=== PATIENT | male | born 1945 | race Caucasian/White ===

== ENCOUNTER 2016-12-02 17:18 | Emergency (ER) | payer MEDICARE ==
[2016-12-02 17:41] VITALS: O2SAT 95
[2016-12-02] MEDS ORDERED: NORCO 5/325 MG PO ONE (17:53)
--- NOTE | 2016-12-02 18:24 | ERPHSYRPT ---
- History of Present Illness Time Seen by Provider: 12/02/16 17:24 Source: patient, family () Patient Subjective Stated Complaint: pt states he fell [place] this afternoon. pt c/o pain to left ribs. denies any other injuries. Triage Nursing Assessment: pt pink, warm, dry. no deformity noted to left ribs. pt ambulated into Er without difficulty. breathing wnl. Physician History: CC: fall Hx: 71 y/o patient of Dr Aguilar fell on the curb [place] [employer] [place] [employer]. He hit left ribs on curb. He has pain in left ribs. Fell this evening. No diff breathing. No hematuria. No neck or back pain. No other complaints or injuries. Occurred: just prior to arrival Loss of Consciousness: no loss of consciousness Severity of Pain-Max: mild Severity of Pain-Current: mild Allergies/Adverse Reactions: potassium [Potassium] Adverse Reaction (Intermediate, Verified 12/02/16 17:41) states feels hot flashes,states a presc. of it was making him itch,hot dairy Adverse Reaction (Intermediate, Uncoded 12/02/16 17:41) Diarrhea Home Medications: Cholestyramine/Aspartame [Cholestyramine Light Packet] 4 gm PO AC 08/03/14 [ History] Enalapril Maleate 10 mg [Vasotec 10 MG] 10 mg PO BID 08/03/14 [History] Gabapentin [Neurontin] 800 mg PO TID 08/03/14 [History] Lamotrigine [Lamictal] 150 mg PO BID 08/03/14 [History] Lorazepam 1 mg [Ativan 1 MG] 1 mg PO TID 08/03/14 [History] Memantine HCl [Namenda] 10 mg PO BID 08/03/14 [History] Tamsulosin HCl 0.4 mg [Flomax 0.4 MG] 0.4 mg PO HS 08/03/14 [History] Docusate Sodium 100 mg [Colace 100 MG] 100 mg PO DAILY 04/07/16 [History] Cyanocobalamin (Vitamin B-12) [Vitamin B12] 5,000 mcg PO DAILY 04/27/16 [History ] Latanoprost [Xalatan] 2.5 ml OP DAILY 04/27/16 [History] Melatonin 5 mg PO QHS 04/27/16 [History] Nitroglycerin 0.4 mg Tablet [Nitrostat 0.4 MG Tablet] 0.4 mg SL DAILY PRN PRN 04/27/16 [History] Acetaminophen [Tylenol] 325 mg PO DAILY PRN 05/05/16 [History] Aspirin 81 mg DAILY 05/05/16 [History] B2/Vit A,C & E/Lut/Zeaxanth/Mn [Icaps Tablet] 1 each PO BID 05/05/16 [History] Cholecalciferol (Vitamin D3) [Vitamin D] 400 unit PO DAILY 12/02/16 [History] Dutasteride [Avodart] 0.5 mg PO DAILY 12/02/16 [History] Famotidine [Pepcid] 40 mg PO DAILY 12/02/16 [History] Hx Tetanus, Diphtheria Vaccination/Date Given: Yes ([place]) Hx Influenza Vaccination/Date Given: Yes Hx Pneumococcal Vaccination/Date Given: No Immunizations Up to Date: Yes - Review of Systems Constitutional: No Symptoms Respiratory: No Dyspnea Cardiac: Chest Pain (left ribs) Abdominal/Gastrointestinal: No Abdominal Pain, No Nausea Musculoskeletal: Fall, No Back Pain, No Neck Pain Skin: No Rash Neurological: No Dizziness, No Focal Weakness, No Headache, No Parasthesia All Other Systems: Reviewed and Negative - Past Medical History Pertinent Past Medical History: Yes Neurological History: Alzheimer's Disease, Seizures ENT History: Cataracts, Glaucoma Cardiac History: Angina, Hypertension Respiratory History: No Pertinent History Endocrine Medical History: Other Musculoskeletal History: Osteoarthritis GI Medical History: Gallbladder Disease History: Renal Disease Psycho-Social History: Anxiety Male Reproductive Disorders: Prostate Problems - Past Surgical History Past Surgical History: Yes Neuro Surgical History: No Pertinent History Cardiac: No Pertinent History Respiratory: No Pertinent History Gastrointestinal: Hernia Repair Genitourinary: No Pertinent History Musculoskeletal: Joint Replacement Male Surgical History: Prostate Surgery Other Surgical History: dimas phaco with lens implant. prostate surgery.bilateral hip replacement - Social History Smoking Status: Never smoker Exposure to second hand smoke: No Drug Use: none Patient Lives Alone: No Significant Family History: no pertinent family hx - Nursing Vital Signs Nursing Vital Signs: Initial Vital Signs Temperature 98.1 F Temperature Source Oral Pulse Rate 83 Respiratory Rate 18 Blood Pressure [Right Arm] 146/76 Pain Intensity 9 - [place] Coma Score Best Eye Response (Monika): (4) open spontaneously Best Verbal Response ([place]): (5) oriented Best Motor Response ([place]): (6) obeys commands [place] Total: 15 - Physical Exam General Appearance: alert Head Injury: no evidence of injury Eye Exam: PERRL/EOMI ENT Exam: airway nml Neck Exam: supple, No mid-line tenderness Respiratory/Chest Exam: chest tenderness (left nandini lateral ribs, no crepitus , good breath sounds) Cardiovascular Exam: regular rate/rhythm Gastrointestinal Exam: soft, No tenderness, No distention Back Exam: normal inspection, No vertebral tenderness Extremity Exam: normal inspection, normal range of motion Neurologic Exam: alert, oriented x 3, cooperative, sensation nml, No motor deficits Skin Exam: warm, dry SpO2 Interpretation: normal SpO2: 95 Oxygen Delivery: Room Air Procedures - Limited Abd FAST Ultrasound Right Upper Quadrant Findings: No Free Fluid Left Upper Quadrant Findings: No Free Fluid Pelvis: no free fluid Progress: FAST per ERMD due to fall with left injury - Course Nursing assessment & vital signs reviewed: Yes - Radiology Exams cxr X-ray Interpretation: Reviewed by me, No Fracture, No Pneumothorax Ordered Tests: Active Orders 24 hr Category Date Time Status CHEST 2 VIEWS (PA AND LAT) Stat Exams 12/02/16 17:53 Taken [facility] Stat Lab 12/02/16 18:25 Received Medication Summary Discontinued Medications Generic Name Dose Route Start Last Admin Trade Name José Miguelq PRN Reason Stop Dose Admin Acetaminophen/Hydrocodone Bitart 1 tab 12/02/16 17:53 [place] 5/325 Mg PO 12/02/16 17:54 STAT ONE - Progress Progress Note: 12/02/16 18:36 Instr given. Counseled pt/family regarding: diagnosis, need for follow-up, rad results - Departure Time of Disposition: 18:37 Departure Disposition: Home Clinical Impression: Fall, Contusion of rib on left side Condition: Stable Critical Care Time: No Referrals: TOM AGUILAR MD [Primary Care Provider] - Instructions: Rib Contusion Additional Instructions: Ice packs off and on. Rx norco for pain. Return for trouble breathing, coughing up blood, or concerns. Follow up with Dr Aguilar. Prescriptions: Hydrocodone Bit/Acetaminophen [[place] 5-325 Tablet] 1 each PO Q6H PRN PRN #15 tablet PRN Reason: Pain
[2016-12-02] MEDS ORDERED: NORCO 5/325 MG ONE (18:41)
[2016-12-02 18:52] LABS: Collection Type CLEAN CATCH; Ph 5.5 (5-6)
[2016-12-02 18:53] LABS: COMPLETE URINE MICROSCOPIC? NO
[2016-12-02 19:05] VITALS: BP 140/80; PULSE 88
--- NOTE | 2016-12-03 08:03 | XRAY ---
Indication: Left-sided chest pain following fall. Comparison: June 03, 2016. PA/lateral chest again hyperinflated and clear. Heart and mediastinal structures within normal limits. Bony thorax intact with mild osteopenia and degenerative changes. Impression: Stable nonacute hyperinflated chest.
== END 2016-12-02 19:04 | disposition home or self-care (01) ==
LOC: ED 17:18
DX: S20.212A Contusion of left front wall of thorax, initial encounter (principal); R07.89 Other chest pain; G30.9 Alzheimer's disease, unspecified; F02.80 Dementia in other diseases classified elsewhere, unspecified severity, without behavioral disturbance, psychotic disturbance, mood disturbance, and anxiety; R56.9 Unspecified convulsions; Z79.899 Other long term (current) drug therapy; W10.1XXA Fall (on)(from) sidewalk curb, initial encounter; Y92.511 Restaurant or cafe as the place of occurrence of the external cause; I10 Essential (primary) hypertension
CPT/HCPCS: 71020; 81000; 99283; A9270-GY

== ENCOUNTER 2017-08-28 05:50 | Emergency (ER) | payer MEDICARE ==
[2017-08-28 05:58] VITALS: O2SAT 95
--- NOTE | 2017-08-28 06:35 | ERPHSYRPT ---
- History of Present Illness Time Seen by Provider: 08/28/17 06:31 Source: patient, EMS, long term records Exam Limitations: no limitations Patient Subjective Stated Complaint: Fall Triage Nursing Assessment: Pt sent from [facility] fall with abrasion to bridge of nose. Pt states no loss of consciousness, hx of alzheimers but currently A&O x4. No distress noted. Skin PWD. PERRL. Physician History: Pt sent from [facility] fall with abrasion to bridge of nose. Pt states no loss of consciousness, no other injuries noted Occurred: just prior to arrival Reason for Fall: tripped Injuries/Pain Location: face Loss of Consciousness: no loss of consciousness Severity of Pain-Max: mild Severity of Pain-Current: mild Modifying Factors: Improves With: nothing Associated Symptoms (Fall): denies symptoms Allergies/Adverse Reactions: potassium [Potassium] Adverse Reaction (Intermediate, Verified 12/02/16 17:41) states feels hot flashes,states a presc. of it was making him itch,hot dairy Adverse Reaction (Intermediate, Uncoded 12/02/16 17:41) Diarrhea Home Medications: Cholestyramine/Aspartame [Cholestyramine Light Packet] 4 gm PO AC 08/03/14 [ History] Enalapril Maleate 10 mg [Vasotec 10 MG] 10 mg PO BID 08/03/14 [History] Gabapentin [Neurontin] 800 mg PO TID 08/03/14 [History] Lamotrigine [Lamictal] 150 mg PO BID 08/03/14 [History] Lorazepam 1 mg [Ativan 1 MG] 1 mg PO TID 08/03/14 [History] Memantine HCl [Namenda] 10 mg PO BID 08/03/14 [History] Tamsulosin HCl 0.4 mg [Flomax 0.4 MG] 0.4 mg PO HS 08/03/14 [History] Docusate Sodium 100 mg [Colace 100 MG] 100 mg PO DAILY 04/07/16 [History] Cyanocobalamin (Vitamin B-12) [Vitamin B12] 5,000 mcg PO DAILY 04/27/16 [History ] Latanoprost [Xalatan] 2.5 ml OP DAILY 04/27/16 [History] Melatonin 5 mg PO QHS 04/27/16 [History] Nitroglycerin 0.4 mg Tablet [Nitrostat 0.4 MG Tablet] 0.4 mg SL DAILY PRN PRN 04/27/16 [History] Acetaminophen [Tylenol] 325 mg PO DAILY PRN 05/05/16 [History] Aspirin 81 mg DAILY 05/05/16 [History] B2/Vits A,C,E/Lut/Zeaxanth/Min [Icaps Tablet] 1 each PO BID 05/05/16 [History] Cholecalciferol (Vitamin D3) [Vitamin D] 400 unit PO DAILY 12/02/16 [History] Dutasteride [Avodart] 0.5 mg PO DAILY 12/02/16 [History] Famotidine [Pepcid] 40 mg PO DAILY 12/02/16 [History] Hx Tetanus, Diphtheria Vaccination/Date Given: No Hx Influenza Vaccination/Date Given: Yes Hx Pneumococcal Vaccination/Date Given: Yes Immunizations Up to Date: No - Review of Systems Constitutional: No Symptoms Eyes: No Symptoms Ears, Nose, & Throat: No Symptoms Respiratory: No Symptoms Cardiac: No Symptoms Abdominal/Gastrointestinal: No Symptoms Genitourinary Symptoms: No Symptoms Musculoskeletal: Fall Skin: Other (few abrasions on left forehead) Neurological: No Symptoms - Past Medical History Pertinent Past Medical History: Yes Neurological History: Alzheimer's Disease, Seizures ENT History: Cataracts, Glaucoma Cardiac History: Angina, Hypertension Respiratory History: No Pertinent History Endocrine Medical History: Other Musculoskeletal History: Osteoarthritis GI Medical History: Gallbladder Disease History: Renal Disease Psycho-Social History: Anxiety Male Reproductive Disorders: Prostate Problems Other Medical History: KIDNEY ISSUES TO SEE NEPROLOGIST NEXT MONTH - Past Surgical History Past Surgical History: Yes Neuro Surgical History: No Pertinent History Cardiac: No Pertinent History Respiratory: No Pertinent History Gastrointestinal: Hernia Repair Genitourinary: No Pertinent History Musculoskeletal: Joint Replacement Male Surgical History: Prostate Surgery Other Surgical History: dimas phaco with lens implant. prostate surgery.bilateral hip replacement - Social History Smoking Status: Never smoker Exposure to second hand smoke: No Drug Use: none Patient Lives Alone: No Significant Family History: no pertinent family hx - Nursing Vital Signs Nursing Vital Signs: Initial Vital Signs Temperature 97.9 F 08/28/17 05:51 Pulse Rate 100 H 08/28/17 05:51 Respiratory Rate 15 08/28/17 05:51 Blood Pressure 167/83 08/28/17 05:51 O2 Sat by Pulse Oximetry 95 08/28/17 05:51 Pain Scale Pain Intensity 0 - [place] Coma Score Best Eye Response ([place]): (4) open spontaneously Best Verbal Response ([place]): (5) oriented Best Motor Response ([place]): (6) obeys commands [place] Total: 15 - Physical Exam General Appearance: no apparent distress, alert Head Injury: no evidence of injury Eye Exam: PERRL/EOMI ENT Exam: airway nml Neck Exam: normal inspection, No tenderness Respiratory/Chest Exam: normal breath sounds, No chest tenderness, No respiratory distress Cardiovascular Exam: normal heart sounds, regular rate/rhythm Gastrointestinal Exam: soft, No tenderness, No distention, No guarding, No ecchymosis Back Exam: normal inspection, No vertebral tenderness Extremity Exam: normal inspection, normal range of motion, pelvis stable, No deformities Neurologic Exam: alert, oriented x 3, cooperative, sensation nml, No motor deficits Skin Exam: normal color, warm, dry, other (few superficial abrasions on left forehead) SpO2: 95 Oxygen Delivery: Room Air - Course Nursing assessment & vital signs reviewed: Yes - Radiology Exams Facial X-ray Interpretation: Reviewed by me Ordered Tests: Active Orders 24 hr Category Date Time Status FACIAL BONES (MINIMUM 3 VIEWS) Stat Exams 08/28/17 06:11 Ordered - Progress Progress: improved Counseled pt/family regarding: diagnosis, need for follow-up, rad results - Departure Time of Disposition: 06:34 Departure Disposition: Extended Care Facility Clinical Impression: Contusion of face Qualifiers: Encounter type: initial encounter Qualified Code(s): S00.83XA - Contusion of other part of head, initial encounter Fall at long term Qualifiers: Encounter type: initial encounter Qualified Code(s): W19.XXXA - Unspecified fall, initial encounter Condition: Stable Critical Care Time: No Referrals: VICENTE MANDEL [Primary Care Provider] - Instructions: Contusion, Prevent Falls Additional Instructions: SPRAINS/STRAINS/CONTUSIONS 1. Rest the affected area as much as possible for the next few days. 2. Apply ice to the affected area for 20-30 minutes at a time, several times a day. 3. If you receive an elastic wrap, wear it only while awake for comfort and support. Re-wrap the elastic wrap if it feels too tight or too loose. 4. If swelling is present, elevate the affected part above the level of the heart for at least 2 to 3 days. 5. Use splints, slings, or crutches as instructed. 6. Watch for severe swelling, coldness, numbness, and discoloration of the fingers and toes. See your family physician or return to the emergency department if any of these are noted.
[2017-08-28 07:57] VITALS: BP 155/84; PULSE 94
--- NOTE | 2017-08-28 09:38 | XRAY ---
Indication: Pain following fall. Comparison: None 4 views of the facial bones demonstrates minimally angulated fracture involving the tip of the nasal bone with overlying soft tissue swelling. Paranasal sinuses clear. No other bony, articular, or soft tissue abnormalities. Comment: Fracture not reported by the ER clinician. Telephone report given to Dr. Silva at 0930 hrs. on August 28, 2017.
== END 2017-08-28 07:45 ==
LOC: ED 05:50
DX: S00.83XA Contusion of other part of head, initial encounter (principal); S00.31XA Abrasion of nose, initial encounter; W19.XXXA Unspecified fall, initial encounter; Y93.9 Activity, unspecified; Y92.129 Unspecified place in nursing home as the place of occurrence of the external cause; I10 Essential (primary) hypertension; G40.909 Epilepsy, unspecified, not intractable, without status epilepticus; M19.90 Unspecified osteoarthritis, unspecified site; G30.9 Alzheimer's disease, unspecified; F02.80 Dementia in other diseases classified elsewhere, unspecified severity, without behavioral disturbance, psychotic disturbance, mood disturbance, and anxiety; Z79.899 Other long term (current) drug therapy; K82.9 Disease of gallbladder, unspecified; N28.9 Disorder of kidney and ureter, unspecified; F41.9 Anxiety disorder, unspecified
CPT/HCPCS: 70150; 99282

== ENCOUNTER 2020-03-26 14:03 | Emergency (ER) | payer MEDICARE ==
[2020-03-26 14:21] VITALS: BP 173/90; PULSE 80; O2SAT 98
--- NOTE | 2020-03-26 15:15 | XRAY ---
Indication: Abdomen/bowel pain. History constipation. Multiple contiguous axial images obtained through the abdomen and pelvis without contrast as ordered. Comparison: April 07, 2016. Lung bases again demonstrates bibasilar subsegmental atelectasis/scarring. Heart is not enlarged. Images through the pelvis Limited due to extreme beam artifact from bilateral total hip arthroplasty. Noncontrasted stomach and bowel loops again nonobstructed. There remains mild/moderate diffuse scattered colonic fecal debris throughout now including rectum. No free fluid/air. Interval cholecystectomy. Again micro-calculus in each kidney and scattered splenic calcified granulomas. Remaining liver, pancreas, spleen, adrenal glands, kidneys, ureters, and bladder appear unremarkable for noncontrast exam. There remains mild aortoiliac calcifications without AAA. Osseous structures again demonstrate osteopenia and mild/moderate degenerative changes throughout the thoracolumbar spine. New bilateral L1-L5 facet screws. Impression: 1. Again diffuse fecal stasis with now mild rectal impaction. 2. Stable nonobstructing bilateral renal micro-calculus and chronic bony findings. 3. New bilateral L4-L5 facet screws.
--- NOTE | 2020-03-26 15:20 | ERPHSYRPT ---
- History of Present Illness Time Seen by Provider: 03/26/20 14:19 Historian: patient Exam Limitations: no limitations Patient Subjective Stated Complaint: pt here for constipation today, he had a small b, but states there is pressure to rectum and he can feel stool Triage Nursing Assessment: pt alert, arrived per wc, skin w/d/p. resp easy, abd soft Physician History: Patient is a 74-year-old male presents to our ED for evaluation of constipation. Patient has not had a bowel movement in several days. Patient attempted a bowel movement earlier today and was unable to do so. Patient assisted himself with his digit and passed a small amount. Patient is here due to pain in his rectum. Patient states he feels as though it wants to come out but nothing is passing. No other symptomology. No nausea or vomiting. No fever. No trauma. No back pain. Symptoms are mild to moderate in intensity. No specific worsening improving factors. Patient voices no other complaints at this time. Timing/Duration: day(s) Activities at Onset: none Quality: pressure (Pressure sensation in rectum.) Abdominal Pain Onset Location: other (Nominal pain.) Pain Radiation: no radiation Severity of Pain-Current: mild Modifying Factors: Improves With: nothing Associated Symptoms: denies symptoms Previous symptoms: no prior history Allergies/Adverse Reactions: potassium [Potassium] Adverse Reaction (Intermediate, Verified 12/02/16 17:41) states feels hot flashes,states a presc. of it was making him itch,hot dairy Adverse Reaction (Intermediate, Uncoded 12/02/16 17:41) Diarrhea Home Medications: Cholestyramine/Aspartame [Cholestyramine Light Packet] 4 gm PO PC 08/03/14 [History] Enalapril Maleate 10 mg [Vasotec 10 MG] 10 mg PO BID 08/03/14 [History] Gabapentin [Neurontin] 800 mg PO QID 08/03/14 [History] Lorazepam 1 mg [Ativan 1 MG] 1 mg PO TID 08/03/14 [History] Memantine HCl [Namenda] 10 mg PO BID 08/03/14 [History] Tamsulosin HCl 0.4 mg [Flomax 0.4 MG] 0.4 mg PO HS 08/03/14 [History] lamoTRIgine [Lamictal] 150 mg PO BID 08/03/14 [History] Docusate Sodium 100 mg [Colace 100 MG] 100 mg PO DAILY 04/07/16 [History] Cyanocobalamin (Vitamin B-12) [Vitamin B12] 2,500 mcg PO DAILY 04/27/16 [History] Latanoprost [Xalatan] 1 drop OP DAILY 04/27/16 [History] Melatonin 5 mg PO QHS 04/27/16 [History] Nitroglycerin 0.4 mg Tablet [Nitrostat 0.4 MG Tablet] 0.4 mg SL DAILY PRN PRN 04/27/16 [History] Acetaminophen [Tylenol] 325 mg PO DAILY PRN 05/05/16 [History] Aspirin 81 mg PO DAILY 05/05/16 [History] B2/Vits A,C,E/Lut/Zeaxanth/Min [Icaps Tablet] 1 each PO BID 05/05/16 [History] Cholecalciferol (Vitamin D3) [Vitamin D] 400 unit PO DAILY 12/02/16 [History] Dutasteride [Avodart] 0.5 mg PO DAILY 12/02/16 [History] Famotidine [Pepcid] 40 mg PO DAILY 12/02/16 [History] Amlodipine Besylate 5 mg [Norvasc 5 mg] 5 mg PO DAILY 03/26/20 [History] Carboxymethylcell/Glycerin/Pf [Lubricant 0.5-0.9% Eye Drops] 1 drop OP DAILY PRN 03/26/20 [History] Diphenoxylate HCl/Atropine [Diphenoxylate-Atrop 2.5-0.025] 1 tablet PO DAILY 03/26/20 [History] Ferrous Sulfate 325 mg [Feosol 325 mg] 1 tablet PO DAILY 03/26/20 [History] Folic Acid 1 mg [Folate 1 mg] 1 mg PO DAILY 03/26/20 [History] Furosemide 40 mg [Lasix 40 MG] 40 mg PO DAILY 03/26/20 [History] Magnesium Oxide 400 mg [Mag-Ox 400] 400 mg PO BID 03/26/20 [History] Spironolactone 25 mg [Aldactone 25 MG] 25 mg PO DAILY 03/26/20 [History] Hx Tetanus, Diphtheria Vaccination/Date Given: No Hx Influenza Vaccination/Date Given: Yes Hx Pneumococcal Vaccination/Date Given: Yes Immunizations Up to Date: Yes Travel Risk - International Travel Have you traveled outside of the country in past 3 weeks: No - Coronavirus Screening Close contact with a COVID-19 positive Pt in past 14-21 Days: No - Review of Systems Constitutional: No Symptoms, No Fever, No Chills Eyes: No Symptoms Ears, Nose, & Throat: No Symptoms Respiratory: No Symptoms, No Cough, No Dyspnea Cardiac: No Symptoms, No Chest Pain, No Edema, No Syncope Abdominal/Gastrointestinal: No Symptoms, No Abdominal Pain, No Nausea, No Vomiting, No Diarrhea Genitourinary Symptoms: No Symptoms, No Dysuria Musculoskeletal: No Symptoms, No Back Pain, No Neck Pain Skin: No Symptoms, No Rash Neurological: No Symptoms, No Dizziness, No Focal Weakness, No Sensory Changes Psychological: No Symptoms Endocrine: No Symptoms Hematologic/Lymphatic: No Symptoms Immunological/Allergic: No Symptoms All Other Systems: Reviewed and Negative - Past Medical History Pertinent Past Medical History: Yes Neurological History: Alzheimer's Disease ENT History: Cataracts, Glaucoma Cardiac History: Hypertension Respiratory History: No Pertinent History Endocrine Medical History: No Pertinent History Musculoskeletal History: Arthritis GI Medical History: Gallbladder Disease History: Renal Disease Psycho-Social History: Anxiety Male Reproductive Disorders: Prostate Problems Other Medical History: KIDNEY ISSUES TO SEE NEPROLOGIST NEXT MONTH - Past Surgical History Past Surgical History: Yes Neuro Surgical History: No Pertinent History Cardiac: No Pertinent History Respiratory: No Pertinent History Gastrointestinal: Hernia Repair Genitourinary: No Pertinent History Musculoskeletal: Joint Replacement, Orthopedic Surgery Male Surgical History: Prostate Surgery Other Surgical History: dimas phaco with lens implant. prostate surgery.bilateral hip replacement,back - Social History Smoking Status: Never smoker Exposure to second hand smoke: No Drug Use: none Patient Lives Alone: No Significant Family History: no pertinent family hx - Nursing Vital Signs Nursing Vital Signs: Initial Vital Signs Temperature 97.9 F 03/26/20 14:15 Pulse Rate 80 03/26/20 14:15 Respiratory Rate 18 03/26/20 14:15 Blood Pressure 173/90 03/26/20 14:15 O2 Sat by Pulse Oximetry 98 03/26/20 14:15 Pain Scale Pain Intensity 10 - Physical Exam General Appearance: no apparent distress, alert Eye Exam: PERRL/EOMI, eyes nml inspection Ears, Nose, Throat Exam: normal ENT inspection, pharynx normal, moist mucous membranes Neck Exam: normal inspection, non-tender, supple, full range of motion Respiratory Exam: normal breath sounds, lungs clear, No respiratory distress Cardiovascular Exam: regular rate/rhythm, normal heart sounds Gastrointestinal/Abdomen Exam: soft, distention, other (Mildly distended abdomen.), No tenderness, No mass Back Exam: normal inspection, normal range of motion, No CVA tenderness, No vertebral tenderness Extremity Exam: normal inspection, normal range of motion, pelvis stable Neurologic Exam: alert, oriented x 3, cooperative, normal mood/affect, nml cerebellar function, sensation nml, No motor deficits Skin Exam: normal color, warm, dry SpO2 Interpretation: normal SpO2: 98 O2 Delivery: Room Air - Course Nursing assessment & vital signs reviewed: Yes - CT Exams Abdomen/Pelvis CT Interpretation: Tele-radiologist Report (Diffuse fecal stasis with now mild rectal impaction. Stable nonobstructing bilateral renal micro calculus and chronic bony findings. New bilateral L4-L5 facet screws.) Ordered Tests: Active Orders 24 hr Category Date Time Status Enema STAT Care 03/26/20 15:28 Active ABDOMEN AND PELVIS W/0 CONTRAS [CT] Stat Exams 03/26/20 14:23 Completed Medication Summary Discontinued Medications Generic Name Dose Route Start Last Admin Trade Name Freq PRN Reason Stop Dose Admin Ketorolac Tromethamine 30 mg 03/26/20 15:26 03/26/20 15:30 Toradol 30 Mg Injection IM 03/26/20 15:27 30 mg STAT ONE Administration Ketorolac Tromethamine Confirm 03/26/20 15:29 Toradol 30 Mg Injection Administered 03/26/20 15:30 Dose 30 mg .ROUTE .Pay-Me-MED ONE - Progress Progress: improved Progress Note: 03/26/20 17:[address] reveals fecal impaction. Patient was digitally disimpacted. Patient was given an enema. Patient had a bowel movement. Abdominal pain resolved. Patient requesting discharge. Patient agrees to follow-up with his primary care doctor within 48 hours reevaluation. Counseled pt/family regarding: diagnosis, need for follow-up, rad results - Departure Departure Disposition: Home Clinical Impression: Constipation, Nephrolithiasis, Osteopenia, Arthritis, lumbar spine Condition: Stable Critical Care Time: No Referrals: TOM AGUILAR MD [Primary Care Provider] - Additional Instructions: Discharge/Care Plan VIRGINIE SOL was seen on 03/26/20 in the Emergency Room. The patient was counseled regarding Diagnosis,Lab results, Imaging studies, need for follow up and when to return to the Emergency Room. Prescriptions given: Discharge Note I have spoken with the patient and/or caregivers. I have explained the patient's condition, diagnosis and treatment plan based on the information available to me at this time. I have answered the patient's and/or caregiver's questions and addressed any concerns. The patient and/or caregivers have as good understanding of the patient's diagnosis, condition and treatment plan as can be expected at this point. The vital signs have been stable. The patient's condition is stable and appropriate for discharge from the emergency department. The patient will pursue further outpatient evaluation with the primary care physician or other designated or consulting physician as outlined in the discharge instructions. The patient and/or caregivers are agreeable to this plan of care and follow-up instructions have been explained in detail. The patient and/or caregivers have received these instruction. The patient/and or caregivers are aware that any significant change in condition or worsening of symptoms should prompt an immediate return to this or the closest emergency department or call 911.
[2020-03-26] MEDS ORDERED: TORAdol 30 mg Injection IM ONE (15:26)
[2020-03-26] MEDS ORDERED: TORAdol 30 mg Injection ONE (15:29)
== END 2020-03-26 17:08 | disposition home or self-care (01) ==
LOC: ED 14:03
DX: K59.00 Constipation, unspecified (principal); N20.0 Calculus of kidney; M85.80 Other specified disorders of bone density and structure, unspecified site; M19.90 Unspecified osteoarthritis, unspecified site; M46.86 Other specified inflammatory spondylopathies, lumbar region; G30.9 Alzheimer's disease, unspecified; F02.80 Dementia in other diseases classified elsewhere, unspecified severity, without behavioral disturbance, psychotic disturbance, mood disturbance, and anxiety; Z79.899 Other long term (current) drug therapy
CPT/HCPCS: 74176; 96372; 99284; J1885

== ENCOUNTER 2020-07-14 10:28 | Observation (INO) | payer MEDICARE ==
[2020-07-14] MEDS ORDERED: Sodium Chloride 0.9% 1000 ML 1,000 ML IV SCH (10:45)
[2020-07-14 11:05] LABS: Absolute Neutrophil Ct (ANC) 6.31 (1.4-6.9); Basophil (Absolute #) 0 (0-0.4); Eosinophil (Absolute #) 0 (0-0.5); Hematocrit 47.4 % (42-50); Hemoglobin 16.3 gm/dl (12.5-18.0); Lymphocyte (Absolute #) 0.82 (1.0-4.6); Lymphocytes % 10.3 % (24.0-44.0); Mean Cell Volume 101.1 fl (78-100); Mean Corpuscular Hemoglobin 34.8 pg (26-32); Mean Corpuscular Hgb Concent. 34.4 g/dl (32-36); Mean Platelet Volume 9.4 fl (7.5-11.0); Monocyte (Absolute #) 0.87 (0.0-1.3); Monocytes % 10.9 % (0.0-12.0); Neutrophil % 78.8 % (36.0-66.0); Platelet Count 124 K/mm3 (150-450); Red Blood Count 4.69 M/mm3 (4.1-5.6); Red Cell Distribution Width 13.9 % (11.5-14.0)
--- NOTE | 2020-07-14 11:12 | ERPHSYRPT ---
- History of Present Illness Time Seen by Provider: 07/14/20 10:45 Source: patient Exam Limitations: no limitations Patient Subjective Stated Complaint: SOB Triage Nursing Assessment: Patient brought to ED via EMS and transferred to bed with assist of 3. Patient A+O X3. Patient's skin flushed, warm and dry. Patient complains of SOB, cough, fever, body aches for the past 8 days that has increased today. Patient's lungs clear a/p Dimas. Patient has non productive cough. Physician History: Patient is a 75-year-old male presents to our ED via EMS for evaluation of fever cough shortness of breath generalized myalgias and feeling of unwell. Symptoms started approximately 8 days ago. Symptoms have been progressive. Symptoms are moderate in intensity. No specific worsening or improving factors. No associated chest pain. No nausea or vomiting. No diarrhea. No rash. Patient voices no other complaints concerns at this time. Patient states he has a history of Alzheimer's and his recall is very poor. Timing/Duration: day(s) (Days) Fever Severity: moderate Fever Therapy [employer]: none Associated Symptoms: No abdominal pain, No chest pain, No confusion, No diaphoresis, No headache, No muscle aches, No nausea/vomiting, No rash, No rhinorrhea, No shortness of breath, No stiff neck, No syncope Allergies/Adverse Reactions: potassium [Potassium] Adverse Reaction (Intermediate, Verified 07/14/20 10:36) states feels hot flashes,states a presc. of it was making him itch,hot dairy Adverse Reaction (Intermediate, Uncoded 07/14/20 10:36) Diarrhea Home Medications: Cholestyramine/Aspartame [Cholestyramine Light Packet] 4 gm PO PC 08/03/14 [History] Enalapril Maleate 10 mg [Vasotec 10 MG] 10 mg PO BID 08/03/14 [History] Gabapentin [Neurontin] 800 mg PO QID 08/03/14 [History] Lorazepam 1 mg [Ativan 1 MG] 1 mg PO TID 08/03/14 [History] Memantine HCl [Namenda] 10 mg PO BID 08/03/14 [History] Tamsulosin HCl 0.4 mg [Flomax 0.4 MG] 0.4 mg PO HS 08/03/14 [History] lamoTRIgine [Lamictal] 150 mg PO BID 08/03/14 [History] Docusate Sodium 100 mg [Colace 100 MG] 100 mg PO DAILY 04/07/16 [History] Cyanocobalamin (Vitamin B-12) [Vitamin B12] 2,500 mcg PO DAILY 04/27/16 [History] Latanoprost [Xalatan] 1 drop OP DAILY 04/27/16 [History] Nitroglycerin 0.4 mg Tablet [Nitrostat 0.4 MG Tablet] 0.4 mg SL DAILY PRN PRN 04/27/16 [History] Aspirin 81 mg PO DAILY 05/05/16 [History] B2/Vits A,C,E/Lut/Zeaxanth/Min [Icaps Tablet] 1 each PO BID 05/05/16 [History] Cholecalciferol (Vitamin D3) [Vitamin D] 400 unit PO DAILY 12/02/16 [History] Dutasteride [Avodart] 0.5 mg PO DAILY 12/02/16 [History] Famotidine [Pepcid] 40 mg PO DAILY 12/02/16 [History] Amlodipine Besylate 5 mg [Norvasc 5 mg] 5 mg PO DAILY 03/26/20 [History] Carboxymethylcell/Glycerin/Pf [Lubricant 0.5-0.9% Eye Drops] 1 drop OP DAILY PRN 03/26/20 [History] Diphenoxylate HCl/Atropine [Diphenoxylate-Atrop 2.5-0.025] 1 tablet PO BID PRN 03/26/20 [History] Ferrous Sulfate 325 mg [Feosol 325 mg] 1 tablet PO BID 03/26/20 [History] Folic Acid 1 mg [Folate 1 mg] 1 mg PO DAILY 03/26/20 [History] Furosemide 40 mg [Lasix 40 MG] 40 mg PO DAILY 03/26/20 [History] Magnesium Oxide 400 mg [Mag-Ox 400] 400 mg PO BID 03/26/20 [History] Spironolactone 25 mg [Aldactone 25 MG] 25 mg PO DAILY 03/26/20 [History] Hx Tetanus, Diphtheria Vaccination/Date Given: No Hx Influenza Vaccination/Date Given: Yes Hx Pneumococcal Vaccination/Date Given: Yes Immunizations Up to Date: Yes Travel Risk - International Travel Have you traveled outside of the country in past 3 weeks: No - Coronavirus Screening Are you exhibiting any of the following symptoms?: Yes Symptoms: Fever, Cough: New Onset, Shortness of Breath, Headaches/Body Aches/Fatigue Close contact with a COVID-19 positive Pt in past 14-21 Days: No - Review of Systems Constitutional: No Symptoms, No Fever, No Chills Eyes: No Symptoms Ears, Nose, & Throat: No Symptoms Respiratory: No Symptoms, No Cough, No Dyspnea Cardiac: No Symptoms, No Chest Pain, No Edema, No Syncope Abdominal/Gastrointestinal: No Symptoms, No Abdominal Pain, No Nausea, No Vomiting, No Diarrhea Genitourinary Symptoms: No Symptoms, No Dysuria Musculoskeletal: No Symptoms, No Back Pain, No Neck Pain Skin: No Symptoms, No Rash Neurological: No Symptoms, No Dizziness, No Focal Weakness, No Sensory Changes Psychological: No Symptoms Endocrine: No Symptoms Hematologic/Lymphatic: No Symptoms Immunological/Allergic: No Symptoms All Other Systems: Reviewed and Negative - Past Medical History Pertinent Past Medical History: Yes Neurological History: Alzheimer's Disease ENT History: Cataracts, Glaucoma Cardiac History: Hypertension Respiratory History: No Pertinent History Endocrine Medical History: No Pertinent History Musculoskeletal History: Arthritis GI Medical History: Gallbladder Disease History: Renal Disease Psycho-Social History: Anxiety Male Reproductive Disorders: Prostate Problems Other Medical History: KIDNEY ISSUES TO SEE NEPROLOGIST NEXT MONTH - Past Surgical History Past Surgical History: Yes Neuro Surgical History: No Pertinent History Cardiac: No Pertinent History Respiratory: No Pertinent History Gastrointestinal: Hernia Repair Genitourinary: No Pertinent History Musculoskeletal: Joint Replacement, Orthopedic Surgery Male Surgical History: Prostate Surgery Other Surgical History: dimas phaco with lens implant. prostate surgery.bilateral hip replacement,back - Social History Smoking Status: Never smoker Exposure to second hand smoke: No Drug Use: none Patient Lives Alone: No Significant Family History: no pertinent family hx - Nursing Vital Signs Nursing Vital Signs: Initial Vital Signs Temperature 100.3 F 07/14/20 10:39 Pulse Rate 102 H 07/14/20 10:39 Respiratory Rate 35 H 07/14/20 10:39 Blood Pressure 154/88 07/14/20 10:39 O2 Sat by Pulse Oximetry 95 07/14/20 10:39 Pain Scale Pain Intensity 5 - Physical Exam General Appearance: no apparent distress, alert Eye Exam: PERRL/EOMI ENT Exam: normal ENT inspection, No pharyngeal erythema, No tonsillar exudate Neck Exam: supple, full range of motion, No meningismus Respiratory Exam: normal breath sounds, lungs clear (Lungs are clear. Patient denies shortness of breath. But states when he puts his mask on it becomes difficult for him to breathe.), no respiratory distress Cardiovascular/Chest Exam: normal heart sounds, regular rate/rhythm, No murmur, No edema Gastrointestinal/Abdominal Exam: soft, non tender, no distention Extremity Exam: non-tender, normal range of motion, normal inspection, normal capillary refill, no pedal edema Neurologic Exam: alert, oriented x 3, cooperative, radarman II-XII nml as tested, normal mood/affect, sensation nml, No motor deficits Skin Exam: normal color, warm, dry, No rash SpO2 Interpretation: normal SpO2: 96 O2 Delivery: Room Air - Course Nursing assessment & vital signs reviewed: Yes EKG Interpreted by Me: RATE ([id number]), Sinus Tach, NORMAL AXIS, Right Bundle Branch Block - Radiology Exams Chest X-ray Interpretation: Teleradiologist Report (Bibasilar atelectasis otherwise normal chest x-ray.) Ordered Tests: Active Orders 24 hr Category Date Time Status Door Worker STAT Care 07/14/20 10:34 Active EKG-ER Only STAT Care 07/14/20 10:32 Active IV Insertion STAT Care 07/14/20 10:32 Active Pulse Oximetry (ED) STAT Care 07/14/20 10:32 Active CHEST 1 VIEW (PORTABLE) Stat Exams 07/14/20 10:34 Completed BLOOD CULTURE Stat Lab 07/14/20 11:00 Received CBC W DIFF Stat Lab 07/14/20 11:00 Completed CMP Stat Lab 07/14/20 11:00 Completed D-DIMER QUANTITATIVE Stat Lab 07/14/20 11:23 Completed INFLUENZA A+B JAH Stat Lab 07/14/20 11:00 Completed Lactic Acid Stat Lab 07/14/20 11:00 Completed UA W/RFX UR CULTURE Stat Lab 07/14/20 10:33 Ordered Transfer Order Routine Transfer 07/14/20 Ordered Medication Summary Generic Name Dose Route Start Last Admin Trade Name Jhoana PRN Reason Stop Dose Admin Sodium Chloride 1,000 mls @ 50 mls/hr 07/14/20 10:45 07/14/20 10:58 Sodium Chloride 0.9% 1000 Ml IV 08/13/20 10:44 50 mls/hr .Q20H WILLARD Administration Discontinued Medications Generic Name Dose Route Start Last Admin Trade Name Jhoana PRN Reason Stop Dose Admin Dexamethasone Sodium Phosphate 8 mg 07/14/20 11:40 07/14/20 11:46 Decadron 10mg Inj. PO 07/14/20 11:41 8 mg STAT ONE Administration Dexamethasone Sodium Phosphate Confirm 07/14/20 11:44 Decadron 10mg Inj. Administered 07/14/20 11:45 Dose 10 mg .ROUTE .STK-MED ONE Enoxaparin Sodium 80 mg 07/14/20 12:48 07/14/20 12:53 Enoxaparin Sodium SQ 07/14/20 12:49 80 mg STAT ONE Administration Enoxaparin Sodium Confirm 07/14/20 12:53 Enoxaparin Sodium Administered 07/14/20 12:54 Dose 80 mg SQ .STK-MED ONE Lab/Rad Data: Laboratory Result Diagrams 07/14/20 11:00 07/14/20 11:00 Laboratory Results 07/14/20 07/14/20 07/14/20 Range/Units 11:35 11:23 11:00 WBC (4.0-10.5) K/mm3 RBC (4.1-5.6) M/mm3 Hgb (12.5-18.0) gm/dl Hct (42-50) % MCV (78-100) fl MCH (26-32) pg MCHC (32-36) g/dl RDW (11.5-14.0) % Plt Count (150-450) K/mm3 MPV (7.5-11.0) fl Gran % (36.0-66.0) % Eos # (Auto) (0-0.5) Absolute Lymphs (auto) (1.0-4.6) Absolute Monos (auto) (0.0-1.3) Lymphocytes % (24.0-44.0) % Monocytes % (0.0-12.0) % Eosinophils % (0.00-5.0) % Basophils % (0.0-0.4) % Absolute Granulocytes (1.4-6.9) Basophils # (0-0.4) D-Dimer 1538 H* (215-500) ng/mL Sodium (137-145) mmol/L Potassium (3.5-5.1) mmol/L Chloride (98-107) mmol/L Carbon Dioxide (22-30) mmol/L Anion Gap (5-15) MEQ/L BUN (9-20) mg/dL Creatinine (0.66-1.25) mg/dL Estimated GFR ML/MIN Glucose (74-106) mg/dL Lactic Acid (0.4-2.0) Calcium (8.4-10.2) mg/dL Total Bilirubin (0.2-1.3) mg/dL AST (17-59) U/L ALT (0-50) U/L Alkaline Phosphatase (38-126) U/L Serum Total Protein (6.3-8.2) g/dL Albumin (3.5-5.0) g/dL Influenza Type A Ag NEGATIVE (NEGATIVE) Influenza Type B Ag NEGATIVE (NEGATIVE) SARS-CoV-2 (PCR) POSITIVE A (NEGATIVE) 07/14/20 07/14/20 07/14/20 Range/Units 11:00 11:00 11:00 WBC 8.0 (4.0-10.5) K/mm3 RBC 4.69 (4.1-5.6) M/mm3 Hgb 16.3 (12.5-18.0) gm/dl Hct 47.4 (42-50) % MCV 101.1 H (78-100) fl MCH 34.8 H (26-32) pg MCHC 34.4 (32-36) g/dl RDW 13.9 (11.5-14.0) % Plt Count 124 L (150-450) K/mm3 MPV 9.4 (7.5-11.0) fl Gran % 78.8 H (36.0-66.0) % Eos # (Auto) 0 (0-0.5) Absolute Lymphs (auto) 0.82 L (1.0-4.6) Absolute Monos (auto) 0.87 (0.0-1.3) Lymphocytes % 10.3 L (24.0-44.0) % Monocytes % 10.9 (0.0-12.0) % Eosinophils % 0.0 (0.00-5.0) % Basophils % 0.0 (0.0-0.4) % Absolute Granulocytes 6.31 (1.4-6.9) Basophils # 0 (0-0.4) D-Dimer (215-500) ng/mL Sodium 135 L (137-145) mmol/L Potassium 4.3 (3.5-5.1) mmol/L Chloride 106 (98-107) mmol/L Carbon Dioxide 22 (22-30) mmol/L Anion Gap 11.3 (5-15) MEQ/L BUN 31 H (9-20) mg/dL Creatinine 1.69 H (0.66-1.25) mg/dL Estimated GFR 42.1 ML/MIN Glucose 131 H (74-106) mg/dL Lactic Acid 1.2 (0.4-2.0) Calcium 8.7 (8.4-10.2) mg/dL Total Bilirubin 0.60 (0.2-1.3) mg/dL AST 53 (17-59) U/L ALT 26 (0-50) U/L Alkaline Phosphatase 70 (38-126) U/L Serum Total Protein 7.2 (6.3-8.2) g/dL Albumin 3.7 (3.5-5.0) g/dL Influenza Type A Ag (NEGATIVE) Influenza Type B Ag (NEGATIVE) SARS-CoV-2 (PCR) (NEGATIVE) - Progress Progress: improved Progress Note: 07/14/20 12:56 Work-up reveals patient is Covid positive. Patient currently in isolation for Covid. Case discussed with Dr. Mendosa our physician covering the Covid unit. Patient accepted to admission to our Covid unit. D-dimer positive. Due to chronic renal sufficiency patient not a candidate for CTA chest. Patient received a dose of weight-based Lovenox. Per admitting physician patient will receive this throughout his hospital stay. Plan of care discussed with patient. He agrees to admission to [facility] for further ev aluation and treatment. Patient received a dose of Decadron in our ED. Discussed with Dr.: Marc Will see patient in: hospital (observation) Counseled pt/family regarding: lab results, diagnosis, rad results - Departure Departure Disposition: Observation Clinical Impression: Thrombocytopenia, CRI (chronic renal insufficiency), COVID-19 Condition: Stable Critical Care Time: No Referrals: TMO AGUILAR MD [Primary Care Provider] -
--- NOTE | 2020-07-14 11:26 | XRAY ---
Indication: Short of breath. Comparison: December 02, 2016. Portable chest less inflated with new bibasilar discoid atelectasis/scarring. Remaining heart and upper lungs unremarkable. Bony thorax intact.
[2020-07-14 11:28] LABS: ALBUMIN 3.7 g/dL (3.5-5.0); BILIRUBIN,TOTAL 0.6 mg/dL (0.2-1.3); Calcium 8.7 mg/dL (8.4-10.2); Creatinine 1 1.69 mg/dL (0.66-1.25); EST GLOMERULAR FILTRATION RATE 42.1 ML/MIN; Total Protein 7.2 g/dL (6.3-8.2)
[2020-07-14 11:29] LABS: Potassium 4.3 mmol/L (3.5-5.1)
[2020-07-14 11:31] LABS: ANION GAP 11.3 MEQ/L (5-15)
[2020-07-14 11:33] LABS: INFLUENZA A NEGATIVE (NEGATIVE); INFLUENZA B NEGATIVE (NEGATIVE)
[2020-07-14] MEDS ORDERED: DECADRON 10MG INJ. PO ONE (11:40)
[2020-07-14] MEDS ORDERED: DECADRON 10MG INJ. ONE (11:44)
[2020-07-14] MEDS ORDERED: ENOXAPARIN SODIUM SQ ONE ×2 (12:48→12:53)
[2020-07-14] MEDS ORDERED: TYLENOL 325 MG PO PRN (14:09)
[2020-07-14] MEDS ORDERED: [UNRECOGNIZED DRUG - OTHER] OP PRN (16:41)
[2020-07-14] MEDS ORDERED: GLYCERIN OP PRN (16:41)
[2020-07-14] MEDS ORDERED: CARBOXYMETHYLCELLULOSE OP PRN (16:41)
[2020-07-14] MEDS ORDERED: Lomotil PO PRN (16:45)
[2020-07-14] MEDS ORDERED: Artificial Tears 15 ML OP PRN (16:52)
[2020-07-14] MEDS ORDERED: NEURONTIN 300 MG PO SCH (17:00)
[2020-07-14] MEDS: Neurontin 400 MG PO SCH ×2 (17:28→22:41)
[2020-07-14 18:43] LABS: Appearance SLIGHTLY CLOUDY (CLEAR); Bilirubin NEGATIVE (NEGATIVE); Blood NEGATIVE Ery/ul (0-5); Glucose NEGATIVE (NEGATIVE); Ketones TRACE (NEGATIVE); Leukocyte Esterase NEGATIVE (NEGATIVE); Mucus SLIGHT /HPF (NEGATIVE); Nitrite NEGATIVE (NEGATIVE); Protein,Urine Dip 100 (Negative); Specific Gravity 1.025 (1.005-1.025); Urobilinogen NEGATIVE mg/dL (0-1)
[2020-07-14] MEDS ORDERED: LAMOTRIGINE 150 MG PO SCH (22:00)
[2020-07-14] MEDS ORDERED: NON-FORMULARY ITEM (B2/Vits A,C,E/Lut/Zeaxanth/Min [Icaps Tablet] 1 EACH) PO SCH (22:00)
[2020-07-14] MEDS ORDERED: NON-FORMULARY ITEM (Memantine Hcl [Namenda] 10 MG) PO SCH (22:00)
[2020-07-14] MEDS: ENOXAPARIN SODIUM SQ SCH (22:30)
[2020-07-14] MEDS: MAG-OX 400 PO SCH (22:40)
[2020-07-14] MEDS: Ocuvite Tablet PO SCH (22:40)
[2020-07-14] MEDS: lamICTAL 100MG TABLET PO SCH (22:41)
[2020-07-14] MEDS: FEOSOL 325 MG PO SCH (22:42)
[2020-07-14] MEDS: Ativan 1 MG PO SCH (22:43)
[2020-07-14] MEDS: Namenda 5 MG PO SCH (22:43)
[2020-07-14] MEDS: Flomax 0.4 MG PO SCH (22:44)
[2020-07-15 02:41] LABS: BASOPHIL % 0.1 % (0.0-0.4); Basophil (Absolute #) 0.01 (0-0.4); Eosinophil (Absolute #) 0 (0-0.5); Hematocrit 46.1 % (42-50); Hemoglobin 16.7 gm/dl (12.5-18.0); Lymphocyte (Absolute #) 0.77 (1.0-4.6); Lymphocytes % 11.2 % (24.0-44.0); Mean Cell Volume 99.6 fl (78-100); Mean Corpuscular Hemoglobin 36.1 pg (26-32); Mean Corpuscular Hgb Concent. 36.2 g/dl (32-36); Mean Platelet Volume 9.3 fl (7.5-11.0); Monocyte (Absolute #) 0.88 (0.0-1.3); Monocytes % 12.8 % (0.0-12.0); Neutrophil % 75.9 % (36.0-66.0); Platelet Count 144 K/mm3 (150-450); Red Blood Count 4.63 M/mm3 (4.1-5.6); Red Cell Distribution Width 13.8 % (11.5-14.0); White Blood Count 6.9 K/mm3 (4.0-10.5)
[2020-07-15 02:57] LABS: ALBUMIN 3.3 g/dL (3.5-5.0); BILIRUBIN,TOTAL 0.6 mg/dL (0.2-1.3); Calcium 8.7 mg/dL (8.4-10.2); Creatinine 1 1.73 mg/dL (0.66-1.25); Potassium 4.7 mmol/L (3.5-5.1); Total Protein 6.5 g/dL (6.3-8.2)
[2020-07-15] MEDS: Nitrostat 0.4 MG Tablet SL PRN ×2 (05:45→06:10)
--- NOTE | 2020-07-15 09:14 | PCM.HP ---
History of Present Illness - Chief Complaint Chief Complaint: short of breath History of Present Illness: is a 75-year-old male presents to our ED via EMS for evaluation of fever cough shortness of breath generalized myalgias and feeling of unwell. Symptoms started approximately 8 days ago. Symptoms have been progressive. Symptoms are moderate in intensity. No specific worsening or improving factors. No associated chest pain. No nausea or vomiting. No diarrhea. No rash. Patient voices no other complaints concerns at this time. Patient states he has a history of Alzheimer's and his recall is very poor. - Review of Systems Constitutional: No Fever, No Chills Eyes: No Symptoms Ears, Nose, & Throat: No Symptoms Respiratory: Short Of Breath, No Cough Cardiac: No Chest Pain, No Edema, No Syncope Abdominal/Gastrointestinal: No Abdominal Pain, No Nausea, No Vomiting, No Diarrhea Genitourinary Symptoms: No Dysuria Musculoskeletal: No Back Pain, No Neck Pain Skin: No Rash Neurological: No Dizziness, No Focal Weakness, No Sensory Changes Psychological: No Symptoms Endocrine: No Symptoms Hematologic/Lymphatic: No Symptoms Immunological/Allergic: No Symptoms Medications & Allergies Home Medications: Home Medication List Cholestyramine/Aspartame [Cholestyramine Light Packet] 4 gm PO DAILY 08/03/14 [History Confirmed 07/14/20] Gabapentin [Neurontin] 800 mg PO QID 08/03/14 [History Confirmed 07/14/20] Lorazepam 1 mg [Ativan 1 MG] 1 mg PO TID 08/03/14 [History Confirmed 07/14/20] Memantine HCl [Namenda] 10 mg PO BID 08/03/14 [History Confirmed 07/14/20] Tamsulosin HCl 0.4 mg [Flomax 0.4 MG] 0.4 mg PO HS 08/03/14 [History Confirmed 07/14/20] lamoTRIgine [Lamictal] 150 mg PO BID 08/03/14 [History Confirmed 07/14/20] Docusate Sodium 100 mg [Colace 100 MG] 100 mg PO DAILY 04/07/16 [History Confirmed 07/14/20] Cyanocobalamin (Vitamin B-12) [Vitamin B12] 2,500 mcg PO DAILY 04/27/16 [History Confirmed 07/14/20] Latanoprost [Xalatan] 1 drop OP DAILY 04/27/16 [History Confirmed 07/14/20] Nitroglycerin 0.4 mg Tablet [Nitrostat 0.4 MG Tablet] 0.4 mg SL UD PRN 04/27/16 [History Confirmed 07/14/20] Aspirin 81 mg PO DAILY 05/05/16 [History Confirmed 07/14/20] B2/Vits A,C,E/Lut/Zeaxanth/Min [Icaps Tablet] 1 each PO BID 05/05/16 [History Confirmed 07/14/20] Cholecalciferol (Vitamin D3) [Vitamin D] 400 unit PO DAILY 12/02/16 [History Confirmed 07/14/20] Dutasteride [Avodart] 0.5 mg PO DAILY 12/02/16 [History Confirmed 07/14/20] Famotidine [Pepcid] 40 mg PO DAILY 12/02/16 [History Confirmed 07/14/20] Amlodipine Besylate 5 mg [Norvasc 5 mg] 5 mg PO DAILY 03/26/20 [History Confirmed 07/14/20] Carboxymethylcell/Glycerin/Pf [Lubricant 0.5-0.9% Eye Drops] 1 drop OP DAILY PRN PRN 03/26/20 [History Confirmed 07/14/20] Diphenoxylate HCl/Atropine [Diphenoxylate-Atrop 2.5-0.025] 1 tablet PO BID PRN 03/26/20 [History Confirmed 07/14/20] Ferrous Sulfate 325 mg [Feosol 325 mg] 1 tablet PO BID 03/26/20 [History Confirmed 07/14/20] Folic Acid 1 mg [Folate 1 mg] 1 mg PO DAILY 03/26/20 [History Confirmed 07/14/20] Furosemide 40 mg [Lasix 40 MG] 40 mg PO DAILY 03/26/20 [History Confirmed 07/14/20] Magnesium Oxide 400 mg [Mag-Ox 400] 400 mg PO BID 03/26/20 [History Confirmed 07/14/20] Spironolactone 25 mg [Aldactone 25 MG] 25 mg PO DAILY 03/26/20 [History Confirmed 07/14/20] Allergies/Adverse Reactions: Allergies Allergy/AdvReac Type Severity Reaction Status Date / Time potassium [Potassium] AdvReac Intermediate Verified 07/14/20 10:36 dairy AdvReac Intermediate Diarrhea Uncoded 07/14/20 10:36 - Past Medical History Past Medical History: Yes Neurological History: Alzheimer's Disease ENT History: Cataracts, Glaucoma Cardiac History: Hypertension Respiratory History: No Pertinent History Endocrine Medical History: No Pertinent History Musculoskelatal History: Arthritis GI Medical History: Gallbladder Disease History: Renal Disease Pyscho-Social History: Anxiety Male Reproductive Disorders: Prostate Problems Comment: KIDNEY ISSUES TO SEE NEPROLOGIST NEXT MONTH - Past Surgical History Past Surgical History: Yes Neuro Surgical History: No Pertinent History Cardiac History: No Pertinent History Respiratory Surgery: No Pertinent History GI Surgical History: Hernia Repair Genitourinary Surgical Hx: No Pertinent History Musculskeletal Surgical Hx: Joint Replacement, Orthopedic Surgery Male Surgical History: Prostate Surgery Other Surgical History: dimas phaco with lens implant. prostate surgery.bilateral hip replacement,back - Social History Smoking Status: Never smoker Exposure to second hand smoke: No Alcohol: None Drug Use: none Significant Family History: no pertinent family hx - Physical Exam Vital Signs: Vital Signs - 24 hr Temp Pulse Resp BP BP Pulse Ox 07/15/20 09:00 18 07/15/20 08:00 99.1 F 88 20 150/80 94 L 07/15/20 07:52 94 L 07/15/20 06:32 20 07/15/20 06:10 88 173/79 07/15/20 05:45 90 159/92 07/15/20 05:33 20 07/15/20 05:30 99.0 F 81 20 130/89 96 07/15/20 05:00 20 07/15/20 03:53 71 20 94 L 07/15/20 03:50 20 07/15/20 03:00 20 07/15/20 02:00 88 18 95 07/15/20 00:43 20 07/14/20 23:52 98.4 F 87 18 155/99 95 07/14/20 23:00 18 07/14/20 22:00 18 07/14/20 21:54 89 18 95 07/14/20 21:00 16 07/14/20 20:00 98.4 F 94 H 16 170/93 93 L 07/14/20 19:30 93 L 07/14/20 18:56 97 H 24 92 L 07/14/20 18:37 20 07/14/20 18:00 18 91 L 07/14/20 17:17 20 07/14/20 17:00 93 L 07/14/20 16:17 18 07/14/20 16:00 95 07/14/20 15:51 75 18 94 L 07/14/20 14:48 99.1 F 93 H 12 156/92 91 L 07/14/20 14:09 99.1 F 83 24 156/92 95 07/14/20 13:05 96 07/14/20 11:39 100 H 20 153/87 94 L 07/14/20 11:00 102 H 20 167/107 96 07/14/20 10:56 96 07/14/20 10:39 100.3 F 102 H 35 H 154/88 95 Oxygen-Last 24 hours Oxygen Flowrate (L/min)-RT 2 Oxygen Flowrate (L/min)-RT 2 Oxygen Flowrate (L/min)-RT 2 Oxygen Flowrate (L/min)-RT 2 Oxygen Flowrate (L/min)-RT 2 Oxygen Flowrate (L/min)-RT 2 General Appearance: no apparent distress, alert Neurologic Exam: alert, oriented x 3, cooperative, normal mood/affect, nml cerebellar function, nml station & gait, sensation nml, No motor deficits Eye Exam: PERRL/EOMI, eyes nml inspection Ears, Nose, Throat Exam: normal ENT inspection, TMs normal, pharynx normal, moist mucous membranes Neck Exam: normal inspection, non-tender, supple, full range of motion Respiratory Exam: respiratory distress, diminished breath sounds, crackles/rales, rhonchi, wheezing Cardiovascular Exam: regular rate/rhythm, normal heart sounds, normal peripheral pulses Gastrointestinal/Abdomen Exam: soft, normal bowel sounds, No tenderness, No mass Back Exam: normal inspection, normal range of motion, No CVA tenderness, No vertebral tenderness Extremity Exam: normal inspection, normal range of motion, pelvis stable Skin Exam: normal color, warm, dry, No rash Lymphatic Exam: No adenopathy Results - Labs Lab/Micro Results: Lab Results-Last 24 Hours 07/14/20 07/14/20 07/14/20 Range/Units 11:00 11:00 11:00 WBC 8.0 (4.0-10.5) K/mm3 RBC 4.69 (4.1-5.6) M/mm3 Hgb 16.3 (12.5-18.0) gm/dl Hct 47.4 (42-50) % MCV 101.1 H (78-100) fl MCH 34.8 H (26-32) pg MCHC 34.4 (32-36) g/dl RDW 13.9 (11.5-14.0) % Plt Count 124 L (150-450) K/mm3 MPV 9.4 (7.5-11.0) fl Gran % 78.8 H (36.0-66.0) % Eos # (Auto) 0 (0-0.5) Absolute Lymphs (auto) 0.82 L (1.0-4.6) Absolute Monos (auto) 0.87 (0.0-1.3) Lymphocytes % 10.3 L (24.0-44.0) % Monocytes % 10.9 (0.0-12.0) % Eosinophils % 0.0 (0.00-5.0) % Basophils % 0.0 (0.0-0.4) % Absolute Granulocytes 6.31 (1.4-6.9) Basophils # 0 (0-0.4) D-Dimer (215-500) ng/mL Sodium 135 L (137-145) mmol/L Potassium 4.3 (3.5-5.1) mmol/L Chloride 106 (98-107) mmol/L Carbon Dioxide 22 (22-30) mmol/L Anion Gap 11.3 (5-15) MEQ/L BUN 31 H (9-20) mg/dL Creatinine 1.69 H (0.66-1.25) mg/dL Estimated GFR 42.1 ML/MIN Glucose 131 H (74-106) mg/dL Lactic Acid 1.2 (0.4-2.0) Calcium 8.7 (8.4-10.2) mg/dL Total Bilirubin 0.60 (0.2-1.3) mg/dL AST 53 (17-59) U/L ALT 26 (0-50) U/L Alkaline Phosphatase 70 (38-126) U/L Troponin I (0.000-0.034) ng/mL Serum Total Protein 7.2 (6.3-8.2) g/dL Albumin 3.7 (3.5-5.0) g/dL Urine Color (YELLOW) Urine Appearance (CLEAR) Urine pH (5-6) Ur Specific Wrights (1.005-1.025) Urine Protein (Negative) Urine Ketones (NEGATIVE) Urine Blood (0-5) Maximilian/ul Urine Nitrite (NEGATIVE) Urine Bilirubin (NEGATIVE) Urine Urobilinogen (0-1) mg/dL Ur Leukocyte Esterase (NEGATIVE) Urine WBC (Auto) (0-5) /HPF Urine RBC (Auto) (0-2) /HPF U Epithel Cells (Auto) (FEW) /HPF Urine Bacteria (Auto) (NEGATIVE) /HPF Urine Mucus (Auto) (NEGATIVE) /HPF Urine Culture Reflexed (NO) Urine Glucose (NEGATIVE) mg/dL Influenza Type A Ag (NEGATIVE) Influenza Type B Ag (NEGATIVE) SARS-CoV-2 (PCR) (NEGATIVE) 07/14/20 07/14/20 07/14/20 Range/Units 11:00 11:00 11:23 WBC (4.0-10.5) K/mm3 RBC (4.1-5.6) M/mm3 Hgb (12.5-18.0) gm/dl Hct (42-50) % MCV (78-100) fl MCH (26-32) pg MCHC (32-36) g/dl RDW (11.5-14.0) % Plt Count (150-450) K/mm3 MPV (7.5-11.0) fl Gran % (36.0-66.0) % Eos # (Auto) (0-0.5) Absolute Lymphs (auto) (1.0-4.6) Absolute Monos (auto) (0.0-1.3) Lymphocytes % (24.0-44.0) % Monocytes % (0.0-12.0) % Eosinophils % (0.00-5.0) % Basophils % (0.0-0.4) % Absolute Granulocytes (1.4-6.9) Basophils # (0-0.4) D-Dimer 1538 H* (215-500) ng/mL Sodium (137-145) mmol/L Potassium (3.5-5.1) mmol/L Chloride (98-107) mmol/L Carbon Dioxide (22-30) mmol/L Anion Gap (5-15) MEQ/L BUN (9-20) mg/dL Creatinine (0.66-1.25) mg/dL Estimated GFR ML/MIN Glucose (74-106) mg/dL Lactic Acid (0.4-2.0) Calcium (8.4-10.2) mg/dL Total Bilirubin (0.2-1.3) mg/dL AST (17-59) U/L ALT (0-50) U/L Alkaline Phosphatase (38-126) U/L Troponin I 0.024 (0.000-0.034) ng/mL Serum Total Protein (6.3-8.2) g/dL Albumin (3.5-5.0) g/dL Urine Color (YELLOW) Urine Appearance (CLEAR) Urine pH (5-6) Ur Specific Wrights (1.005-1.025) Urine Protein (Negative) Urine Ketones (NEGATIVE) Urine Blood (0-5) Maximilian/ul Urine Nitrite (NEGATIVE) Urine Bilirubin (NEGATIVE) Urine Urobilinogen (0-1) mg/dL Ur Leukocyte Esterase (NEGATIVE) Urine WBC (Auto) (0-5) /HPF Urine RBC (Auto) (0-2) /HPF U Epithel Cells (Auto) (FEW) /HPF Urine Bacteria (Auto) (NEGATIVE) /HPF Urine Mucus (Auto) (NEGATIVE) /HPF Urine Culture Reflexed (NO) Urine Glucose (NEGATIVE) mg/dL Influenza Type A Ag NEGATIVE (NEGATIVE) Influenza Type B Ag NEGATIVE (NEGATIVE) SARS-CoV-2 (PCR) (NEGATIVE) 07/14/20 07/14/20 07/14/20 Range/Units 11:35 17:35 18:37 WBC (4.0-10.5) K/mm3 RBC (4.1-5.6) M/mm3 Hgb (12.5-18.0) gm/dl Hct (42-50) % MCV (78-100) fl MCH (26-32) pg MCHC (32-36) g/dl RDW (11.5-14.0) % Plt Count (150-450) K/mm3 MPV (7.5-11.0) fl Gran % (36.0-66.0) % Eos # (Auto) (0-0.5) Absolute Lymphs (auto) (1.0-4.6) Absolute Monos (auto) (0.0-1.3) Lymphocytes % (24.0-44.0) % Monocytes % (0.0-12.0) % Eosinophils % (0.00-5.0) % Basophils % (0.0-0.4) % Absolute Granulocytes (1.4-6.9) Basophils # (0-0.4) D-Dimer (215-500) ng/mL Sodium (137-145) mmol/L Potassium (3.5-5.1) mmol/L Chloride (98-107) mmol/L Carbon Dioxide (22-30) mmol/L Anion Gap (5-15) MEQ/L BUN (9-20) mg/dL Creatinine (0.66-1.25) mg/dL Estimated GFR ML/MIN Glucose (74-106) mg/dL Lactic Acid (0.4-2.0) Calcium (8.4-10.2) mg/dL Total Bilirubin (0.2-1.3) mg/dL AST (17-59) U/L ALT (0-50) U/L Alkaline Phosphatase (38-126) U/L Troponin I 0.023 (0.000-0.034) ng/mL Serum Total Protein (6.3-8.2) g/dL Albumin (3.5-5.0) g/dL Urine Color YELLOW (YELLOW) Urine Appearance SLIGHTLY CLOUDY (CLEAR) Urine pH 5.0 (5-6) Ur Specific Wrights 1.025 (1.005-1.025) Urine Protein 100 (Negative) Urine Ketones TRACE (NEGATIVE) Urine Blood NEGATIVE (0-5) Maximilian/ul Urine Nitrite NEGATIVE (NEGATIVE) Urine Bilirubin NEGATIVE (NEGATIVE) Urine Urobilinogen NEGATIVE (0-1) mg/dL Ur Leukocyte Esterase NEGATIVE (NEGATIVE) Urine WBC (Auto) NONE (0-5) /HPF Urine RBC (Auto) NONE (0-2) /HPF U Epithel Cells (Auto) NONE (FEW) /HPF Urine Bacteria (Auto) NONE (NEGATIVE) /HPF Urine Mucus (Auto) SLIGHT (NEGATIVE) /HPF Urine Culture Reflexed NO (NO) Urine Glucose NEGATIVE (NEGATIVE) mg/dL Influenza Type A Ag (NEGATIVE) Influenza Type B Ag (NEGATIVE) SARS-CoV-2 (PCR) POSITIVE A (NEGATIVE) 07/14/20 07/14/20 07/15/20 Range/Units 20:40 23:15 02:38 WBC (4.0-10.5) K/mm3 RBC (4.1-5.6) M/mm3 Hgb (12.5-18.0) gm/dl Hct (42-50) % MCV (78-100) fl MCH (26-32) pg MCHC (32-36) g/dl RDW (11.5-14.0) % Plt Count (150-450) K/mm3 MPV (7.5-11.0) fl Gran % (36.0-66.0) % Eos # (Auto) (0-0.5) Absolute Lymphs (auto) (1.0-4.6) Absolute Monos (auto) (0.0-1.3) Lymphocytes % (24.0-44.0) % Monocytes % (0.0-12.0) % Eosinophils % (0.00-5.0) % Basophils % (0.0-0.4) % Absolute Granulocytes (1.4-6.9) Basophils # (0-0.4) D-Dimer (215-500) ng/mL Sodium (137-145) mmol/L Potassium (3.5-5.1) mmol/L Chloride (98-107) mmol/L Carbon Dioxide (22-30) mmol/L Anion Gap (5-15) MEQ/L BUN (9-20) mg/dL Creatinine (0.66-1.25) mg/dL Estimated GFR ML/MIN Glucose (74-106) mg/dL Lactic Acid (0.4-2.0) Calcium (8.4-10.2) mg/dL Total Bilirubin (0.2-1.3) mg/dL AST (17-59) U/L ALT (0-50) U/L Alkaline Phosphatase (38-126) U/L Troponin I 0.022 0.026 0.028 (0.000-0.034) ng/mL Serum Total Protein (6.3-8.2) g/dL Albumin (3.5-5.0) g/dL Urine Color (YELLOW) Urine Appearance (CLEAR) Urine pH (5-6) Ur Specific Wrights (1.005-1.025) Urine Protein (Negative) Urine Ketones (NEGATIVE) Urine Blood (0-5) Maximilian/ul Urine Nitrite (NEGATIVE) Urine Bilirubin (NEGATIVE) Urine Urobilinogen (0-1) mg/dL Ur Leukocyte Esterase (NEGATIVE) Urine WBC (Auto) (0-5) /HPF Urine RBC (Auto) (0-2) /HPF U Epithel Cells (Auto) (FEW) /HPF Urine Bacteria (Auto) (NEGATIVE) /HPF Urine Mucus (Auto) (NEGATIVE) /HPF Urine Culture Reflexed (NO) Urine Glucose (NEGATIVE) mg/dL Influenza Type A Ag (NEGATIVE) Influenza Type B Ag (NEGATIVE) SARS-CoV-2 (PCR) (NEGATIVE) 07/15/20 07/15/20 Range/Units 02:38 02:38 WBC 6.9 (4.0-10.5) K/mm3 RBC 4.63 (4.1-5.6) M/mm3 Hgb 16.7 (12.5-18.0) gm/dl Hct 46.1 (42-50) % MCV 99.6 (78-100) fl MCH 36.1 H (26-32) pg MCHC 36.2 H (32-36) g/dl RDW 13.8 (11.5-14.0) % Plt Count 144 L (150-450) K/mm3 MPV 9.3 (7.5-11.0) fl Gran % 75.9 H (36.0-66.0) % Eos # (Auto) 0 (0-0.5) Absolute Lymphs (auto) 0.77 L (1.0-4.6) Absolute Monos (auto) 0.88 (0.0-1.3) Lymphocytes % 11.2 L (24.0-44.0) % Monocytes % 12.8 H (0.0-12.0) % Eosinophils % 0.0 (0.00-5.0) % Basophils % 0.1 (0.0-0.4) % Absolute Granulocytes 5.20 (1.4-6.9) Basophils # 0.01 (0-0.4) D-Dimer (215-500) ng/mL Sodium 135 L (137-145) mmol/L Potassium 4.7 (3.5-5.1) mmol/L Chloride 105 (98-107) mmol/L Carbon Dioxide 24 (22-30) mmol/L Anion Gap 10.0 (5-15) MEQ/L BUN 40 H (9-20) mg/dL Creatinine 1.73 H (0.66-1.25) mg/dL Estimated GFR 41.0 ML/MIN Glucose 112 H (74-106) mg/dL Lactic Acid (0.4-2.0) Calcium 8.7 (8.4-10.2) mg/dL Total Bilirubin 0.60 (0.2-1.3) mg/dL AST 45 (17-59) U/L ALT 25 (0-50) U/L Alkaline Phosphatase 62 (38-126) U/L Troponin I (0.000-0.034) ng/mL Serum Total Protein 6.5 (6.3-8.2) g/dL Albumin 3.3 L (3.5-5.0) g/dL Urine Color (YELLOW) Urine Appearance (CLEAR) Urine pH (5-6) Ur Specific Wrights (1.005-1.025) Urine Protein (Negative) Urine Ketones (NEGATIVE) Urine Blood (0-5) Maximilian/ul Urine Nitrite (NEGATIVE) Urine Bilirubin (NEGATIVE) Urine Urobilinogen (0-1) mg/dL Ur Leukocyte Esterase (NEGATIVE) Urine WBC (Auto) (0-5) /HPF Urine RBC (Auto) (0-2) /HPF U Epithel Cells (Auto) (FEW) /HPF Urine Bacteria (Auto) (NEGATIVE) /HPF Urine Mucus (Auto) (NEGATIVE) /HPF Urine Culture Reflexed (NO) Urine Glucose (NEGATIVE) mg/dL Influenza Type A Ag (NEGATIVE) Influenza Type B Ag (NEGATIVE) SARS-CoV-2 (PCR) (NEGATIVE) - Radiology Impressions Radiology Exams & Impressions: Radiology Procedures Category Date Time Status CHEST 1 VIEW (PORTABLE) Stat Exams 07/14/20 10:34 Completed - Other Procedures and Tests Respiratory Therapy 07/14/20 19:15 Oxygen Nasal Cannula 2 lpm Assessment/Plan (1) COVID-19 Current Visit: Yes Status: Acute Code(s): U07.1 - COVID-19 (2) CRI (chronic renal insufficiency) Current Visit: Yes Status: Acute Code(s): N18.9 - CHRONIC KIDNEY DISEASE, UNSPECIFIED
[2020-07-15] MEDS ORDERED: NON-FORMULARY ITEM (Cyanocobalamin (Vitamin B-12) [Vitamin B12] 2,500 MCG) PO SCH (10:00)
[2020-07-15] MEDS ORDERED: NON-FORMULARY ITEM (Cholecalciferol (Vitamin D3) [Vitamin D] 400 UNIT) PO SCH (10:00)
[2020-07-15] MEDS ORDERED: NON-FORMULARY ITEM (Famotidine [Pepcid] 40 MG) PO SCH (10:00)
[2020-07-15] MEDS: VITAMIN D PO SCH (10:26)
[2020-07-15] MEDS: Vitamin B-12 500 MCG PO SCH (10:26)
[2020-07-15] MEDS: ECOTRIN 81 MG PO SCH (10:26)
[2020-07-15] MEDS: Neurontin 400 MG PO SCH ×4 (10:27→22:00)
[2020-07-15] MEDS: Aldactone 25 MG PO SCH (10:27)
[2020-07-15] MEDS: MAG-OX 400 PO SCH ×2 (10:27→22:01)
[2020-07-15] MEDS: Pepcid 20 MG PO SCH (10:27)
[2020-07-15] MEDS: Ocuvite Tablet PO SCH ×2 (10:27→22:00)
[2020-07-15] MEDS: Lasix 40 MG PO SCH (10:27)
[2020-07-15] MEDS: Colace 100 MG PO SCH (10:27)
[2020-07-15] MEDS: FEOSOL 325 MG PO SCH ×2 (10:27→22:01)
[2020-07-15] MEDS: NORVASC 5 MG PO SCH (10:27)
[2020-07-15] MEDS: Avodart 0.5 MG PO SCH (10:28)
[2020-07-15] MEDS: FOLATE 1 MG PO SCH (10:28)
[2020-07-15] MEDS: QUESTRAN Light 4 GM Packet PO SCH (10:28)
[2020-07-15] MEDS: lamICTAL 100MG TABLET PO SCH ×2 (10:28→22:00)
[2020-07-15] MEDS: ENOXAPARIN SODIUM SQ SCH ×2 (10:28→21:59)
[2020-07-15] MEDS: Namenda 5 MG PO SCH ×2 (10:28→22:01)
[2020-07-15] MEDS: Ativan 1 MG PO SCH ×3 (10:28→22:01)
[2020-07-15] MEDS ORDERED: Zofran 4 MG/2 ML VIAL IV PRN (12:27)
[2020-07-15] MEDS: TORAdol 30 mg Injection IV PRN (13:20)
[2020-07-15] MEDS ORDERED: Xalatan OP SCH (20:00)
[2020-07-15] MEDS: Flomax 0.4 MG PO SCH (22:01)
[2020-07-16] MEDS: TORAdol 30 mg Injection IV PRN (00:26)
[2020-07-16 05:53] LABS: Hemoglobin 14.6 gm/dl (12.5-18.0); Mean Cell Volume 101.8 fl (78-100); Mean Corpuscular Hgb Concent. 32.4 g/dl (32-36); Mean Platelet Volume 9.1 fl (7.5-11.0); Platelet Count 119 K/mm3 (150-450); Red Blood Count 4.42 M/mm3 (4.1-5.6); Red Cell Distribution Width 13.7 % (11.5-14.0); White Blood Count 4.1 K/mm3 (4.0-10.5)
[2020-07-16 06:22] LABS: ALBUMIN 3.2 g/dL (3.5-5.0); BILIRUBIN,TOTAL 0.6 mg/dL (0.2-1.3); Calcium 8.5 mg/dL (8.4-10.2); Creatinine 1 1.98 mg/dL (0.66-1.25); EST GLOMERULAR FILTRATION RATE 35.1 ML/MIN; Potassium 4.3 mmol/L (3.5-5.1); Total Protein 6.4 g/dL (6.3-8.2)
--- NOTE | 2020-07-16 09:14 | PCM.NOTE ---
Date and Time: 07/16/20912 Subjective Assessment: doing ok - Review of Systems Constitutional: No Fever, No Chills Eyes: No Symptoms Ears, Nose, & Throat: No Symptoms Respiratory: Short Of Breath, No Cough, No Orthopnea Cardiac: No Chest Pain, No Edema, No Syncope Abdominal/Gastrointestinal: No Abdominal Pain, No Nausea, No Vomiting, No Diarrhea Genitourinary Symptoms: No Dysuria Musculoskeletal: No Back Pain, No Neck Pain Skin: No Rash Neurological: No Dizziness, No Focal Weakness, No Sensory Changes Psychological: No Symptoms Endocrine: No Symptoms Hematologic/Lymphatic: No Symptoms Immunological/Allergic: No Symptoms Objective Exam General Appearance: no apparent distress, alert Neurologic Exam: alert, oriented x 3, cooperative, normal mood/affect, nml cerebellar function, sensation nml, No motor deficits Skin Exam: normal color, warm, dry Eye Exam: PERRL, EOMI, eyes nml inspection Ears, Nose, Throat Exam: normal ENT inspection, pharynx normal, moist mucous membranes Neck Exam: normal inspection, non-tender, supple, full range of motion Respiratory Exam: normal breath sounds, lungs clear, No respiratory distress Cardiovascular Exam: regular rate/rhythm, normal heart sounds Gastrointestinal/Abdomen Exam: soft, No tenderness, No mass Extremity Exam: normal inspection, normal range of motion Back Exam: normal inspection, normal range of motion, No CVA tenderness, No vertebral tenderness Male Genitalia Exam: deferred Rectal Exam: deferred OBJECTIVE DATA Vital Signs: Vital Signs - 24 hr Temp Pulse Resp BP Pulse Ox 07/16/20 09:00 18 07/16/20 08:00 98.6 F 82 16 178/86 97 07/16/20 06:36 18 07/16/20 06:14 77 18 163/79 96 07/16/20 06:00 23 07/16/20 05:39 72 27 H 95 07/16/20 04:21 20 07/16/20 04:00 80 20 155/76 94 L 07/16/20 03:49 18 07/16/20 03:00 21 07/16/20 02:00 77 20 96 07/16/20 01:00 18 07/16/20 00:03 98.3 F 90 18 147/93 94 L 07/16/20 00:00 18 07/15/20 23:42 90 14 92 L 07/15/20 22:37 18 07/15/20 22:00 96.8 F 70 18 164/87 96 07/15/20 21:00 18 07/15/20 20:09 93 L 07/15/20 20:00 98.2 F 70 18 153/93 91 L 07/15/20 18:36 20 07/15/20 18:00 78 18 94 L 07/15/20 17:43 18 07/15/20 16:56 24 07/15/20 16:00 97.6 F 70 22 136/68 92 L 07/15/20 14:22 16 07/15/20 14:00 88 12 94 L 07/15/20 13:54 18 07/15/20 13:00 19 07/15/20 12:00 12 07/15/20 11:30 98.5 F 85 16 155/76 94 L 07/15/20 11:00 15 07/15/20 10:50 94 L 07/15/20 10:00 13 07/15/20 09:57 85 13 94 L Oxygen-Last 24 hours Oxygen Flowrate (L/min)-RT 2 Oxygen Flowrate (L/min)-RT 2 Pain Assessment - Last Documented Pain Intensity 0 Pain Scale Used 0-10 Pain Scale Intake and Output: Intake & Output 07/13/20 07/14/20 07/15/20 07/16/20 11:59 11:59 11:59 11:59 Intake Total 820 840 Output Total 575 Balance 820 265 Weight 81.647 kg 102.4 kg Lab Results: Lab Results-Last 24 Hours 07/16/20 07/16/20 Range/Units 05:15 05:15 WBC 4.1 (4.0-10.5) K/mm3 RBC 4.42 (4.1-5.6) M/mm3 Hgb 14.6 (12.5-18.0) gm/dl Hct 45.0 (42-50) % MCV 101.8 H (78-100) fl MCH 33.0 H (26-32) pg MCHC 32.4 (32-36) g/dl RDW 13.7 (11.5-14.0) % Plt Count 119 L (150-450) K/mm3 MPV 9.1 (7.5-11.0) fl Sodium 135 L (137-145) mmol/L Potassium 4.3 (3.5-5.1) mmol/L Chloride 105 (98-107) mmol/L Carbon Dioxide 28 (22-30) mmol/L Anion Gap 7.0 (5-15) MEQ/L BUN 47 H (9-20) mg/dL Creatinine 1.98 H (0.66-1.25) mg/dL Estimated GFR 35.1 ML/MIN Glucose 90 (74-106) mg/dL Calcium 8.5 (8.4-10.2) mg/dL Total Bilirubin 0.60 (0.2-1.3) mg/dL AST 44 (17-59) U/L ALT 22 (0-50) U/L Alkaline Phosphatase 55 (38-126) U/L Serum Total Protein 6.4 (6.3-8.2) g/dL Albumin 3.2 L (3.5-5.0) g/dL Radiology Exams: Radiology Procedures Category Date Time Status CHEST 1 VIEW (PORTABLE) Stat Exams 07/14/20 10:34 Completed Assessment/Plan (1) COVID-19 Current Visit: Yes Status: Acute Assessment & Plan: Chief Complaint Diagnosis short of breath Allergies Allergy/AdvReac Type Severity Reaction Status Date / Time potassium [Potassium] AdvReac Intermediate Verified 07/14/20 10:36 dairy AdvReac Intermediate Diarrhea Uncoded 07/14/20 10:36 Vital Signs (Last 24 hours) Temp Pulse Resp BP Pulse Ox 07/16/20 09:00 18 07/16/20 08:00 98.6 F 82 16 178/86 97 07/16/20 06:36 18 07/16/20 06:14 77 18 163/79 96 07/16/20 06:00 23 07/16/20 05:39 72 27 H 95 07/16/20 04:21 20 07/16/20 04:00 80 20 155/76 94 L 07/16/20 03:49 18 07/16/20 03:00 21 07/16/20 02:00 77 20 96 07/16/20 01:00 18 07/16/20 00:03 98.3 F 90 18 147/93 94 L 07/16/20 00:00 18 07/15/20 23:42 90 14 92 L 07/15/20 22:37 18 07/15/20 22:00 96.8 F 70 18 164/87 96 07/15/20 21:00 18 07/15/20 20:09 93 L 07/15/20 20:00 98.2 F 70 18 153/93 91 L 07/15/20 18:36 20 07/15/20 18:00 78 18 94 L 07/15/20 17:43 18 07/15/20 16:56 24 07/15/20 16:00 97.6 F 70 22 136/68 92 L 07/15/20 14:22 16 07/15/20 14:00 88 12 94 L 07/15/20 13:54 18 07/15/20 13:00 19 07/15/20 12:00 12 07/15/20 11:30 98.5 F 85 16 155/76 94 L 07/15/20 11:00 15 07/15/20 10:50 94 L 07/15/20 10:00 13 07/15/20 09:57 85 13 94 L Current Medications Generic Name Dose Route Start Last Admin Trade Name Freq PRN Reason Stop Dose Admin Acetaminophen 650 mg 07/14/20 14:09 Tylenol 325 Mg PO 08/13/20 14:08 Q4H PRN PRN PAIN AND/OR FEVER Amlodipine Besylate 5 mg 07/15/20 10:00 07/15/20 10:27 Norvasc 5 Mg PO 08/14/20 09:59 5 mg DAILY WILLARD Administration Artificial Tears 0 ml 07/14/20 16:52 Artificial Tears 15 Ml OP 08/13/20 16:51 DAILY PRN PRN REDNESS/IRRITATION Aspirin 81 mg 07/15/20 10:00 07/15/20 10:26 Ecotrin 81 Mg PO 08/14/20 09:59 81 mg DAILY WILLARD Administration Cholecalciferol 500 unit 07/15/20 10:00 07/15/20 10:26 Vitamin D PO 08/14/20 09:59 500 unit DAILY WILLARD Administration Cholestyramine Resin 4 gm 07/15/20 10:00 07/15/20 10:28 Questran Light 4 Gm Packet PO 08/14/20 09:59 4 gm DAILY WILLARD Administration Cyanocobalamin 2,500 mcg 07/15/20 10:00 07/15/20 10:26 Vitamin B-12 500 Mcg PO 08/14/20 09:59 2,500 mcg DAILY WILLARD Administration Diphenoxylate HCl/Atropine 1 tablet 07/14/20 16:45 Lomotil PO 08/13/20 16:44 BID PRN PRN Docusate Sodium 100 mg 07/15/20 10:00 07/15/20 10:27 Colace 100 Mg PO 08/14/20 09:59 100 mg DAILY WILLARD Administration Dutasteride 0.5 mg 07/15/20 10:00 07/15/20 10:28 Avodart 0.5 Mg PO 08/14/20 09:59 0.5 mg DAILY WILLARD Administration Enoxaparin Sodium 80 mg 07/16/20 10:00 Enoxaparin Sodium SQ 08/15/20 09:59 BID WILLARD Famotidine 40 mg 07/15/20 10:00 07/15/20 10:27 Pepcid 20 Mg PO 08/14/20 09:59 40 mg DAILY WILLARD Administration Ferrous Sulfate 325 mg 07/14/20 22:00 07/15/20 22:01 Feosol 325 Mg PO 08/13/20 21:59 325 mg BID WILLARD Administration Folic Acid 1 mg 07/15/20 10:00 07/15/20 10:28 Folate 1 Mg PO 08/14/20 09:59 1 mg DAILY WILLARD Administration Furosemide 40 mg 07/15/20 10:00 07/15/20 10:27 Lasix 40 Mg PO 08/14/20 09:59 40 mg DAILY WILLARD Administration Gabapentin 800 mg 07/14/20 17:00 07/15/20 22:00 Neurontin 400 Mg PO 08/13/20 16:59 800 mg QID WILLARD Administration Ketorolac Tromethamine 30 mg 07/15/20 12:26 07/16/20 00:26 Toradol 30 Mg Injection IV 07/20/20 12:25 30 mg Q8H PRN PRN Administration PAIN Lamotrigine 150 mg 07/14/20 22:00 07/15/20 22:00 Lamictal 100mg Tablet PO 08/13/20 21:59 150 mg BID WILLARD Administration Latanoprost 0 ml 07/15/20 20:00 07/15/20 18:44 Xalatan OP 08/14/20 19:59 1 ml 2000 WILLARD Administration Lorazepam 1 mg 07/14/20 22:00 07/15/20 22:01 Ativan 1 Mg PO 08/13/20 21:59 1 mg TID WILLARD Administration Magnesium Oxide 400 mg 07/14/20 22:00 07/15/20 22:01 Mag-Ox 400 PO 08/13/20 21:59 400 mg BID WILLARD Administration Memantine 10 mg 07/14/20 22:00 07/15/20 22:01 Namenda 5 Mg PO 08/13/20 21:59 10 mg BID WILLARD Administration Multivitamins/Minerals 1 tab 07/14/20 22:00 07/15/20 22:00 Ocuvite Tablet PO 08/13/20 21:59 1 tab BID WILLARD Administration Nitroglycerin 0.4 mg 07/14/20 16:41 07/15/20 06:10 Nitrostat 0.4 Mg Tablet SL 08/13/20 16:40 0.4 mg UD PRN Administration CHEST PAIN Ondansetron HCl 4 mg 07/15/20 12:27 07/15/20 13:20 Zofran 4 Mg/2 Ml Vial IV 08/14/20 12:26 4 mg Q6H PRN PRN Administration NAUSEA/VOMITING Spironolactone 25 mg 07/15/20 10:00 07/15/20 10:27 Aldactone 25 Mg PO 08/14/20 09:59 25 mg DAILY WILLARD Administration Tamsulosin HCl 0.4 mg 07/14/20 22:00 07/15/20 22:01 Flomax 0.4 Mg PO 08/13/20 21:59 0.4 mg HS WILLARD Administration Discontinued Medications Generic Name Dose Route Start Last Admin Trade Name Freq PRN Reason Stop Dose Admin Dexamethasone Sodium Phosphate 8 mg 07/14/20 11:40 07/14/20 11:46 Decadron 10mg Inj. PO 07/14/20 11:41 8 mg STAT ONE Administration Dexamethasone Sodium Phosphate Confirm 07/14/20 11:44 Decadron 10mg Inj. Administered 07/14/20 11:45 Dose 10 mg .ROUTE .STK-MED ONE Enoxaparin Sodium 80 mg 07/14/20 12:48 07/14/20 12:53 Enoxaparin Sodium SQ 07/14/20 12:49 80 mg STAT ONE Administration Enoxaparin Sodium Confirm 07/14/20 12:53 Enoxaparin Sodium Administered 07/14/20 12:54 Dose 80 mg SQ .STK-MED ONE Enoxaparin Sodium 80 mg 07/14/20 22:00 07/15/20 21:59 Enoxaparin Sodium 1 mg/kg (80 mg) 08/13/20 21:59 80 mg SQ Administration Q12HT WILLARD Sodium Chloride 1,000 mls @ 50 mls/hr 07/14/20 10:45 07/14/20 10:58 Sodium Chloride 0.9% 1000 Ml IV 08/13/20 10:44 50 mls/hr .Q20H WILLARD Administration Intake & Output (Last 24 hours) 07/13/20 07/14/20 07/15/20 07/16/20 11:59 11:59 11:59 11:59 Intake Total 820 840 Output Total 575 Balance 820 265 Weight 81.647 kg 102.4 kg Microbiology Results (Last 24 hours) 07/14/20 11:00 Blood Blood Culture Gram Stain - Pending 07/14/20 11:00 Blood Blood Culture - Preliminary NO GROWTH TO DATE 07/14/20 11:00 Blood Blood Culture Gram Stain - Pending 07/14/20 11:00 Blood Blood Culture - Preliminary NO GROWTH TO DATE Laboratory Results (Last 24 hours) 07/16/20 07/16/20 05:15 05:15 WBC 4.1 RBC 4.42 Hgb 14.6 Hct 45.0 MCV 101.8 H MCH 33.0 H MCHC 32.4 RDW 13.7 Plt Count 119 L MPV 9.1 Sodium 135 L Potassium 4.3 Chloride 105 Carbon Dioxide 28 Anion Gap 7.0 BUN 47 H Creatinine 1.98 H Estimated GFR 35.1 Glucose 90 Calcium 8.5 Total Bilirubin 0.60 AST 44 ALT 22 Alkaline Phosphatase 55 Serum Total Protein 6.4 Albumin 3.2 L Orders (Last 24 hours) Category Date Time Status CBC AM.LAB Lab 07/16/20 05:15 Completed CMP [CMP] AM.LAB Lab 07/16/20 05:15 Completed Amlodipine Besylate 5 mg [Norvasc 5 mg] Med 07/15/20 10:00 Active 5 mg PO DAILY Aspirin EC 81 mg [Ecotrin 81 mg] Med 07/15/20 10:00 Active 81 mg PO DAILY Cholecalciferol (Vitamin D3) [Vitamin D] Med 07/15/20 10:00 Active 500 unit PO DAILY Cholestyramine Light 4 gm [QUESTRAN Light 4 GM Med 07/15/20 10:00 Active Packet] 4 gm PO DAILY Cyanocobalamin 500 Mcg [Vitamin B-12 500 MCG] Med 07/15/20 10:00 Active 2,500 mcg PO DAILY Docusate Sodium 100 mg [Colace 100 MG] Med 07/15/20 10:00 Active 100 mg PO DAILY Dutasteride 0.5 MG [Avodart 0.5 MG] Med 07/15/20 10:00 Active 0.5 mg PO DAILY Enoxaparin Sodium [Enoxaparin Sodium] Med 07/16/20 10:00 Active 80 mg SQ BID Famotidine 20 mg [Pepcid 20 MG] Med 07/15/20 10:00 Active 40 mg PO DAILY Folic Acid 1 mg [Folate 1 mg] Med 07/15/20 10:00 Active 1 mg PO DAILY Furosemide 40 mg [Lasix 40 MG] Med 07/15/20 10:00 Active 40 mg PO DAILY KETOROLAC trometh 30 mg Inj [TORAdol 30 mg Injection Med 07/15/20 12:26 Active ] 30 mg IV Q8H PRN PRN Latanoprost [Xalatan] Med 07/15/20 20:00 Active 0 ml OP 2000 Ondansetron HCl 4 mg/2 ml [Zofran 4 MG/2 ML VIAL] Med 07/15/20 12:27 Active 4 mg IV Q6H PRN PRN Spironolactone 25 mg [Aldactone 25 MG] Med 07/15/20 10:00 Active 25 mg PO DAILY Patient Care Notes (Last 24 hours) 07/15/20 17:33 Nursing Note by Lani Cueva Pt resting on room air, O2 sat 94%. No resp distress noted. Will continue to monitor. Initialized on 07/15/20 17:33 - END OF NOTE 07/15/20 12:20 (created 07/15/20 17:35) Nursing Note by Lani Cueva Dr. in and made rounds on pt at this time. New orders for Toradol (pain/chest pain due to cough), Zofran (Nausea), CBC/CMP in AM. Dr. Jack states that if patient continues to improve throughout the next 24 hrs, probably d/c to home tomorrow. No patient distress noted. Will continue to monitor. Initialized on 07/15/20 17:35 - END OF NOTE Code(s): U07.1 - COVID-19 (2) CRI (chronic renal insufficiency) Current Visit: Yes Status: Acute Code(s): N18.9 - CHRONIC KIDNEY DISEASE, UNSPECIFIED
[2020-07-16] MEDS ORDERED: ENOXAPARIN SODIUM SQ SCH (10:00)
[2020-07-16] MEDS: Pepcid 20 MG PO SCH (10:14)
[2020-07-16] MEDS: QUESTRAN Light 4 GM Packet PO SCH (10:14)
[2020-07-16] MEDS: Lasix 40 MG PO SCH (10:14)
[2020-07-16] MEDS: Neurontin 400 MG PO SCH ×2 (10:14→13:18)
[2020-07-16] MEDS: Aldactone 25 MG PO SCH (10:15)
[2020-07-16] MEDS: Ocuvite Tablet PO SCH (10:15)
[2020-07-16] MEDS: lamICTAL 100MG TABLET PO SCH (10:15)
[2020-07-16] MEDS: VITAMIN D PO SCH (10:15)
[2020-07-16] MEDS: Avodart 0.5 MG PO SCH (10:16)
[2020-07-16] MEDS: FEOSOL 325 MG PO SCH (10:16)
[2020-07-16] MEDS: Colace 100 MG PO SCH (10:16)
[2020-07-16] MEDS: MAG-OX 400 PO SCH (10:16)
[2020-07-16] MEDS: ECOTRIN 81 MG PO SCH (10:16)
[2020-07-16] MEDS: NORVASC 5 MG PO SCH (10:16)
[2020-07-16] MEDS: Namenda 5 MG PO SCH (10:16)
[2020-07-16] MEDS: Vitamin B-12 500 MCG PO SCH (10:17)
[2020-07-16] MEDS: FOLATE 1 MG PO SCH (10:17)
[2020-07-16 12:07] VITALS: BP 143/87; PULSE 89; O2SAT 96
[2020-07-16] MEDS: Ativan 1 MG PO SCH (13:11)
== END 2020-07-16 13:47 | disposition home or self-care (01) ==
LOC: ED 10:28 → MED SURG 13:43
PROVIDERS: ADMIT General Practice; ATTEND General Practice
DX: U07.1 COVID-19 (principal); R06.02 Shortness of breath; M79.10 Myalgia, unspecified site; Z79.899 Other long term (current) drug therapy; I12.9 Hypertensive chronic kidney disease with stage 1 through stage 4 chronic kidney disease, or unspecified chronic kidney disease; N18.9 Chronic kidney disease, unspecified; Z11.59 Encounter for screening for other viral diseases
CPT/HCPCS: 36415; 71045; 80053; 81001; 83605; 84484; 85025; 85027; 85379; 87040; 87400; 93005; 93041; 93268; 94760; 94762; 96360; 96372; 99285; G0378; U0003; J1100; J1650; J1885; J2405; A9270-GY

== ENCOUNTER 2020-07-22 08:32 | Observation (INO) | payer MEDICARE ==
[2020-07-22] MEDS ORDERED: Decadron 4 MG INJ IV ONE (08:42)
[2020-07-22] MEDS ORDERED: Sodium Chloride 0.9% 1000 ML 1,000 ML IV SCH ×2 (08:45→14:27)
[2020-07-22] MEDS ORDERED: TYLENOL 325 MG PO STA (08:51)
[2020-07-22] MEDS ORDERED: DECADRON 10MG INJ. ONE (08:54)
--- NOTE | 2020-07-22 08:58 | ERPHSYRPT ---
- History of Present Illness Time Seen by Provider: 07/22/20 08:45 Source: patient, EMS, old records Exam Limitations: clinical condition Patient Subjective Stated Complaint: Pt is covid positive and was discharged from [facility] on 07/14/20, pt continues to have problems breathing and still has a fever Triage Nursing Assessment: Pt brought to the ER via EMS, pt SOB, tachycardic, hypertensive, febrile, rates pain in RLQ as 04/06, skin N/H/D Physician History: This is a 75-year-old white male patient of Dr. Aguilar who has had symptoms of cough, shortness of air, generalized myalgias and arthralgias since 07/06/2020. Patient was seen in the emergency department here at this hospital on 07/14/2020 where he was diagnosed with positive COVID-19. He was admitted for 2 days. Since he has been home, the patient has had worsening symptoms including fever, tachycardia, hypoxia and some abdominal discomfort. Patient has a history of hypertension, gastroesophageal reflux disease, Alzheimer's dementia, anxiety issues, and renal issues. Patient denies chest pain. He continues to be short of breath. He has had no nausea vomiting or diarrhea. Timing/Duration: day(s) (Over several days), worse Cough Quality/Degree: mild Possible Cause: occasional episodes Modifying Factors: Improves With: coughing, oxygen (Improves) Associated Symptoms: muscle aches Allergies/Adverse Reactions: potassium [Potassium] Adverse Reaction (Intermediate, Verified 07/22/20 09:06) states feels hot flashes,states a presc. of it was making him itch,hot dairy Adverse Reaction (Intermediate, Uncoded 07/22/20 09:06) Diarrhea Home Medications: Cholestyramine/Aspartame [Cholestyramine Light Packet] 4 gm PO DAILY 08/03/14 [History] Gabapentin [Neurontin] 800 mg PO QID 08/03/14 [History] Lorazepam 1 mg [Ativan 1 MG] 1 mg PO TID 08/03/14 [History] Memantine HCl [Namenda] 10 mg PO BID 08/03/14 [History] Tamsulosin HCl 0.4 mg [Flomax 0.4 MG] 0.4 mg PO HS 08/03/14 [History] lamoTRIgine [Lamictal] 150 mg PO BID 08/03/14 [History] Docusate Sodium 100 mg [Colace 100 MG] 100 mg PO DAILY 04/07/16 [History] Cyanocobalamin (Vitamin B-12) [Vitamin B12] 2,500 mcg PO DAILY 04/27/16 [History] Latanoprost [Xalatan] 1 drop OP DAILY 04/27/16 [History] Nitroglycerin 0.4 mg Tablet [Nitrostat 0.4 MG Tablet] 0.4 mg SL UD PRN 04/27/16 [History] Aspirin 81 mg PO DAILY 05/05/16 [History] B2/Vits A,C,E/Lut/Zeaxanth/Min [Icaps Tablet] 1 each PO BID 05/05/16 [History] Cholecalciferol (Vitamin D3) [Vitamin D] 400 unit PO DAILY 12/02/16 [History] Dutasteride [Avodart] 0.5 mg PO DAILY 12/02/16 [History] Famotidine [Pepcid] 40 mg PO DAILY 12/02/16 [History] Amlodipine Besylate 5 mg [Norvasc 5 mg] 5 mg PO DAILY 03/26/20 [History] Carboxymethylcell/Glycerin/Pf [Lubricant 0.5-0.9% Eye Drops] 1 drop OP DAILY PRN PRN 03/26/20 [History] Diphenoxylate HCl/Atropine [Diphenoxylate-Atrop 2.5-0.025] 1 tablet PO BID PRN 03/26/20 [History] Ferrous Sulfate 325 mg [Feosol 325 mg] 1 tablet PO BID 03/26/20 [History] Folic Acid 1 mg [Folate 1 mg] 1 mg PO DAILY 03/26/20 [History] Furosemide 40 mg [Lasix 40 MG] 40 mg PO DAILY 03/26/20 [History] Magnesium Oxide 400 mg [Mag-Ox 400] 400 mg PO BID 03/26/20 [History] Spironolactone 25 mg [Aldactone 25 MG] 25 mg PO DAILY 03/26/20 [History] Hx Tetanus, Diphtheria Vaccination/Date Given: No Hx Influenza Vaccination/Date Given: Yes Hx Pneumococcal Vaccination/Date Given: Yes Travel Risk - International Travel Have you traveled outside of the country in past 3 weeks: No - Coronavirus Screening Are you exhibiting any of the following symptoms?: Yes Symptoms: Fever, Shortness of Breath, Headaches/Body Aches/Fatigue Close contact with a COVID-19 positive Pt in past 14-21 Days: No - Review of Systems Constitutional: Fever Eyes: No Symptoms Ears, Nose, & Throat: No Symptoms Respiratory: Cough, Dyspnea (Mild) Cardiac: Other (Mild tachycardia) Abdominal/Gastrointestinal: Abdominal Pain (Mild primarily right lower quadrant), Appetite Changes, No Nausea, No Vomiting, No Diarrhea Genitourinary Symptoms: No Symptoms Musculoskeletal: Arthralgias, Myalgias Skin: No Symptoms Neurological: Other (Patient has Alzheimer's dementia) Psychological: No Symptoms Endocrine: No Symptoms Hematologic/Lymphatic: No Symptoms Immunological/Allergic: No Symptoms All Other Systems: Reviewed and Negative - Past Medical History Pertinent Past Medical History: Yes Neurological History: Alzheimer's Disease ENT History: Cataracts, Glaucoma Cardiac History: Hypertension Respiratory History: No Pertinent History Endocrine Medical History: No Pertinent History Musculoskeletal History: Arthritis GI Medical History: Gallbladder Disease History: Renal Disease Psycho-Social History: Anxiety Male Reproductive Disorders: Prostate Problems Other Medical History: KIDNEY ISSUES TO SEE NEPROLOGIST NEXT MONTH - Past Surgical History Past Surgical History: Yes Neuro Surgical History: No Pertinent History Cardiac: No Pertinent History Respiratory: No Pertinent History Gastrointestinal: Hernia Repair Genitourinary: No Pertinent History Musculoskeletal: Joint Replacement, Orthopedic Surgery Male Surgical History: Prostate Surgery Other Surgical History: dimas phaco with lens implant. prostate surgery.bilateral hip replacement,back - Social History Smoking Status: Never smoker Exposure to second hand smoke: No Drug Use: none Patient Lives Alone: No Significant Family History: no pertinent family hx - Nursing Vital Signs Nursing Vital Signs: Initial Vital Signs Temperature 100.6 F 07/22/20 08:39 Pulse Rate 104 H 07/22/20 08:39 Respiratory Rate 28 H 07/22/20 08:39 O2 Sat by Pulse Oximetry 95 07/22/20 08:39 Pain Scale Pain Intensity 0 - Physical Exam General Appearance: mild distress, alert Eye Exam: PERRL/EOMI, eyes nml inspection Ears, Nose, Throat Exam: normal ENT inspection, dry mucous membranes Neck Exam: normal inspection, non-tender, supple, full range of motion Respiratory Exam: normal breath sounds, lungs clear, airway intact, No chest tenderness, No respiratory distress Cardiovascular Exam: tachycardia Gastrointestinal/Abdomen Exam: soft, normal bowel sounds, tenderness (Mild), No guarding ( diffuse), No rebound Back Exam: normal inspection, normal range of motion, No CVA tenderness, No vertebral tenderness Extremity Exam: normal inspection Neurologic Exam: alert, cooperative, laboratory mechanical technician II-XII nml as tested Skin Exam: normal color, warm, dry Lymphatic Exam: No adenopathy SpO2 Interpretation: normal SpO2: 99 O2 Delivery: Nasal Cannula Ordered Tests: Active Orders 24 hr Category Date Time Status EKG-ER Only STAT Care 07/22/20 08:39 Active IV Insertion STAT Care 07/22/20 08:39 Active Isolation, Initiate & Maintain STAT Care 07/22/20 08:39 Active CHEST 1 VIEW (PORTABLE) Stat Exams 07/22/20 08:41 Completed BLOOD CULTURE Stat Lab 07/22/20 09:10 Received CBC W DIFF Stat Lab 07/22/20 09:10 Completed CMP Stat Lab 07/22/20 09:10 Completed Ferritin Stat Lab 07/22/20 09:10 Completed INFLUENZA A+B JAH Stat Lab 07/22/20 09:10 Completed LDH-LACTATE DEHYDROGENASE Stat Lab 07/22/20 09:10 Completed Lactic Acid Stat Lab 07/22/20 09:19 Completed [place] Screen Stat Lab 07/22/20 09:10 Completed TROPONIN Q3H Lab 07/22/20 09:10 Completed TROPONIN Q3H Lab 07/22/20 11:45 Ordered TROPONIN Q3H Lab 07/22/20 14:45 Ordered TROPONIN Q3H Lab 07/22/20 17:45 Ordered TROPONIN Q3H Lab 07/22/20 20:45 Ordered UA W/RFX UR CULTURE Stat Lab 07/22/20 10:30 Completed VENOUS BLOOD GAS Stat Lab 07/22/20 09:19 Completed Transfer Order Routine Transfer 07/22/20 Ordered Medication Summary Generic Name Dose Route Start Last Admin Trade Name Freq PRN Reason Stop Dose Admin Sodium Chloride 1,000 mls @ 50 mls/hr 07/22/20 08:45 07/22/20 08:58 Sodium Chloride 0.9% 1000 Ml IV 08/21/20 08:44 50 mls/hr .Q20H WILLARD Administration Discontinued Medications Generic Name Dose Route Start Last Admin Trade Name Jhoana PRN Reason Stop Dose Admin Acetaminophen 650 mg 07/22/20 08:51 07/22/20 09:00 Tylenol 325 Mg PO 07/22/20 08:52 650 mg STAT STA Administration Acetaminophen Confirm 07/22/20 08:59 Tylenol 325 Mg Administered 07/22/20 09:00 Dose 650 mg .ROUTE .STK-MED ONE Dexamethasone Sodium Phosphate 8 mg 07/22/20 08:42 07/22/20 08:58 Decadron 4 Mg Inj IV 07/22/20 08:43 8 mg STAT ONE Administration Dexamethasone Sodium Phosphate Confirm 07/22/20 08:54 Decadron 10mg Inj. Administered 07/22/20 08:55 Dose 10 mg .ROUTE .STK-MED ONE Lab/Rad Data: Laboratory Result Diagrams 07/22/20 09:10 07/22/20 09:10 Laboratory Results 07/22/20 07/22/20 07/22/20 Range/Units 10:30 09:19 09:10 WBC (4.0-10.5) K/mm3 RBC (4.1-5.6) M/mm3 Hgb (12.5-18.0) gm/dl Hct (42-50) % MCV (78-100) fl MCH (26-32) pg MCHC (32-36) g/dl RDW (11.5-14.0) % Plt Count (150-450) K/mm3 MPV (7.5-11.0) fl Gran % (36.0-66.0) % Eos # (Auto) (0-0.5) Absolute Lymphs (auto) (1.0-4.6) Absolute Monos (auto) (0.0-1.3) Lymphocytes % (24.0-44.0) % Monocytes % (0.0-12.0) % Eosinophils % (0.00-5.0) % Basophils % (0.0-0.4) % Absolute Granulocytes (1.4-6.9) Basophils # (0-0.4) pO2/FiO2 Ratio 21.0 % VBG pH 7.43 H (7.32-7.42) VBG pCO2 at Pat Temp 41 L (42-55) mm/Hg VBG pO2 at Pat Temp 15 L (25-40) mm/Hg VBG HCO3 27.2 (22-28) meq/L VBG O2 Sat (Juliana) 30.6 L (95-100) VBG Base Excess 2.6 H (-2.0-2.0) VBG Hemoglobin 16.1 VBG Carboxyhemoglobin 2.6 (0.0-6.9) % T HGB POC Potassium 4.6 (3.5-5.1) Sodium (137-145) mmol/L Potassium (3.5-5.1) mmol/L Chloride (98-107) mmol/L Carbon Dioxide (22-30) mmol/L Anion Gap (5-15) MEQ/L BUN (9-20) mg/dL Creatinine (0.66-1.25) mg/dL Estimated GFR ML/MIN Glucose (74-106) mg/dL Lactic Acid 1.3 (0.4-2.0) Calcium (8.4-10.2) mg/dL Ferritin Total Bilirubin (0.2-1.3) mg/dL AST (17-59) U/L ALT (0-50) U/L Alkaline Phosphatase (38-126) U/L Lactate Dehydrogenase (120-246) U/L Troponin I (0.000-0.034) ng/mL Serum Total Protein (6.3-8.2) g/dL Albumin (3.5-5.0) g/dL Urine Color YELLOW (YELLOW) Urine Appearance SLIGHTLY CLOUDY (CLEAR) Urine pH 5.0 (5-6) Ur Specific Bannister 1.023 (1.005-1.025) Urine Protein 100 (Negative) Urine Ketones TRACE (NEGATIVE) Urine Blood NEGATIVE (0-5) Maximilian/ul Urine Nitrite NEGATIVE (NEGATIVE) Urine Bilirubin NEGATIVE (NEGATIVE) Urine Urobilinogen NEGATIVE (0-1) mg/dL Ur Leukocyte Esterase NEGATIVE (NEGATIVE) Urine WBC (Auto) 0-2 (0-5) /HPF Urine RBC (Auto) 0-2 (0-2) /HPF U Epithel Cells (Auto) FEW (FEW) /HPF Urine Bacteria (Auto) FEW (NEGATIVE) /HPF Urine Mucus (Auto) SLIGHT (NEGATIVE) /HPF Urine Culture Reflexed NO (NO) Urine Glucose NEGATIVE (NEGATIVE) mg/dL Monoscreen NEGATIVE (Negative) Influenza Type A Ag (NEGATIVE) Influenza Type B Ag (NEGATIVE) Group A Strep Antibody (NEGATIVE) 07/22/20 07/22/20 07/22/20 Range/Units 09:10 09:10 09:10 WBC (4.0-10.5) K/mm3 RBC (4.1-5.6) M/mm3 Hgb (12.5-18.0) gm/dl Hct (42-50) % MCV (78-100) fl MCH (26-32) pg MCHC (32-36) g/dl RDW (11.5-14.0) % Plt Count (150-450) K/mm3 MPV (7.5-11.0) fl Gran % (36.0-66.0) % Eos # (Auto) (0-0.5) Absolute Lymphs (auto) (1.0-4.6) Absolute Monos (auto) (0.0-1.3) Lymphocytes % (24.0-44.0) % Monocytes % (0.0-12.0) % Eosinophils % (0.00-5.0) % Basophils % (0.0-0.4) % Absolute Granulocytes (1.4-6.9) Basophils # (0-0.4) pO2/FiO2 Ratio % VBG pH (7.32-7.42) VBG pCO2 at Pat Temp (42-55) mm/Hg VBG pO2 at Pat Temp (25-40) mm/Hg VBG HCO3 (22-28) meq/L VBG O2 Sat (Juliana) (95-100) VBG Base Excess (-2.0-2.0) VBG Hemoglobin VBG Carboxyhemoglobin (0.0-6.9) % T HGB POC Potassium (3.5-5.1) Sodium (137-145) mmol/L Potassium (3.5-5.1) mmol/L Chloride (98-107) mmol/L Carbon Dioxide (22-30) mmol/L Anion Gap (5-15) MEQ/L BUN (9-20) mg/dL Creatinine (0.66-1.25) mg/dL Estimated GFR ML/MIN Glucose (74-106) mg/dL Lactic Acid (0.4-2.0) Calcium (8.4-10.2) mg/dL Ferritin Pending Total Bilirubin (0.2-1.3) mg/dL AST (17-59) U/L ALT (0-50) U/L Alkaline Phosphatase (38-126) U/L Lactate Dehydrogenase (120-246) U/L Troponin I (0.000-0.034) ng/mL Serum Total Protein (6.3-8.2) g/dL Albumin (3.5-5.0) g/dL Urine Color (YELLOW) Urine Appearance (CLEAR) Urine pH (5-6) Ur Specific Bannister (1.005-1.025) Urine Protein (Negative) Urine Ketones (NEGATIVE) Urine Blood (0-5) Maximilian/ul Urine Nitrite (NEGATIVE) Urine Bilirubin (NEGATIVE) Urine Urobilinogen (0-1) mg/dL Ur Leukocyte Esterase (NEGATIVE) Urine WBC (Auto) (0-5) /HPF Urine RBC (Auto) (0-2) /HPF U Epithel Cells (Auto) (FEW) /HPF Urine Bacteria (Auto) (NEGATIVE) /HPF Urine Mucus (Auto) (NEGATIVE) /HPF Urine Culture Reflexed (NO) Urine Glucose (NEGATIVE) mg/dL Monoscreen (Negative) Influenza Type A Ag POSITIVE (NEGATIVE) Influenza Type B Ag NEGATIVE (NEGATIVE) Group A Strep Antibody NOT DETECTED (NEGATIVE) 07/22/20 07/22/20 07/22/20 Range/Units 09:10 09:10 09:10 WBC 5.5 (4.0-10.5) K/mm3 RBC 4.76 (4.1-5.6) M/mm3 Hgb 15.9 (12.5-18.0) gm/dl Hct 47.9 (42-50) % MCV 100.6 H (78-100) fl MCH 33.4 H (26-32) pg MCHC 33.2 (32-36) g/dl RDW 13.7 (11.5-14.0) % Plt Count 178 (150-450) K/mm3 MPV 9.4 (7.5-11.0) fl Gran % 73.8 H (36.0-66.0) % Eos # (Auto) 0.01 (0-0.5) Absolute Lymphs (auto) 0.76 L (1.0-4.6) Absolute Monos (auto) 0.65 (0.0-1.3) Lymphocytes % 13.9 L (24.0-44.0) % Monocytes % 11.9 (0.0-12.0) % Eosinophils % 0.2 (0.00-5.0) % Basophils % 0.2 (0.0-0.4) % Absolute Granulocytes 4.03 (1.4-6.9) Basophils # 0.01 (0-0.4) pO2/FiO2 Ratio % VBG pH (7.32-7.42) VBG pCO2 at Pat Temp (42-55) mm/Hg VBG pO2 at Pat Temp (25-40) mm/Hg VBG HCO3 (22-28) meq/L VBG O2 Sat (Juliana) (95-100) VBG Base Excess (-2.0-2.0) VBG Hemoglobin VBG Carboxyhemoglobin (0.0-6.9) % T HGB POC Potassium (3.5-5.1) Sodium 136 L (137-145) mmol/L Potassium 4.9 (3.5-5.1) mmol/L Chloride 104 (98-107) mmol/L Carbon Dioxide 24 (22-30) mmol/L Anion Gap 11.8 (5-15) MEQ/L BUN 25 H (9-20) mg/dL Creatinine 1.65 H (0.66-1.25) mg/dL Estimated GFR 43.3 ML/MIN Glucose 131 H (74-106) mg/dL Lactic Acid (0.4-2.0) Calcium 8.4 (8.4-10.2) mg/dL Ferritin Total Bilirubin 0.90 (0.2-1.3) mg/dL AST 66 H (17-59) U/L ALT 52 H (0-50) U/L Alkaline Phosphatase 67 (38-126) U/L Lactate Dehydrogenase 305 H (120-246) U/L Troponin I 0.023 (0.000-0.034) ng/mL Serum Total Protein 6.6 (6.3-8.2) g/dL Albumin 3.4 L (3.5-5.0) g/dL Urine Color (YELLOW) Urine Appearance (CLEAR) Urine pH (5-6) Ur Specific Bannister (1.005-1.025) Urine Protein (Negative) Urine Ketones (NEGATIVE) Urine Blood (0-5) Maximilian/ul Urine Nitrite (NEGATIVE) Urine Bilirubin (NEGATIVE) Urine Urobilinogen (0-1) mg/dL Ur Leukocyte Esterase (NEGATIVE) Urine WBC (Auto) (0-5) /HPF Urine RBC (Auto) (0-2) /HPF U Epithel Cells (Auto) (FEW) /HPF Urine Bacteria (Auto) (NEGATIVE) /HPF Urine Mucus (Auto) (NEGATIVE) /HPF Urine Culture Reflexed (NO) Urine Glucose (NEGATIVE) mg/dL Monoscreen (Negative) Influenza Type A Ag (NEGATIVE) Influenza Type B Ag (NEGATIVE) Group A Strep Antibody (NEGATIVE) - Progress Progress: improved, re-examined Air Movement: fair Progress Note: 07/22/20 10:57 Chest x-ray shows no acute new or acute findings. Medical decision making: This patient has fever, tachycardia and generalized myalgias and arthralgias. He is not feeling any better after his diagnosis of COVID-19. He is now newly diagnosed with influenza A. He was mildly hypoxic as well. We will bring him into the hospital, begin remdesivir, continue dexamethasone and IV fluid. We will treat his fever. I spoke with Dr. Manzanares who accepts the patient for admission into the COVID-19 unit. Blood Culture(s) Obtained: Yes Antibiotics given: No Counseled pt/family regarding: lab results, diagnosis, rad results - Departure Departure Disposition: In-patient Admission Clinical Impression: COVID-19 virus infection, Influenza A H1N1 infection, Fever, Hypoxia Condition: Fair Critical Care Time: Yes Critical Care Time(excluding separately billable procedures): Critical 30-74 mins Referrals: TOM AGUILAR MD [Primary Care Provider] -
[2020-07-22] MEDS ORDERED: TYLENOL 325 MG ONE (08:59)
--- NOTE | 2020-07-22 09:18 | XRAY ---
Indication: Short of breath. Positive Covid 19. Comparison: July 14, 2020. Portable chest unchanged again demonstrating minimal bibasilar discoid atelectasis/scarring and right hemidiaphragm elevation. Remaining heart and lungs unremarkable. No new/acute findings.
[2020-07-22 09:23] LABS: Lactic Acid 1.3 (0.4-2.0); VBG BASE EXCESS 2.6 (-2.0-2.0); VBG CARBOXYHEMOGLOBIN 2.6 % T HGB (0.0-6.9); VBG HCO3- 27.2 meq/L (22-28); VBG HEMOGLOBIN 16.1; VBG O2 SATURATION 30.6 (95-100); VBG POTASSIUM 4.6 (3.5-5.1); VBG pH 7.43 (7.32-7.42)
[2020-07-22 09:27] LABS: Absolute Neutrophil Ct (ANC) 4.03 (1.4-6.9); BASOPHIL % 0.2 % (0.0-0.4); Basophil (Absolute #) 0.01 (0-0.4); Eosinophil % 0.2 % (0.00-5.0); Eosinophil (Absolute #) 0.01 (0-0.5); Hematocrit 47.9 % (42-50); Hemoglobin 15.9 gm/dl (12.5-18.0); Lymphocyte (Absolute #) 0.76 (1.0-4.6); Lymphocytes % 13.9 % (24.0-44.0); Mean Cell Volume 100.6 fl (78-100); Mean Corpuscular Hemoglobin 33.4 pg (26-32); Mean Corpuscular Hgb Concent. 33.2 g/dl (32-36); Mean Platelet Volume 9.4 fl (7.5-11.0); Monocyte (Absolute #) 0.65 (0.0-1.3); Monocytes % 11.9 % (0.0-12.0); Neutrophil % 73.8 % (36.0-66.0); Platelet Count 178 K/mm3 (150-450); Red Blood Count 4.76 M/mm3 (4.1-5.6); Red Cell Distribution Width 13.7 % (11.5-14.0); White Blood Count 5.5 K/mm3 (4.0-10.5)
[2020-07-22 09:42] LABS: ALBUMIN 3.4 g/dL (3.5-5.0); ANION GAP 11.8 MEQ/L (5-15); BILIRUBIN,TOTAL 0.9 mg/dL (0.2-1.3); Calcium 8.4 mg/dL (8.4-10.2); Creatinine 1 1.65 mg/dL (0.66-1.25); EST GLOMERULAR FILTRATION RATE 43.3 ML/MIN; Potassium 4.9 mmol/L (3.5-5.1); Total Protein 6.6 g/dL (6.3-8.2)
[2020-07-22 10:11] LABS: INFLUENZA A POSITIVE (NEGATIVE); INFLUENZA B NEGATIVE (NEGATIVE)
[2020-07-22 10:38] LABS: Appearance SLIGHTLY CLOUDY (CLEAR); Bilirubin NEGATIVE (NEGATIVE); Blood NEGATIVE Ery/ul (0-5); Glucose NEGATIVE (NEGATIVE); Ketones TRACE (NEGATIVE); Leukocyte Esterase NEGATIVE (NEGATIVE); Mucus SLIGHT /HPF (NEGATIVE); Nitrite NEGATIVE (NEGATIVE); Protein,Urine Dip 100 (Negative); Specific Gravity 1.023 (1.005-1.025); Urobilinogen NEGATIVE mg/dL (0-1)
[2020-07-22 10:48] LABS: Epithelial Cells FEW /HPF (FEW); RBC 0-2 /HPF (0-2); WBC 0-2 /HPF (0-5)
[2020-07-22 10:49] LABS: Bacteria FEW /HPF (NEGATIVE)
[2020-07-22] MEDS ORDERED: TYLENOL 325 MG PO PRN (14:27)
[2020-07-22] MEDS ORDERED: REMDESIVIR 200 MG in Sodium Chloride 0.9% 250 ML 250 ML IV ONE (14:27)
[2020-07-22] MEDS ORDERED: [UNRECOGNIZED DRUG - OTHER] OP PRN (17:29)
[2020-07-22] MEDS ORDERED: GLYCERIN OP PRN (17:29)
[2020-07-22] MEDS ORDERED: CARBOXYMETHYLCELLULOSE OP PRN (17:29)
[2020-07-22] MEDS ORDERED: Nitrostat 0.4 MG Tablet SL PRN (17:29)
[2020-07-22] MEDS ORDERED: Lomotil PO PRN (17:30)
[2020-07-22] MEDS ORDERED: Artificial Tears 15 ML OP PRN (17:48)
[2020-07-22] MEDS ORDERED: Flomax 0.4 MG PO SCH (22:00)
[2020-07-22] MEDS ORDERED: LAMOTRIGINE 150 MG PO SCH (22:00)
[2020-07-22] MEDS ORDERED: Decadron 4 MG INJ IV SCH (22:00)
[2020-07-22] MEDS ORDERED: NON-FORMULARY ITEM (B2/Vits A,C,E/Lut/Zeaxanth/Min [Icaps Tablet] 1 EACH) PO SCH (22:00)
[2020-07-22] MEDS ORDERED: NEURONTIN 300 MG PO SCH (22:00)
[2020-07-22] MEDS ORDERED: NON-FORMULARY ITEM (Memantine Hcl [Namenda] 10 MG) PO SCH (22:00)
[2020-07-22] MEDS: FEOSOL 325 MG PO SCH (22:14)
[2020-07-22] MEDS: Ativan 1 MG PO SCH (22:14)
[2020-07-22] MEDS: Decadron 4 MG INJ IV SCH (22:14)
[2020-07-22] MEDS: MAG-OX 400 PO SCH (22:16)
[2020-07-22] MEDS: Namenda 5 MG PO SCH (22:16)
[2020-07-22] MEDS: lamICTAL 100MG TABLET PO SCH (22:16)
[2020-07-22] MEDS: Neurontin 400 MG PO SCH (22:17)
[2020-07-22] MEDS: Ocuvite Tablet PO SCH (22:18)
[2020-07-23] MEDS ORDERED: BABY ASPIRIN 81 MG CHEW PO ONE (00:38)
[2020-07-23 06:47] LABS: Hematocrit 43.3 % (42-50); Hemoglobin 14.6 gm/dl (12.5-18.0); Mean Cell Volume 100.5 fl (78-100); Mean Corpuscular Hemoglobin 33.9 pg (26-32); Mean Corpuscular Hgb Concent. 33.7 g/dl (32-36); Mean Platelet Volume 9.6 fl (7.5-11.0); Platelet Count 173 K/mm3 (150-450); Red Blood Count 4.31 M/mm3 (4.1-5.6); Red Cell Distribution Width 13.3 % (11.5-14.0); White Blood Count 5.5 K/mm3 (4.0-10.5)
[2020-07-23 07:13] LABS: ALBUMIN 2.8 g/dL (3.5-5.0); ANION GAP 9.7 MEQ/L (5-15); BILIRUBIN,TOTAL 0.6 mg/dL (0.2-1.3); Calcium 7.7 mg/dL (8.4-10.2); Creatinine 1 1.27 mg/dL (0.66-1.25); EST GLOMERULAR FILTRATION RATE 58.6 ML/MIN; Potassium 4.8 mmol/L (3.5-5.1); Total Protein 5.6 g/dL (6.3-8.2)
[2020-07-23 07:18] LABS: Lymphocytes 11 % (24-44); Monocyte 5 % (0.0-12.0); Neutrophils 84 % (36.-66.); Total Cells Counted 100
[2020-07-23 07:19] LABS: Platelet Estimate NORMAL (NORMAL); Poikilocytosis 1+
[2020-07-23 07:49] VITALS: O2SAT 96
[2020-07-23] MEDS ORDERED: NON-FORMULARY ITEM (Cyanocobalamin (Vitamin B-12) [Vitamin B12] 2,500 MCG) PO SCH (10:00)
[2020-07-23] MEDS ORDERED: Xalatan OP SCH (10:00)
[2020-07-23] MEDS ORDERED: NON-FORMULARY ITEM (Famotidine [Pepcid] 40 MG) PO SCH (10:00)
[2020-07-23] MEDS ORDERED: ENOXAPARIN SODIUM SQ SCH (10:00)
[2020-07-23] MEDS ORDERED: NON-FORMULARY ITEM (Cholecalciferol (Vitamin D3) [Vitamin D] 400 UNIT) PO SCH (10:00)
[2020-07-23] MEDS: Vitamin B-12 500 MCG PO SCH ×2 (10:56→13:08)
[2020-07-23] MEDS: VITAMIN D PO SCH ×2 (10:56→13:08)
[2020-07-23] MEDS: Ocuvite Tablet PO SCH ×2 (10:59→13:08)
[2020-07-23] MEDS: Avodart 0.5 MG PO SCH ×2 (10:59→13:07)
[2020-07-23] MEDS: Aldactone 25 MG PO SCH ×2 (10:59→13:04)
[2020-07-23] MEDS: Pepcid 20 MG PO SCH ×2 (10:59→13:08)
[2020-07-23] MEDS: Ativan 1 MG PO SCH ×2 (10:59→13:06)
[2020-07-23] MEDS: Decadron 4 MG INJ IV SCH (10:59)
[2020-07-23] MEDS: NORVASC 5 MG PO SCH ×2 (11:00→13:08)
[2020-07-23] MEDS: MAG-OX 400 PO SCH ×2 (11:00→13:07)
[2020-07-23] MEDS: lamICTAL 100MG TABLET PO SCH ×2 (11:01→13:07)
[2020-07-23] MEDS: Lasix 40 MG PO SCH ×2 (11:01→13:07)
[2020-07-23] MEDS: Namenda 5 MG PO SCH ×2 (11:02→13:08)
[2020-07-23] MEDS: FEOSOL 325 MG PO SCH ×2 (11:02→13:07)
[2020-07-23] MEDS: ECOTRIN 81 MG PO SCH ×2 (11:02→13:07)
[2020-07-23] MEDS: FOLATE 1 MG PO SCH ×2 (11:22→13:07)
[2020-07-23] MEDS: Neurontin 400 MG PO SCH ×2 (11:22→16:13)
[2020-07-23 12:32] VITALS: BP 159/86
[2020-07-23] MEDS ORDERED: REMDESIVIR 100 MG in Sodium Chloride 0.9% 100 ML IVPB 100 ML IV SCH (14:00)
[2020-07-23 14:34] VITALS: PULSE 68
--- NOTE | 2020-07-23 20:31 | XRAY ---
Indication: Short of breath. Positive Covid 19. Multiple contiguous axial images obtained through the chest using 80 cc Isovue 370 contrast and PE protocol. Comparison: None There is satisfactory opacification of the pulmonary arteries. However diffuse respiration artifact limits evaluation of the more lobar and segmental branches. No central pulmonary embolus. Heart is not enlarged. Aorta is mildly atherosclerotic without aneurysm/dissection. Small left hilar calcified nodes. No pathologic mediastinal lymphadenopathy. Lungs demonstrates minimal bilateral upper lobe airspace disease and tiny right effusion. Also right middle and bilateral lower lobe subsegmental atelectasis. No suspicious pulmonary mass/nodule. Bony thorax intact with mild degenerative changes throughout the spine. There is right hemidiaphragm elevation. Limited upper abdomen demonstrates splenic calcified granulomas, 2 mm right renal calculus, and cholecystectomy clips. Impression: 1. Pulmonary embolus evaluation limited due to respiration artifact. No central pulmonary embolus. 2. Minimal bilateral upper lobe airspace disease and tiny right effusion. 3. Incidental right hemidiaphragm elevation, bilateral mid-lower lung subsegmental atelectasis, nonobstructing right renal calculus, chronic bony findings, and old granulomatous disease. Comment: Preliminary interpretation was made by [facility]. No critical discrepancy.
--- NOTE | 2020-07-24 08:46 | HP ---
CHIEF COMPLAINT: Cough, short of breath, fever, chills. HISTORY OF PRESENT ILLNESS: 75 year-old WM who was treated for COVID-19 7 days ago. Had improved and went home to his apartment with his . The last day, he started coughing more, running fever, chills, and feeling bad. He has Alzheimer's dementia by history so the history from him is a little guarded, but not bad. He is coughing as I examine him. He denies any chest pain, heart disease. No abdomen pain, but he has decreased appetite. No severe joint pain or muscle pain. He says he has some problems with his kidneys, I am not for sure what, and hypertension. HOME MEDICATIONS: Cholestyramine 4 gm q d, Neurontin 800 qid, lorazepam 1 mg tid, Namenda 10 bid, tamsulosin 0.4 HS, Lamictal 150 bid, Colace 100 q d, B12 q d 2500 units daily, Xalatan eye drops, nitro PRN, aspirin 81 q d, multiple vitamin B and zinc tablets, vitamin D3, Avodart, Pepcid, amlodipine 5 q d, iron 1 q d, folic acid 1 mg q d, Lasix 40 q d, magnesium 400 bid, and spironolactone 25 q d. Has had an influenza vaccine, but there is no date. Has had a pneumococcal vaccine. ALLERGIES: POTASSIUM MADE HIM FEEL HOT, I AM NOT FOR SURE WHERE THAT CAME FROM, AND POSSIBLY DIARRHEA. SOCIAL HISTORY: Lives with his at [place] apartments. He has not traveled outside the country. He doesn't know of anyone he was exposed to with influenza or COVID-19. MEDICAL PROBLEMS: Dementia, history of COVID-19. Presently has influenza. Presently has some mild abdominal pain and no appetite. Has benign prostatic hypertrophy, cataracts, history of bilateral hip replacement, prostate surgery, some iron deficiency, although he has 15 Hgb. His B12 is low. He is taking B12 replacement. Will get a level. REVIEW OF SYSTEMS: HEENT: CHEST: CVS: ABDOMEN: EXTREMITIES: PHYSICAL EXAMINATION: The patient is a very pleasant man in no distress. He holds a nice conversation, but opens with he is ready to go home. Doesn't remember why he got here. Doesn't know the date. Doesn't realize that I am the physician at first which is okay. VITAL SIGNS: Temperature 98, BP 150/70. It had been 100.6 plus 104. Respiratory rate 28, O2 saturation 95%. Pain intensity is 0. HEENT: NECK: CHEST: CVS: ABDOMEN: EXTREMITIES: IMPRESSION/PLAN: 1. PATIENT HAS INFLUENZA A AFTER RECOVERING FROM COVID-19. HIS CHEST XRAY IS NO CHANGE FROM A WEEK AGO, SO IT IS MINIMAL INFILTRATE, PROBABLY SCARRING. At this time, maybe some Decadron would help. Give him 4 mg q 12 for residual cough he has probably from the COVID-19. Observe him for 24 hours and perhaps be stable as he is not really super hypoxic now and return back to the care of his family for Thanksgiving.
== END 2020-07-23 14:35 | disposition home or self-care (01) ==
LOC: ED 08:32 → INTOOBSV 13:46 → MED SURG 13:46
PROVIDERS: ADMIT Family Medicine; ATTEND Family Medicine
DX: J10.1 Influenza due to other identified influenza virus with other respiratory manifestations (principal); U07.1 COVID-19; R51.9 Headache, unspecified; I10 Essential (primary) hypertension; K21.9 Gastro-esophageal reflux disease without esophagitis; G30.9 Alzheimer's disease, unspecified; F02.80 Dementia in other diseases classified elsewhere, unspecified severity, without behavioral disturbance, psychotic disturbance, mood disturbance, and anxiety; F41.9 Anxiety disorder, unspecified; Z79.899 Other long term (current) drug therapy
CPT/HCPCS: 36415; 71045; 71260; 80053; 81001; 82607; 82728; 82805; 83605; 83615; 84484; 85025; 85379; 86308; 87040; 87400; 87651; 93005; 93268; 94762; 96374; 99285; 99291; G0378; 87077; J1100; J1650; A9270-GY

== ENCOUNTER 2024-03-05 14:27 | Observation (INO) | payer MEDICARE ==
[2024-03-05 15:06] LABS: Absolute Neutrophil Ct (ANC) 6.67 x10^3/uL (1.78-5.38); BASOPHIL % 0.3 % (0.2-1.2); Basophil (Absolute #) 0.03 x10^3/uL (0.01-0.08); Eosinophil % 3.4 % (0.8-7.0); Eosinophil (Absolute #) 0.29 x10^3/uL (0.04-0.54); Hematocrit 40.5 % (40.1-51.0); Hemoglobin 13.7 g/dL (13.7-17.5); IMMATURE GRAN # 0.02 x10^3u/L (0.001-0.031); IMMATURE GRAN % 0.2 % (0.001-0.429); Lymphocyte (Absolute #) 1.06 x10^3/uL (1.32-3.57); Lymphocytes % 12.3 % (21.8-53.1); Mean Cell Volume 97.4 fL (79.0-92.2); Mean Corpuscular Hemoglobin 32.9 pg (25.7-32.2); Mean Corpuscular Hgb Concent. 33.8 g/dL (32.3-36.5); Mean Platelet Volume 8.9 fL (9.4-12.4); Monocyte (Absolute #) 0.54 x10^3/uL (0.30-0.82); Monocytes % 6.3 % (5.3-12.2); Neutrophil % 77.5 % (34.0-67.9); Platelet Count 224 x10^3/uL (163-337); Red Blood Count 4.16 x10^6/uL (4.63-6.08); Red Cell Distribution Width 12.9 % (11.6-14.4); White Blood Count 8.6 x10^3/uL (4.23-9.07)
--- NOTE | 2024-03-05 15:21 | XRAY ---
Indication: Stroke. Multiple contiguous axial images obtained through the head without contrast. Comparison: August 03, 2014 Again age-appropriate global atrophy and anatomic variant for cavum septum pellucidum. No acute intracranial hemorrhage, abnormal extra-axial fluid collection, or mass effect. Fourth ventricle is midline without hydrocephalus. Pacheco-white matter differentiation preserved. Bony calvarium intact. Visualized paranasal sinuses and mastoid air cells are clear. Impression: Continued negative CT head without contrast exam.
[2024-03-05 15:23] LABS: ANION GAP 11.3 MEQ/L (5-15); BILIRUBIN,TOTAL 0.8 mg/dL (0.2-1.3); Creatinine 1 1.43 mg/dL (0.66-1.25); EST GLOMERULAR FILTRATION RATE 49.8 ML/MIN; Total Protein 7.7 g/dL (6.3-8.2)
[2024-03-05 15:24] LABS: Potassium 4.5 mmol/L (3.5-5.1)
[2024-03-05] MEDS ORDERED: Sodium Chloride 0.9% 1000 ML 1,000 ML ONE (15:28)
[2024-03-05] MEDS: Sodium Chloride 0.9% 1000 ML 1,000 ML IV SCH (15:34)
[2024-03-05 18:24] LABS: Appearance Clear (Clear); Bacteria None Seen /HPF (None Seen); Bilirubin Negative (Negative); Blood Negative (Negative); Epithelial Cells None Seen /HPF (None Seen); Glucose, Urine Negative (Negative); Hyaline Casts NONE SEEN /LPF (0-2); Ketones Trace (Negative); Leukocyte Esterase Negative (Negative); Nitrite Negative (Negative); Protein,Urine Dip Trace (Negative); RBC 0-2 /HPF (0-5); Urobilinogen 0.2 mg/dL (0.2); WBC 0-2 /HPF (0-5)
[2024-03-05 18:27] LABS: ADD URINE CULTURE? NO (NO)
--- NOTE | 2024-03-05 18:33 | ERPHSYRPT ---
- History of Present Illness Time Seen by Provider: 03/05/24 14:35 Source: patient Exam Limitations: no limitations Patient Subjective Stated Complaint: PT states "I have been getting weak and weak for the past week. I am usually in a whel chair." Triage Nursing Assessment: Pt presented alert and oriented X 3, skin pwd. Pt has generalized weakness. pt in no apparent respiratory distress. Physician History: 78-year-old male presents to our ED via EMS for evaluation of progressive generalized weakness and recurrent falls. Patient has had 3 falls in the past week. Patient reports that he keeps losing his balance towards his right side. On observation patient is leaning towards his right side. Patient slurring his words on exam. No trauma no fever. No nausea vomiting or diaphoresis. Symptoms are mild to moderate in intensity. No specific worsening or improving factors. Patient otherwise feels well. He voices no other complaints or concerns at this time. Portions of this note were created with voice recognition technology. There may be grammatical, spelling, punctuation or sound alike errors Timing/Duration: week(s) (1 week) Severity: moderate Modifying Factors: Improves With: nothing Associated Symptoms: denies symptoms, other (Generalized weakness) Allergies/Adverse Reactions: potassium [Potassium] Adverse Reaction (Intermediate, Verified 07/22/20 09:06) states feels hot flashes,states a presc. of it was making him itch,hot Home Medications: Gabapentin [Neurontin] 800 mg PO QID 08/03/14 [History] Lorazepam 1 mg [Ativan 1 MG] 1 mg PO TID 08/03/14 [History] Memantine HCl [Namenda] 10 mg PO BID 08/03/14 [History] Tamsulosin HCl 0.4 mg [Flomax 0.4 MG] 0.4 mg PO HS 08/03/14 [History] lamoTRIgine [Lamictal] 150 mg PO BID 08/03/14 [History] Cyanocobalamin (Vitamin B-12) [Vitamin B12] 2,500 mcg PO DAILY 04/27/16 [History] Latanoprost [Xalatan] 1 drop OP DAILY 04/27/16 [History] Nitroglycerin 0.4 mg Tablet [Nitrostat 0.4 MG Tablet] 0.4 mg SL UD PRN 04/27/16 [History] Aspirin 81 mg PO DAILY 05/05/16 [History] B2/Vits A,C,E/Lut/Zeaxanth/Min [Icaps Tablet] 1 each PO BID 05/05/16 [History] Cholecalciferol (Vitamin D3) [Vitamin D] 400 unit PO DAILY 12/02/16 [History] Dutasteride [Avodart] 0.5 mg PO DAILY 12/02/16 [History] Famotidine [Pepcid] 40 mg PO DAILY 12/02/16 [History] Amlodipine Besylate 5 mg [Norvasc 5 mg] 5 mg PO DAILY 03/26/20 [History] Carboxymethylcell/Glycerin/Pf [Lubricant 0.5-0.9% Eye Drops] 1 drop OP DAILY PRN PRN 03/26/20 [History] Diphenoxylate HCl/Atropine [Diphenoxylate-Atrop 2.5-0.025] 1 tablet PO BID PRN 03/26/20 [History] Ferrous Sulfate 325 mg [Feosol 325 mg] 1 tablet PO BID 03/26/20 [History] Folic Acid 1 mg [Folate 1 mg] 1 mg PO DAILY 03/26/20 [History] Furosemide 40 mg [Lasix 40 MG] 40 mg PO DAILY 03/26/20 [History] Magnesium Oxide 400 mg [Mag-Ox 400] 400 mg PO BID 03/26/20 [History] Spironolactone 25 mg [Aldactone 25 MG] 25 mg PO DAILY 03/26/20 [History] Hx Tetanus, Diphtheria Vaccination/Date Given: No Hx Influenza Vaccination/Date Given: Yes Hx Pneumococcal Vaccination/Date Given: Yes Immunizations Up to Date: No Travel Risk - International Travel Have you traveled outside of the country in past 3 weeks: No - Emerging Infectious Disease Are you exhibiting symptoms associated with any current EIDs: No - Review of Systems Constitutional: No Symptoms, No Fever, No Chills Eyes: No Symptoms Ears, Nose, & Throat: No Symptoms Respiratory: No Symptoms, No Cough, No Dyspnea Cardiac: No Symptoms, No Chest Pain, No Edema, No Syncope Abdominal/Gastrointestinal: No Symptoms, No Abdominal Pain, No Nausea, No Vomiting, No Diarrhea Genitourinary Symptoms: No Symptoms, No Dysuria Musculoskeletal: No Symptoms, No Back Pain, No Neck Pain Skin: No Symptoms, No Rash Neurological: No Symptoms, No Dizziness, No Focal Weakness, No Sensory Changes Psychological: No Symptoms Endocrine: No Symptoms Hematologic/Lymphatic: No Symptoms Immunological/Allergic: No Symptoms All Other Systems: Reviewed and Negative - Past Medical History Pertinent Past Medical History: Yes Neurological History: Alzheimer's Disease ENT History: Cataracts, Glaucoma Cardiac History: Hypertension Respiratory History: No Pertinent History Endocrine Medical History: No Pertinent History Musculoskeletal History: Arthritis GI Medical History: Gallbladder Disease History: Renal Disease Psycho-Social History: Anxiety Male Reproductive Disorders: Prostate Problems Other Medical History: Kidney sclerosis - Past Surgical History Past Surgical History: Yes Neuro Surgical History: No Pertinent History Cardiac: No Pertinent History Respiratory: No Pertinent History Gastrointestinal: Hernia Repair Genitourinary: No Pertinent History Musculoskeletal: Joint Replacement, Orthopedic Surgery Male Surgical History: Prostate Surgery Other Surgical History: dimas phaco with lens implant. prostate surgery.bilateral hip replacement,back Significant Family History: no pertinent family hx - Social History Smoking Status: Never smoker Exposure to second hand smoke: No Drug Use: none Patient Lives Alone: No - Social Determinants of Health Will the patient participate in the screening: Declined to provide - Nursing Vital Signs Nursing Vital Signs: Initial Vital Signs Blood Pressure 172/92 03/05/24 14:30 Pain Scale Pain Intensity 0 - Physical Exam General Appearance: no apparent distress, alert, other (Patient is leaning towards his right side. Patient appears to be slurring his speech) Eye Exam: PERRL/EOMI, eyes nml inspection Ears, Nose, Throat Exam: normal ENT inspection, TMs normal, pharynx normal, moist mucous membranes Neck Exam: normal inspection, non-tender, supple, full range of motion Respiratory Exam: normal breath sounds, lungs clear, No respiratory distress Cardiovascular Exam: regular rate/rhythm, normal heart sounds, normal peripheral pulses Gastrointestinal/Abdomen Exam: soft, normal bowel sounds, No tenderness, No mass Back Exam: normal inspection, normal range of motion, No CVA tenderness, No vertebral tenderness Extremity Exam: normal inspection, normal range of motion, pelvis stable Neurologic Exam: alert, oriented x 3, cooperative, normal mood/affect, sensation nml, other (No obvious focal or lateralizing weakness.), No motor deficits Skin Exam: normal color, warm, dry, No rash Lymphatic Exam: No adenopathy SpO2 Interpretation: normal SpO2: 96 O2 Delivery: Room Air - Course Nursing assessment & vital signs reviewed: Yes EKG Interpreted by Me: RATE (81), Sinus Rhythm, NORMAL AXIS, NORMAL INTERVALS - CT Exams Head CT Interpretation: Tele-radiologist Report (Negative CT head without contrast) Ordered Tests: Active Orders 24 hr Category Date Time Status Email Marketing Intern STAT Care 03/05/24 14:44 Active EKG-ER Only STAT Care 03/05/24 14:44 Active IV Insertion STAT Care 03/05/24 14:44 Active Pulse Oximetry (ED) STAT Care 03/05/24 14:44 Active Tele-Health Consult ROUTINE Cons 03/05/24 15:07 Active HEAD WITHOUT CONTRAST [CT] Stat Exams 03/05/24 14:45 Completed CBC W DIFF Stat Lab 03/05/24 15:00 Completed CMP Stat Lab 03/05/24 15:00 Completed TROPONIN Q4H Lab 03/05/24 15:00 Completed TROPONIN Q4H Lab 03/05/24 18:45 Ordered TROPONIN Q4H Lab 03/05/24 22:45 Ordered UA W/RFX UR CULTURE Stat Lab 03/05/24 18:08 Completed Medication Summary Generic Name Dose Route Start Last Admin Trade Name Freq PRN Reason Stop Dose Admin Sodium Chloride 1,000 mls @ 50 mls/hr 03/05/24 14:45 03/05/24 15:34 Sodium Chloride 0.9% 1000 Ml IV 04/04/24 14:44 50 mls/hr .Q20H WILLARD Administration Lab/Rad Data: Laboratory Result Diagrams 03/05/24 15:00 03/05/24 15:00 Laboratory Results 03/05/24 03/05/24 03/05/24 Range/Units 18:08 15:00 15:00 WBC (4.23-9.07) x10^3/uL RBC (4.63-6.08) x10^6/uL Hgb (13.7-17.5) g/dL Hct (40.1-51.0) % MCV (79.0-92.2) fL MCH (25.7-32.2) pg MCHC (32.3-36.5) g/dL RDW (11.6-14.4) % Plt Count (163-337) x10^3/uL MPV (9.4-12.4) fL Gran % (34.0-67.9) % Immature Gran % (Auto) (0.001-0.429) % Nucleat RBC Rel Count (0.00-0.2) % Eos # (Auto) (0.04-0.54) x10^3/uL Immature Gran # (Auto) (0.001-0.031) x10^3u/L Absolute Lymphs (auto) (1.32-3.57) x10^3/uL Absolute Monos (auto) (0.30-0.82) x10^3/uL Absolute Nucleated RBC (0.00-0.012) x10^3u/L Lymphocytes % (21.8-53.1) % Monocytes % (5.3-12.2) % Eosinophils % (0.8-7.0) % Basophils % (0.2-1.2) % Absolute Granulocytes (1.78-5.38) x10^3/uL Basophils # (0.01-0.08) x10^3/uL Sodium 136 (135-145) mmol/L Potassium 4.5 (3.5-5.1) mmol/L Chloride 103 (98-107) mmol/L Carbon Dioxide 27 (22-30) mmol/L Anion Gap 11.3 (5-15) MEQ/L BUN 16 (9-20) mg/dL Creatinine 1.43 H (0.66-1.25) mg/dL Estimated GFR 49.8 ML/MIN Glucose 112 H (74-106) mg/dL Calcium 10.0 (8.4-10.2) mg/dL Total Bilirubin 0.80 (0.2-1.3) mg/dL AST 35 (17-59) U/L ALT 15 (0-50) U/L Alkaline Phosphatase 66 (38-126) U/L Troponin I < 0.012 (0.000-0.033) ng/mL Serum Total Protein 7.7 (6.3-8.2) g/dL Albumin 4.0 (3.5-5.0) g/dL Urine Color Yellow (Yellow) Urine Appearance Clear (Clear) Urine pH 6.0 (4.6-8.0) Ur Specific [place] 1.010 (1.005-1.030) Urine Protein Trace A (Negative) Urine Glucose (UA) Negative (Negative) mg/dL Urine Ketones Trace A (Negative) Urine Blood Negative (Negative) Urine Nitrite Negative (Negative) Urine Bilirubin Negative (Negative) Urine Urobilinogen 0.2 (0.2) mg/dL Ur Leukocyte Esterase Negative (Negative) U Hyaline Cast (Auto) NONE SEEN (0-2) /LPF Urine Microscopic RBC 0-2 (0-5) /HPF Urine Microscopic WBC 0-2 (0-5) /HPF Ur Epithelial Cells None Seen (None Seen) /HPF Urine Bacteria None Seen (None Seen) /HPF Urine Culture Reflexed NO (NO) 03/05/24 Range/Units 15:00 WBC 8.6 (4.23-9.07) x10^3/uL RBC 4.16 L (4.63-6.08) x10^6/uL Hgb 13.7 (13.7-17.5) g/dL Hct 40.5 (40.1-51.0) % MCV 97.4 H (79.0-92.2) fL MCH 32.9 H (25.7-32.2) pg MCHC 33.8 (32.3-36.5) g/dL RDW 12.9 (11.6-14.4) % Plt Count 224 (163-337) x10^3/uL MPV 8.9 L (9.4-12.4) fL Gran % 77.5 H (34.0-67.9) % Immature Gran % (Auto) 0.2 (0.001-0.429) % Nucleat RBC Rel Count 0.0 (0.00-0.2) % Eos # (Auto) 0.29 (0.04-0.54) x10^3/uL Immature Gran # (Auto) 0.02 (0.001-0.031) x10^3u/L Absolute Lymphs (auto) 1.06 L (1.32-3.57) x10^3/uL Absolute Monos (auto) 0.54 (0.30-0.82) x10^3/uL Absolute Nucleated RBC 0.00 (0.00-0.012) x10^3u/L Lymphocytes % 12.3 L (21.8-53.1) % Monocytes % 6.3 (5.3-12.2) % Eosinophils % 3.4 (0.8-7.0) % Basophils % 0.3 (0.2-1.2) % Absolute Granulocytes 6.67 H (1.78-5.38) x10^3/uL Basophils # 0.03 (0.01-0.08) x10^3/uL Sodium (135-145) mmol/L Potassium (3.5-5.1) mmol/L Chloride (98-107) mmol/L Carbon Dioxide (22-30) mmol/L Anion Gap (5-15) MEQ/L BUN (9-20) mg/dL Creatinine (0.66-1.25) mg/dL Estimated GFR ML/MIN Glucose (74-106) mg/dL Calcium (8.4-10.2) mg/dL Total Bilirubin (0.2-1.3) mg/dL AST (17-59) U/L ALT (0-50) U/L Alkaline Phosphatase (38-126) U/L Troponin I (0.000-0.033) ng/mL Serum Total Protein (6.3-8.2) g/dL Albumin (3.5-5.0) g/dL Urine Color (Yellow) Urine Appearance (Clear) Urine pH (4.6-8.0) Ur Specific [place] (1.005-1.030) Urine Protein (Negative) Urine Glucose (UA) (Negative) mg/dL Urine Ketones (Negative) Urine Blood (Negative) Urine Nitrite (Negative) Urine Bilirubin (Negative) Urine Urobilinogen (0.2) mg/dL Ur Leukocyte Esterase (Negative) U Hyaline Cast (Auto) (0-2) /LPF Urine Microscopic RBC (0-5) /HPF Urine Microscopic WBC (0-5) /HPF Ur Epithelial Cells (None Seen) /HPF Urine Bacteria (None Seen) /HPF Urine Culture Reflexed (NO) - Progress Progress: improved Progress Note: Patient had aspirin today. No need for additional aspirin. CT head negative for acute intracranial pathology. Patient evaluated by teleneurologist who advises admission for MRI. Plan of care discussed with patient. Patient agrees to admission [facility] for further evaluation and treatment. Laboratory workup otherwise essentially nonremarkable. Portions of this note were created with voice recognition technology. There may be grammatical, spelling, punctuation or sound alike errors Complexity problem addressed is moderate acute complicated. No critical care time. Complexity of data reviewed and analyzed is extensive. Test ordered test reviewed results analyzed and correlated clinically with history and physical exam. Management discussed with hospitalist who accepts admission to observation at 6:30 PM. Risk of complication and or risk morbidity/mortality patient management is high. Patient requires hospitalization for further evaluation and treatment. Vital stable. Time spent admit patient approximately 20 minutes. Plan of care established for shared decision making. No social determinants of health present impede follow-up. Portions of this note were created with voice recognition technology. There may be grammatical, spelling, punctuation or sound alike errors 03/05/24 18:39 Counseled pt/family regarding: lab results, diagnosis, rad results - Departure Departure Disposition: Observation Clinical Impression: Falls, Generalized weakness Condition: Stable Critical Care Time: No Referrals: TOM AGUILAR MD [Primary Care Provider] - Follow up/PCP as directed
--- NOTE | 2024-03-05 21:10 | PCM.HP ---
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 Patient states was in his usual state of health, when for the past week he has had difficulty with ambulation, repeatedly falling to his right side, causing difficulty with standing as well. He has chronic dysarthria, which is unchanged. No focal weakness or numbness noted. Denies headaches, fevers, vision changes, vertigo, nausea, hearing changes (although has chronic hardness of hearing), ear fullness, sore throat, or nasal con gestion. - Review of Systems All Other Systems: Reviewed and Negative (except as per HPI) Medications & Allergies Home Medications: Home Medication List Gabapentin [Neurontin] 800 mg PO QID 08/03/14 [History Confirmed 07/22/20] Lorazepam 1 mg [Ativan 1 MG] 1 mg PO TID 08/03/14 [History Confirmed 07/22/20] Memantine HCl [Namenda] 10 mg PO BID 08/03/14 [History Confirmed 07/22/20] Tamsulosin HCl 0.4 mg [Flomax 0.4 MG] 0.4 mg PO HS 08/03/14 [History Confirmed 07/22/20] lamoTRIgine [Lamictal] 150 mg PO BID 08/03/14 [History Confirmed 07/22/20] Cyanocobalamin (Vitamin B-12) [Vitamin B12] 2,500 mcg PO DAILY 04/27/16 [History Confirmed 07/22/20] Latanoprost [Xalatan] 1 drop OP DAILY 04/27/16 [History Confirmed 07/22/20] Nitroglycerin 0.4 mg Tablet [Nitrostat 0.4 MG Tablet] 0.4 mg SL UD PRN 04/27/16 [History Confirmed 07/22/20] Aspirin 81 mg PO DAILY 05/05/16 [History Confirmed 07/22/20] B2/Vits A,C,E/Lut/Zeaxanth/Min [Icaps Tablet] 1 each PO BID 05/05/16 [History Confirmed 07/22/20] Cholecalciferol (Vitamin D3) [Vitamin D] 400 unit PO DAILY 12/02/16 [History Confirmed 07/22/20] Dutasteride [Avodart] 0.5 mg PO DAILY 12/02/16 [History Confirmed 07/22/20] Famotidine [Pepcid] 40 mg PO DAILY 12/02/16 [History Confirmed 07/22/20] Amlodipine Besylate 5 mg [Norvasc 5 mg] 5 mg PO DAILY 03/26/20 [History Confirmed 07/22/20] Carboxymethylcell/Glycerin/Pf [Lubricant 0.5-0.9% Eye Drops] 1 drop OP DAILY PRN PRN 03/26/20 [History Confirmed 07/22/20] Diphenoxylate HCl/Atropine [Diphenoxylate-Atrop 2.5-0.025] 1 tablet PO BID PRN 03/26/20 [History Confirmed 07/22/20] Ferrous Sulfate 325 mg [Feosol 325 mg] 1 tablet PO BID 03/26/20 [History Confirmed 07/22/20] Folic Acid 1 mg [Folate 1 mg] 1 mg PO DAILY 03/26/20 [History Confirmed 07/22/20] Furosemide 40 mg [Lasix 40 MG] 40 mg PO DAILY 03/26/20 [History Confirmed 07/22/20] Magnesium Oxide 400 mg [Mag-Ox 400] 400 mg PO BID 03/26/20 [History Confirmed 07/22/20] Spironolactone 25 mg [Aldactone 25 MG] 25 mg PO DAILY 03/26/20 [History Confirmed 07/22/20] Prednisone 10 mg [Deltasone 10 mg] 20 mg PO UD #15 tablet 07/23/20 [Rx] Allergies/Adverse Reactions: Allergies Allergy/AdvReac Type Severity Reaction Status Date / Time potassium [Potassium] AdvReac Intermediate Verified 07/22/20 09:06 - Past Medical History Past Medical History: Yes Neurological History: Alzheimer's Disease, Other (tubeous sclerosis with seizure disorder) ENT History: Cataracts, Glaucoma Cardiac History: Hypertension Respiratory History: No Pertinent History Endocrine Medical History: No Pertinent History Musculoskelatal History: Arthritis GI Medical History: Gallbladder Disease History: Renal Disease Pyscho-Social History: Anxiety Male Reproductive Disorders: Prostate Problems Comment: Kidney sclerosis - Past Surgical History Past Surgical History: Yes Neuro Surgical History: No Pertinent History Cardiac History: No Pertinent History Respiratory Surgery: No Pertinent History GI Surgical History: Hernia Repair Genitourinary Surgical Hx: No Pertinent History Musculskeletal Surgical Hx: Joint Replacement, Orthopedic Surgery Male Surgical History: Prostate Surgery Other Surgical History: dimas phaco with lens implant. prostate surgery.bilateral hip replacement,back Significant Family History: no pertinent family hx - Social History Smoking Status: Never smoker Exposure to second hand smoke: No Alcohol: None Drug Use: none - Social Determinants of Health Will the patient participate in the screening: Declined to provide - Physical Exam Vital Signs: Vital Signs - 24 hr Temp Pulse Resp BP BP Pulse Ox 03/05/24 20:58 98.1 F 81 18 169/79 95 03/05/24 19:47 95 03/05/24 19:31 79 22 163/71 95 03/05/24 19:16 25 H 158/105 97 03/05/24 19:01 74 22 140/82 94 L 03/05/24 18:46 92 H 22 178/81 96 03/05/24 18:44 96 03/05/24 18:30 77 33 H 152/106 96 03/05/24 18:15 79 25 H 158/90 96 03/05/24 18:01 101 H 31 H 198/101 03/05/24 17:46 87 31 H 161/84 03/05/24 17:31 73 21 165/90 96 03/05/24 17:15 79 24 152/69 94 L 03/05/24 17:00 83 15 160/73 95 03/05/24 16:45 76 25 H 166/85 93 L 03/05/24 16:31 77 21 150/87 95 03/05/24 16:17 77 19 169/76 97 03/05/24 16:02 84 21 170/83 95 03/05/24 15:46 79 18 164/75 95 03/05/24 15:30 77 23 156/88 96 03/05/24 15:15 78 33 H 155/88 95 03/05/24 15:13 78 22 157/77 96 03/05/24 15:12 77 23 95 03/05/24 15:11 95 03/05/24 15:10 81 21 95 03/05/24 14:31 97.9 F 83 20 172/92 93 L 03/05/24 14:30 172/92 General Appearance: no apparent distress Neurologic Exam: alert, oriented x 3, cooperative, nml cerebellar function, slurred speech, No sensory deficit, No motor weakness, No facial droop Eye Exam: eyes nml inspection Respiratory Exam: normal breath sounds, lungs clear, No respiratory distress Cardiovascular Exam: regular rate/rhythm, normal heart sounds, No edema Gastrointestinal/Abdomen Exam: No tenderness, No distention Skin Exam: normal color, No rash Results - Labs Lab/Micro Results: Lab Results-Last 24 Hours 03/05/24 03/05/24 03/05/24 Range/Units 15:00 15:00 15:00 WBC 8.6 (4.23-9.07) x10^3/uL RBC 4.16 L (4.63-6.08) x10^6/uL Hgb 13.7 (13.7-17.5) g/dL Hct 40.5 (40.1-51.0) % MCV 97.4 H (79.0-92.2) fL MCH 32.9 H (25.7-32.2) pg MCHC 33.8 (32.3-36.5) g/dL RDW 12.9 (11.6-14.4) % Plt Count 224 (163-337) x10^3/uL MPV 8.9 L (9.4-12.4) fL Gran % 77.5 H (34.0-67.9) % Immature Gran % (Auto) 0.2 (0.001-0.429) % Nucleat RBC Rel Count 0.0 (0.00-0.2) % Eos # (Auto) 0.29 (0.04-0.54) x10^3/uL Immature Gran # (Auto) 0.02 (0.001-0.031) x10^3u/L Absolute Lymphs (auto) 1.06 L (1.32-3.57) x10^3/uL Absolute Monos (auto) 0.54 (0.30-0.82) x10^3/uL Absolute Nucleated RBC 0.00 (0.00-0.012) x10^3u/L Lymphocytes % 12.3 L (21.8-53.1) % Monocytes % 6.3 (5.3-12.2) % Eosinophils % 3.4 (0.8-7.0) % Basophils % 0.3 (0.2-1.2) % Absolute Granulocytes 6.67 H (1.78-5.38) x10^3/uL Basophils # 0.03 (0.01-0.08) x10^3/uL Sodium 136 (135-145) mmol/L Potassium 4.5 (3.5-5.1) mmol/L Chloride 103 (98-107) mmol/L Carbon Dioxide 27 (22-30) mmol/L Anion Gap 11.3 (5-15) MEQ/L BUN 16 (9-20) mg/dL Creatinine 1.43 H (0.66-1.25) mg/dL Estimated GFR 49.8 ML/MIN Glucose 112 H (74-106) mg/dL Calcium 10.0 (8.4-10.2) mg/dL Total Bilirubin 0.80 (0.2-1.3) mg/dL AST 35 (17-59) U/L ALT 15 (0-50) U/L Alkaline Phosphatase 66 (38-126) U/L Troponin I < 0.012 (0.000-0.033) ng/mL Serum Total Protein 7.7 (6.3-8.2) g/dL Albumin 4.0 (3.5-5.0) g/dL Urine Color (Yellow) Urine Appearance (Clear) Urine pH (4.6-8.0) Ur Specific [place] (1.005-1.030) Urine Protein (Negative) Urine Glucose (UA) (Negative) mg/dL Urine Ketones (Negative) Urine Blood (Negative) Urine Nitrite (Negative) Urine Bilirubin (Negative) Urine Urobilinogen (0.2) mg/dL Ur Leukocyte Esterase (Negative) U Hyaline Cast (Auto) (0-2) /LPF Urine Microscopic RBC (0-5) /HPF Urine Microscopic WBC (0-5) /HPF Ur Epithelial Cells (None Seen) /HPF Urine Bacteria (None Seen) /HPF Urine Culture Reflexed (NO) 03/05/24 03/05/24 Range/Units 18:08 18:35 WBC (4.23-9.07) x10^3/uL RBC (4.63-6.08) x10^6/uL Hgb (13.7-17.5) g/dL Hct (40.1-51.0) % MCV (79.0-92.2) fL MCH (25.7-32.2) pg MCHC (32.3-36.5) g/dL RDW (11.6-14.4) % Plt Count (163-337) x10^3/uL MPV (9.4-12.4) fL Gran % (34.0-67.9) % Immature Gran % (Auto) (0.001-0.429) % Nucleat RBC Rel Count (0.00-0.2) % Eos # (Auto) (0.04-0.54) x10^3/uL Immature Gran # (Auto) (0.001-0.031) x10^3u/L Absolute Lymphs (auto) (1.32-3.57) x10^3/uL Absolute Monos (auto) (0.30-0.82) x10^3/uL Absolute Nucleated RBC (0.00-0.012) x10^3u/L Lymphocytes % (21.8-53.1) % Monocytes % (5.3-12.2) % Eosinophils % (0.8-7.0) % Basophils % (0.2-1.2) % Absolute Granulocytes (1.78-5.38) x10^3/uL Basophils # (0.01-0.08) x10^3/uL Sodium (135-145) mmol/L Potassium (3.5-5.1) mmol/L Chloride (98-107) mmol/L Carbon Dioxide (22-30) mmol/L Anion Gap (5-15) MEQ/L BUN (9-20) mg/dL Creatinine (0.66-1.25) mg/dL Estimated GFR ML/MIN Glucose (74-106) mg/dL Calcium (8.4-10.2) mg/dL Total Bilirubin (0.2-1.3) mg/dL AST (17-59) U/L ALT (0-50) U/L Alkaline Phosphatase (38-126) U/L Troponin I < 0.012 (0.000-0.033) ng/mL Serum Total Protein (6.3-8.2) g/dL Albumin (3.5-5.0) g/dL Urine Color Yellow (Yellow) Urine Appearance Clear (Clear) Urine pH 6.0 (4.6-8.0) Ur Specific [place] 1.010 (1.005-1.030) Urine Protein Trace A (Negative) Urine Glucose (UA) Negative (Negative) mg/dL Urine Ketones Trace A (Negative) Urine Blood Negative (Negative) Urine Nitrite Negative (Negative) Urine Bilirubin Negative (Negative) Urine Urobilinogen 0.2 (0.2) mg/dL Ur Leukocyte Esterase Negative (Negative) U Hyaline Cast (Auto) NONE SEEN (0-2) /LPF Urine Microscopic RBC 0-2 (0-5) /HPF Urine Microscopic WBC 0-2 (0-5) /HPF Ur Epithelial Cells None Seen (None Seen) /HPF Urine Bacteria None Seen (None Seen) /HPF Urine Culture Reflexed NO (NO) - Radiology Impressions Radiology Exams & Impressions: Radiology Procedures Category Date Time Status HEAD WITHOUT CONTRAST [CT] Stat Exams 03/05/24 14:45 Completed MRI BRAIN W/O CONTRAST [MRI] Routine Exams 03/05/24 21:[address] head - no acute changes. Mild global atrophic changes. (Images reviewed.) Assessment/Plan (1) Ataxia Current Visit: Yes Status: Acute Assessment & Plan: 78 y/o M with h/o tuberous sclerosis with seizures, CKD3, HTN, BPH, and dementia, here with new-onset ataxia. ## Ataxia - no obvious changes on CT head. No hearing changes or ear fullness to suggest peripheral cause. H/o seizures, but timing of events not consistent with seizures. Possibly stroke (main risk factor is age), vs infectious or inflammatory causes. Tele-neurology consulted in ED. - obtain MRI Brain to evaluate for stroke - monitor on telemetry - check lipid panel in AM - if stroke noted on MRI, will pursue further stroke etiology workup (vascular imaging, echo) - PT/OT evaluate/treat for gait assistance - continue home aspirin 81 mg ## Hypertension - BP elevated on arrival, and not critical. Given possible stroke, will allow for some permissive hypertension overnight, and just try to bring down with home meds. - restart home Norvasc 5, Aldactone 25, Lasix 40 daily ## CKD3 - Cr today is slightly better than his recent baseline of 1.6-1.8. - continue spironolactone and Lasix for now, since stable - consider starting SABRINA-I or ARB instead for better prevention of CKD progression - decrease dose of gabapentin; 800 QID is well-overdosed for his level of renal function; will decrease to 300 TID. As well, gabapentinoids are associated with edema, which may be why he is on diuretics ## Tuberous sclerosis complex, seizure disorder - stable. Unclear if diagnosis of dementia is true dementia or part of TSC neuropsychiatric complex. - continue Lamictal 150 BID, Namenda 10 BID - hold off on Ativan for now; 1 mg TID is high dosing for an older adult - decrease dose of gabapentin as above due to chronic renal impairment ## BPH - continue dutasteride 0.5 daily, Flomax 0.4 qHS Code status: Full Prophylaxis: heparin Diet: Regular Code(s): R27.0 - ATAXIA, UNSPECIFIED Telemedicine Encounter - Telemedicine Encounter Telemedicine Encounter: "The entirety of this encounter was performed via Telemedicine" This visit was performed using real-time audio and video connection between my location and thepatients locationwith the assistance of a surrogateat the patients location. Written or verbal consent was obtained from the patient/guardian to [facility]. Any patient questions regarding the telemedicine interaction were answered.
[2024-03-06] MEDS ORDERED: Namenda 5 MG ONE (00:02)
[2024-03-06] MEDS ORDERED: lamICTAL 100MG TABLET ONE (00:02)
[2024-03-06] MEDS ORDERED: Neurontin ONE (00:03)
[2024-03-06] MEDS: Neurontin PO SCH (00:17)
[2024-03-06] MEDS: LAMOTRIGINE 150 MG PO SCH (00:18)
[2024-03-06] MEDS: MAG-OX 400 PO SCH (00:19)
[2024-03-06] MEDS: NON-FORMULARY ITEM (Memantine Hcl [Namenda] 10 MG) PO SCH (00:20)
[2024-03-06] MEDS: Flomax 0.4 MG PO SCH (00:21)
[2024-03-06] MEDS: HEPARIN 5000 UNITS/0.5 ML (HIGH RISK MED) SQ SCH (04:47)
[2024-03-06 05:16] LABS: Hematocrit 39.2 % (40.1-51.0); Hemoglobin 13.2 g/dL (13.7-17.5); Mean Cell Volume 95.8 fL (79.0-92.2); Mean Corpuscular Hemoglobin 32.3 pg (25.7-32.2); Mean Corpuscular Hgb Concent. 33.7 g/dL (32.3-36.5); Mean Platelet Volume 9.1 fL (9.4-12.4); Platelet Count 224 x10^3/uL (163-337); Red Blood Count 4.09 x10^6/uL (4.63-6.08); Red Cell Distribution Width 12.6 % (11.6-14.4); White Blood Count 7.5 x10^3/uL (4.23-9.07)
--- NOTE | 2024-03-06 05:28 | PCM.NOTE ---
Date and Time: 03/06/24522 Subjective Assessment: HPI: 78 y/o M with h/o tuberous sclerosis on Lamictal, HTN, CKD3 (baseline Cr 1.6- 1.8) BPH admitted 03/05/24 with new onset ataxia after experiencing difficulty with ambulation, repeatedly falling to his right side, causing difficulty with standing as well. He has chronic dysarthria, which is unchanged. No focal weakness or numbness noted. Denies headaches, fevers, vision changes, vertigo, nausea, hearing changes (although has chronic hardness of hearing), ear fullness, sore throat, or nasal congestion. Neurology consulted. CT head negative. - plan for MRI- further stroke work up if stroke noted on imaging. 03/06/24: Met with patient bedside. A&O x 3. Endorses continued weakness and difficulty with ambulation. Patient is noted on exam as leaning to right side. No aphasia, moderate dysarthria. Strength to BUE/BLE 5/5. Sensation intact. Neuro recommendations for MRI and PT eval. MRI planned for today and pending. Patient requesting rehab on discharge, CM working on this. - Review of Systems Constitutional: No Symptoms Eyes: No Symptoms Ears, Nose, & Throat: No Symptoms Respiratory: No Symptoms Cardiac: No Symptoms Abdominal/Gastrointestinal: No Symptoms Genitourinary Symptoms: No Symptoms Musculoskeletal: No Symptoms Skin: No Symptoms Neurological: Gait Changes Psychological: No Symptoms Endocrine: No Symptoms Hematologic/Lymphatic: No Symptoms Immunological/Allergic: No Symptoms Objective Exam General Appearance: no apparent distress Neurologic Exam: alert, oriented x 3, slurred speech, abnormal gait Skin Exam: normal color Eye Exam: PERRL Ears, Nose, Throat Exam: normal ENT inspection Neck Exam: normal inspection Respiratory Exam: normal breath sounds, lungs clear Cardiovascular Exam: regular rate/rhythm, normal heart sounds Gastrointestinal/Abdomen Exam: soft, normal bowel sounds Extremity Exam: normal inspection Back Exam: normal inspection Male Genitalia Exam: deferred Rectal Exam: deferred Objective Data Vital Signs: Vital Signs - 24 hr Temp Pulse Resp BP BP Pulse Ox 03/06/24 04:00 98.0 F 86 17 157/77 92 L 03/06/24 00:00 97.6 F 83 16 179/79 92 L 03/05/24 22:43 96 03/05/24 20:58 98.1 F 81 18 169/79 95 03/05/24 19:47 95 03/05/24 19:31 79 22 163/71 95 03/05/24 19:16 25 H 158/105 97 03/05/24 19:01 74 22 140/82 94 L 03/05/24 18:46 92 H 22 178/81 96 03/05/24 18:44 96 03/05/24 18:30 77 33 H 152/106 96 03/05/24 18:15 79 25 H 158/90 96 03/05/24 18:01 101 H 31 H 198/101 03/05/24 17:46 87 31 H 161/84 03/05/24 17:31 73 21 165/90 96 03/05/24 17:15 79 24 152/69 94 L 03/05/24 17:00 83 15 160/73 95 03/05/24 16:45 76 25 H 166/85 93 L 03/05/24 16:31 77 21 150/87 95 03/05/24 16:17 77 19 169/76 97 03/05/24 16:02 84 21 170/83 95 03/05/24 15:46 79 18 164/75 95 03/05/24 15:30 77 23 156/88 96 03/05/24 15:15 78 33 H 155/88 95 03/05/24 15:13 78 22 157/77 96 03/05/24 15:12 77 23 95 03/05/24 15:11 95 03/05/24 15:10 81 21 95 03/05/24 14:31 97.9 F 83 20 172/92 93 L 03/05/24 14:30 172/92 Pain Assessment - Last Documented Pain Intensity 0 Intake and Output: Intake & Output 03/03/24 03/04/24 03/05/24 03/06/24 11:59 11:59 11:59 11:59 Output Total 575 Balance -575 Weight 91.5 kg Lab Results: Lab Results-Last 24 Hours 03/05/24 03/05/24 03/05/24 Range/Units 15:00 15:00 15:00 WBC 8.6 (4.23-9.07) x10^3/uL RBC 4.16 L (4.63-6.08) x10^6/uL Hgb 13.7 (13.7-17.5) g/dL Hct 40.5 (40.1-51.0) % MCV 97.4 H (79.0-92.2) fL MCH 32.9 H (25.7-32.2) pg MCHC 33.8 (32.3-36.5) g/dL RDW 12.9 (11.6-14.4) % Plt Count 224 (163-337) x10^3/uL MPV 8.9 L (9.4-12.4) fL Gran % 77.5 H (34.0-67.9) % Immature Gran % (Auto) 0.2 (0.001-0.429) % Nucleat RBC Rel Count 0.0 (0.00-0.2) % Eos # (Auto) 0.29 (0.04-0.54) x10^3/uL Immature Gran # (Auto) 0.02 (0.001-0.031) x10^3u/L Absolute Lymphs (auto) 1.06 L (1.32-3.57) x10^3/uL Absolute Monos (auto) 0.54 (0.30-0.82) x10^3/uL Absolute Nucleated RBC 0.00 (0.00-0.012) x10^3u/L Lymphocytes % 12.3 L (21.8-53.1) % Monocytes % 6.3 (5.3-12.2) % Eosinophils % 3.4 (0.8-7.0) % Basophils % 0.3 (0.2-1.2) % Absolute Granulocytes 6.67 H (1.78-5.38) x10^3/uL Basophils # 0.03 (0.01-0.08) x10^3/uL Sodium 136 (135-145) mmol/L Potassium 4.5 (3.5-5.1) mmol/L Chloride 103 (98-107) mmol/L Carbon Dioxide 27 (22-30) mmol/L Anion Gap 11.3 (5-15) MEQ/L BUN 16 (9-20) mg/dL Creatinine 1.43 H (0.66-1.25) mg/dL Estimated GFR 49.8 ML/MIN Glucose 112 H (74-106) mg/dL Calcium 10.0 (8.4-10.2) mg/dL Total Bilirubin 0.80 (0.2-1.3) mg/dL AST 35 (17-59) U/L ALT 15 (0-50) U/L Alkaline Phosphatase 66 (38-126) U/L Troponin I < 0.012 (0.000-0.033) ng/mL Serum Total Protein 7.7 (6.3-8.2) g/dL Albumin 4.0 (3.5-5.0) g/dL Urine Color (Yellow) Urine Appearance (Clear) Urine pH (4.6-8.0) Ur Specific [place] (1.005-1.030) Urine Protein (Negative) Urine Glucose (UA) (Negative) mg/dL Urine Ketones (Negative) Urine Blood (Negative) Urine Nitrite (Negative) Urine Bilirubin (Negative) Urine Urobilinogen (0.2) mg/dL Ur Leukocyte Esterase (Negative) U Hyaline Cast (Auto) (0-2) /LPF Urine Microscopic RBC (0-5) /HPF Urine Microscopic WBC (0-5) /HPF Ur Epithelial Cells (None Seen) /HPF Urine Bacteria (None Seen) /HPF Urine Culture Reflexed (NO) 03/05/24 03/05/24 Range/Units 18:08 18:35 WBC (4.23-9.07) x10^3/uL RBC (4.63-6.08) x10^6/uL Hgb (13.7-17.5) g/dL Hct (40.1-51.0) % MCV (79.0-92.2) fL MCH (25.7-32.2) pg MCHC (32.3-36.5) g/dL RDW (11.6-14.4) % Plt Count (163-337) x10^3/uL MPV (9.4-12.4) fL Gran % (34.0-67.9) % Immature Gran % (Auto) (0.001-0.429) % Nucleat RBC Rel Count (0.00-0.2) % Eos # (Auto) (0.04-0.54) x10^3/uL Immature Gran # (Auto) (0.001-0.031) x10^3u/L Absolute Lymphs (auto) (1.32-3.57) x10^3/uL Absolute Monos (auto) (0.30-0.82) x10^3/uL Absolute Nucleated RBC (0.00-0.012) x10^3u/L Lymphocytes % (21.8-53.1) % Monocytes % (5.3-12.2) % Eosinophils % (0.8-7.0) % Basophils % (0.2-1.2) % Absolute Granulocytes (1.78-5.38) x10^3/uL Basophils # (0.01-0.08) x10^3/uL Sodium (135-145) mmol/L Potassium (3.5-5.1) mmol/L Chloride (98-107) mmol/L Carbon Dioxide (22-30) mmol/L Anion Gap (5-15) MEQ/L BUN (9-20) mg/dL Creatinine (0.66-1.25) mg/dL Estimated GFR ML/MIN Glucose (74-106) mg/dL Calcium (8.4-10.2) mg/dL Total Bilirubin (0.2-1.3) mg/dL AST (17-59) U/L ALT (0-50) U/L Alkaline Phosphatase (38-126) U/L Troponin I < 0.012 (0.000-0.033) ng/mL Serum Total Protein (6.3-8.2) g/dL Albumin (3.5-5.0) g/dL Urine Color Yellow (Yellow) Urine Appearance Clear (Clear) Urine pH 6.0 (4.6-8.0) Ur Specific [place] 1.010 (1.005-1.030) Urine Protein Trace A (Negative) Urine Glucose (UA) Negative (Negative) mg/dL Urine Ketones Trace A (Negative) Urine Blood Negative (Negative) Urine Nitrite Negative (Negative) Urine Bilirubin Negative (Negative) Urine Urobilinogen 0.2 (0.2) mg/dL Ur Leukocyte Esterase Negative (Negative) U Hyaline Cast (Auto) NONE SEEN (0-2) /LPF Urine Microscopic RBC 0-2 (0-5) /HPF Urine Microscopic WBC 0-2 (0-5) /HPF Ur Epithelial Cells None Seen (None Seen) /HPF Urine Bacteria None Seen (None Seen) /HPF Urine Culture Reflexed NO (NO) Radiology Exams: Radiology Procedures Category Date Time Status HEAD WITHOUT CONTRAST [CT] Stat Exams 03/05/24 14:45 Completed MRI BRAIN W/O CONTRAST [MRI] Routine Exams 03/05/24 21:02 Ordered Assessment/Plan (1) Ataxia Current Visit: Yes Status: Acute Assessment & Plan: - Head CT negative - obtain MRI Brain to evaluate for stroke per neuro recommendations - if stroke noted will pursue further workup (CTA head/neck, echo)- scheduled and pending - monitor on telemetry - Lipid panel showing low HDL at 33 - PT/OT evaluate/treat for gait assistance - patient requesting rehab on d/c -CM working on this - continue home aspirin 81 mg Code(s): R27.0 - ATAXIA, UNSPECIFIED (2) HTN (hypertension) Current Visit: Yes Status: Acute Assessment & Plan: -Permissive HTN -continu home medications Norvasc, aldactone, and lasix Code(s): I10 - ESSENTIAL (PRIMARY) HYPERTENSION (3) CKD (chronic kidney disease) stage 3, GFR 30-59 ml/min Current Visit: Yes Status: Acute Assessment & Plan: - Cr today is slightly better at 1.33 than his recent baseline of 1.6-1.8. - continue spironolactone and Lasix for now, since stable - decrease dose of gabapentin; 800 QID is well-overdosed for his level of renal function; will decrease to 300 TID. As well, gabapentinoids are associated with edema, which may be why he is on diuretics Code(s): N18.30 - CHRONIC KIDNEY DISEASE, STAGE 3 UNSPECIFIED (4) Tuberous sclerosis Current Visit: Yes Status: Acute Assessment & Plan: -stable - continue Lamictal 150 BID, Namenda 10 BID - hold off on Ativan for now; 1 mg TID is high dosing for an older adult - decrease dose of gabapentin as above due to chronic renal impairment Code(s): Q85.1 - TUBEROUS SCLEROSIS (5) BPH (benign prostatic hyperplasia) Current Visit: Yes Status: Acute Assessment & Plan: -continue dutasteride and flomax Code status: Full Prophylaxis: heparin Diet: Regular Code(s): N40.0 - BENIGN PROSTATIC HYPERPLASIA WITHOUT LOWER URINRY TRACT SYMP
[2024-03-06 06:00] LABS: Calcium 9.6 mg/dL (8.4-10.2); Creatinine 1 1.33 mg/dL (0.66-1.25); EST GLOMERULAR FILTRATION RATE 54.4 ML/MIN; Potassium 3.8 mmol/L (3.5-5.1)
[2024-03-06] MEDS: Pepcid 20 MG PO SCH (09:33)
[2024-03-06] MEDS: ECOTRIN 81 MG PO SCH (09:33)
[2024-03-06] MEDS: Aldactone 25 MG PO SCH (09:34)
[2024-03-06] MEDS: Avodart 0.5 MG PO SCH (09:34)
[2024-03-06] MEDS: FEOSOL 325 MG PO SCH (09:34)
[2024-03-06] MEDS: NORVASC 5 MG PO SCH (09:34)
[2024-03-06] MEDS: FOLATE 1 MG PO SCH (09:34)
[2024-03-06] MEDS: VITAMIN D PO SCH (09:34)
[2024-03-06] MEDS: Namenda 5 MG PO SCH (09:35)
[2024-03-06] MEDS: Lasix 40 MG PO SCH (09:35)
[2024-03-06] MEDS: lamICTAL 100MG TABLET PO SCH (09:35)
[2024-03-06] MEDS: NEURONTIN PO SCH (09:36)
[2024-03-06] MEDS ORDERED: NON-FORMULARY ITEM (Famotidine [Pepcid] 40 MG Tablet) PO SCH (10:00)
[2024-03-06] MEDS ORDERED: NON-FORMULARY ITEM (Aspirin [Aspirin] 81 MG Tablet) PO SCH (10:00)
[2024-03-06] MEDS ORDERED: CHOLECALCIFEROL 400 UNIT PO SCH (10:00)
[2024-03-06] MEDS ORDERED: LAMOTRIGINE 150 MG PO SCH (10:00)
[2024-03-06] MEDS ORDERED: Xalatan OP SCH (10:00)
[2024-03-06] MEDS ORDERED: NEURONTIN PO SCH (10:00)
[2024-03-06] MEDS ORDERED: MAG-OX 400 PO SCH (10:00)
[2024-03-06] MEDS ORDERED: NON-FORMULARY ITEM (Memantine Hcl [Namenda] 10 MG Tablet) PO SCH (10:00)
--- NOTE | 2024-03-06 14:23 | XRAY ---
Indication: Ataxia. History tuberous sclerosis. Normal CT head exam. Sagittal, coronal, and axial MRI brain performed without contrast using T1, T2, FLAIR, diffusion, and ADC sequences. Comparison: None Age-appropriate global atrophy with a few periventricular degenerative micro-ischemia signal bilaterally. No acute intracranial hemorrhage, abnormal extra-axial fluid collection, or mass effect. Diffusion images negative for restricted signal. Prominent ventricular system not out of proportion to atrophy. Anatomic variant for cavum septum pellucidum. Fourth ventricle is midline. 7/8 cranial nerve complex bilaterally symmetric. Normal flow-void signal within the major intracerebral circulation. Normal appearing craniocervical junction and sella turcica. Paranasal sinuses are clear. Impression: Atrophy and degenerative micro-ischemia within normal limits for patient's age. Remaining MRI brain without contrast exam is negative.
[2024-03-06] MEDS ORDERED: Flomax 0.4 MG PO SCH (22:00)
[2024-03-06] MEDS: Xalatan OP SCH (22:21)
[2024-03-07] MEDS: TYLENOL 325 MG PO PRN (00:37)
[2024-03-07 07:31] LABS: Absolute Neutrophil Ct (ANC) 4.12 x10^3/uL (1.78-5.38); BASOPHIL % 0.3 % (0.2-1.2); Basophil (Absolute #) 0.02 x10^3/uL (0.01-0.08); Eosinophil % 5.4 % (0.8-7.0); Eosinophil (Absolute #) 0.33 x10^3/uL (0.04-0.54); Hematocrit 40.2 % (40.1-51.0); Hemoglobin 13.7 g/dL (13.7-17.5); IMMATURE GRAN # 0.02 x10^3u/L (0.001-0.031); IMMATURE GRAN % 0.3 % (0.001-0.429); Lymphocyte (Absolute #) 1.16 x10^3/uL (1.32-3.57); Lymphocytes % 18.9 % (21.8-53.1); Mean Cell Volume 96.2 fL (79.0-92.2); Mean Corpuscular Hemoglobin 32.8 pg (25.7-32.2); Mean Corpuscular Hgb Concent. 34.1 g/dL (32.3-36.5); Mean Platelet Volume 8.7 fL (9.4-12.4); Monocyte (Absolute #) 0.49 x10^3/uL (0.30-0.82); Neutrophil % 67.1 % (34.0-67.9); Platelet Count 226 x10^3/uL (163-337); Red Blood Count 4.18 x10^6/uL (4.63-6.08); Red Cell Distribution Width 12.9 % (11.6-14.4); White Blood Count 6.1 x10^3/uL (4.23-9.07)
[2024-03-07 07:51] LABS: ALBUMIN 3.9 g/dL (3.5-5.0); ANION GAP 11.1 MEQ/L (5-15); BILIRUBIN,TOTAL 0.8 mg/dL (0.2-1.3); Calcium 9.3 mg/dL (8.4-10.2); Creatinine 1 1.7 mg/dL (0.66-1.25); EST GLOMERULAR FILTRATION RATE 40.5 ML/MIN; Potassium 3.6 mmol/L (3.5-5.1); Total Protein 7.2 g/dL (6.3-8.2)
[2024-03-07 11:24] VITALS: BP 138/90; PULSE 91; RESP 21; TEMP 97.5; O2SAT 92
--- NOTE | 2024-03-07 12:22 | PCM.DS ---
Discharge Summary Date of Admission: 03/05/24 19:35 Date of Discharge: 03/07/24 Admitting Physician: VIRI RUDOLPH MD Consults: Consults on Case 03/05/24 15:07 Tele-Health Consult ROUTINE Primary Care Provider: TOM AGUILAR Allergies Allergies potassium [Potassium] Adverse Reaction (Intermediate, Verified 07/22/20 09:06) states feels hot flashes,states a presc. 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 He has chronic dysarthria, which is unchanged. No focal weakness or numbness noted. Denies headaches, fevers, vision changes, vertigo, nausea, hearing changes (although has chronic hardness of hearing), ear fullness, sore throat, or nasal congestion. Neurology consulted. CT head negativ e. - MRI negative. PT eval with recommendations for rehab on discharge. Patient has been accepted at [facility] and stable for discharge. Discharge Note Latest Assessment & Plan (1) Ataxia Current Visit: Yes Status: Acute Assessment & Plan: - Head CT negative - obtain MRI Brain to evaluate for stroke per neuro recommendations - if stroke noted will pursue further workup (CTA head/neck, echo)- scheduled and pending - monitor on telemetry - Lipid panel showing low HDL at 33 - PT/OT evaluate/treat for gait assistance - patient requesting rehab on d/c -CM working on this - continue home aspirin 81 mg Code(s): R27.0 - ATAXIA, UNSPECIFIED (2) HTN (hypertension) Current Visit: Yes Status: Acute Assessment & Plan: -Permissive HTN -continu home medications Norvasc, aldactone, and lasix Code(s): I10 - ESSENTIAL (PRIMARY) HYPERTENSION (3) CKD (chronic kidney disease) stage 3, GFR 30-59 ml/min Current Visit: Yes Status: Acute Assessment & Plan: - Cr today is slightly better at 1.33 than his recent baseline of 1.6-1.8. - continue spironolactone and Lasix for now, since stable - decrease dose of gabapentin; 800 QID is well-overdosed for his level of renal function; will decrease to 300 TID. As well, gabapentinoids are associated with edema, which may be why he is on diuretics Code(s): N18.30 - CHRONIC KIDNEY DISEASE, STAGE 3 UNSPECIFIED (4) Tuberous sclerosis Current Visit: Yes Status: Acute Assessment & Plan: -stable - continue Lamictal 150 BID, Namenda 10 BID - hold off on Ativan for now; 1 mg TID is high dosing for an older adult - decrease dose of gabapentin as above due to chronic renal impairment Code(s): Q85.1 - TUBEROUS SCLEROSIS (5) BPH (benign prostatic hyperplasia) Current Visit: Yes Status: Acute Assessment & Plan: -continue dutasteride and flomax I spent 35 minutes [id number] with the patient on the day of discharge performing discharge exam, discussing hospital stay and discharge instructions with patient and caregivers, preparation of discharge records, prescriptions & referral forms and addressing any questions/concerns the patient had as documented above. - Vitals & Intake/Output Vital Signs: Vital Signs Temperature 97.5 F 03/07/24 11:21 Pulse Rate 91 H 03/07/24 11:21 Respiratory Rate 21 03/07/24 11:21 Blood Pressure 138/90 03/07/24 11:21 O2 Sat by Pulse Oximetry 92 L 03/07/24 11:21 Intake & Output: Intake & Output 03/05/24 03/06/24 03/07/24 03/08/24 11:59 11:59 11:59 11:59 Intake Total 380 640 Output Total 875 800 Balance -495 -160 Weight 91.5 kg - Lab Result Diagrams: 03/07/24 07:25 03/07/24 07:25 Lab Results-Last 24 Hrs: Lab Results-Last 24 Hours 03/07/24 03/07/24 Range/Units 07:25 07:25 WBC 6.1 (4.23-9.07) x10^3/uL RBC 4.18 L (4.63-6.08) x10^6/uL Hgb 13.7 (13.7-17.5) g/dL Hct 40.2 (40.1-51.0) % MCV 96.2 H (79.0-92.2) fL MCH 32.8 H (25.7-32.2) pg MCHC 34.1 (32.3-36.5) g/dL RDW 12.9 (11.6-14.4) % Plt Count 226 (163-337) x10^3/uL MPV 8.7 L (9.4-12.4) fL Gran % 67.1 (34.0-67.9) % Immature Gran % (Auto) 0.3 (0.001-0.429) % Nucleat RBC Rel Count 0.0 (0.00-0.2) % Eos # (Auto) 0.33 (0.04-0.54) x10^3/uL Immature Gran # (Auto) 0.02 (0.001-0.031) x10^3u/L Absolute Lymphs (auto) 1.16 L (1.32-3.57) x10^3/uL Absolute Monos (auto) 0.49 (0.30-0.82) x10^3/uL Absolute Nucleated RBC 0.00 (0.00-0.012) x10^3u/L Lymphocytes % 18.9 L (21.8-53.1) % Monocytes % 8.0 (5.3-12.2) % Eosinophils % 5.4 (0.8-7.0) % Basophils % 0.3 (0.2-1.2) % Absolute Granulocytes 4.12 (1.78-5.38) x10^3/uL Basophils # 0.02 (0.01-0.08) x10^3/uL Sodium 137 (135-145) mmol/L Potassium 3.6 (3.5-5.1) mmol/L Chloride 101 (98-107) mmol/L Carbon Dioxide 29 (22-30) mmol/L Anion Gap 11.1 (5-15) MEQ/L BUN 18 (9-20) mg/dL Creatinine 1.70 H (0.66-1.25) mg/dL Estimated GFR 40.5 ML/MIN Glucose 103 (74-106) mg/dL Calcium 9.3 (8.4-10.2) mg/dL Total Bilirubin 0.80 (0.2-1.3) mg/dL AST 30 (17-59) U/L ALT 19 (0-50) U/L Alkaline Phosphatase 77 (38-126) U/L Serum Total Protein 7.2 (6.3-8.2) g/dL Albumin 3.9 (3.5-5.0) g/dL - Radiology Exams Ordered Rad Exams-Entire Visit: Radiology Procedures Category Date Time Status HEAD WITHOUT CONTRAST [CT] Stat Exams 03/05/24 14:45 Completed MRI BRAIN W/O CONTRAST [MRI] Routine Exams 03/06/24 21:02 Completed - Procedures and Test Procedures and Tests throughout Hospitalization: Therapy Orders & Screens 03/05/24 21:02 PT Eval & Treat (MD Order) ONCE Reason for Eval:: ataxia Diagnosis: Generalized weakness, falls OT Eval and Treat (MD Order) ONCE Comment: Physician Instructions: Reason For Exam: Diagnosis: Generalized weakness, falls Discharge Exam General Appearance: no apparent distress Neurologic Exam: alert, oriented x 3, cooperative, slurred speech, abnormal gait Eye Exam: PERRL Ears, Nose, Throat Exam: normal ENT inspection Neck Exam: normal inspection Respiratory Exam: normal breath sounds, lungs clear Cardiovascular Exam: regular rate/rhythm, normal heart sounds Gastrointestinal/Abdomen Exam: soft, normal bowel sounds Male Genitalia Exam: deferred Rectal Exam: deferred Back Exam: normal inspection Extremity Exam: normal inspection Skin Exam: normal color Final Diagnosis/Problem List - Final Discharge Diagnosis/Problem (1) Ataxia Current Visit: Yes Status: Acute Code(s): R27.0 - ATAXIA, UNSPECIFIED (2) HTN (hypertension) Current Visit: Yes Status: Chronic Code(s): I10 - ESSENTIAL (PRIMARY) HYPERTENSION (3) CKD (chronic kidney disease) stage 3, GFR 30-59 ml/min Current Visit: Yes Status: Chronic Code(s): N18.30 - CHRONIC KIDNEY DISEASE, STAGE 3 UNSPECIFIED (4) Tuberous sclerosis Current Visit: Yes Status: Chronic Code(s): Q85.1 - TUBEROUS SCLEROSIS (5) BPH (benign prostatic hyperplasia) Current Visit: Yes Status: Chronic Code(s): N40.0 - BENIGN PROSTATIC HYPERPLASIA WITHOUT LOWER URINRY TRACT SYMP - Discharge Disposition: DC TO ANY "OTHER" RESIDENTIAL Condition: Stable Prescriptions: New Gabapentin [Neurontin ] 300 mg PO TID cap Continue Tamsulosin HCl 0.4 mg [Flomax 0.4 MG] 0.4 mg PO HS lamoTRIgine [Lamictal] 150 mg PO BID Memantine HCl [Namenda] 10 mg PO BID Cyanocobalamin (Vitamin B-12) [Vitamin B12] 2,500 mcg PO DAILY Nitroglycerin 0.4 mg Tablet [Nitrostat 0.4 MG Tablet] 0.4 mg SL UD PRN PRN Reason: Chest Pain Latanoprost [Xalatan] 1 drop OP QHS Aspirin 81 mg PO DAILY B2/Vits A,C,E/Lut/Zeaxanth/Min [Icaps Tablet] 1 each PO BID Famotidine [Pepcid] 40 mg PO DAILY Cholecalciferol (Vitamin D3) [Vitamin D] 400 unit PO DAILY Dutasteride [Avodart] 0.5 mg PO DAILY Spironolactone 25 mg [Aldactone 25 MG] 25 mg PO DAILY Magnesium Oxide 400 mg [Mag-Ox 400] 400 mg PO BID Furosemide 40 mg [Lasix 40 MG] 40 mg PO DAILY Folic Acid 1 mg [Folate 1 mg] 1 mg PO DAILY Ferrous Sulfate 325 mg [Feosol 325 mg] 1 tablet PO BID Diphenoxylate HCl/Atropine [Diphenoxylate-Atrop 2.5-0.025] 1 tablet PO BID PRN Carboxymethylcell/Glycerin/Pf [Lubricant 0.5-0.9% Eye Drops] 1 drop OP DAILY PRN PRN PRN Reason: Redness/Irritation Amlodipine Besylate 5 mg [Norvasc 5 mg] 5 mg PO DAILY Discontinued Gabapentin [Neurontin] 800 mg PO QID Lorazepam 1 mg [Ativan 1 MG] 1 mg PO TID Additional Instructions: RESIDENTIAL ORDERS: ADMIT TO [facility] REGULAR DIET PT/OT EVAL AND TREAT SEE ATTACHED MED LIST Follow up with: ELIZABETH SOUSA, [employer] [[employer] PROFESSION STAFF] - 03/13/24 9:20 am
== END 2024-03-07 14:47 ==
LOC: ED 14:27 → MED SURG 19:35
PROVIDERS: ADMIT Internal Medicine; ATTEND Internal Medicine
DX: R27.0 Ataxia, unspecified (principal); I12.9 Hypertensive chronic kidney disease with stage 1 through stage 4 chronic kidney disease, or unspecified chronic kidney disease; N18.9 Chronic kidney disease, unspecified; N40.0 Benign prostatic hyperplasia without lower urinary tract symptoms; Q85.1 Tuberous sclerosis; M62.81 Muscle weakness (generalized); R29.6 Repeated falls; Z79.899 Other long term (current) drug therapy; Z86.11 Personal history of tuberculosis
CPT/HCPCS: 36000; 36415; 70450; 70551; 80048; 80053; 80061; 81001; 83721; 84484; 85025; 85027; 93005; 93041; 94760; 97161; 97165; 97530; 99285; Q3014; 93268; J1644; A9270-GY; G0378

== ENCOUNTER 2024-05-12 13:47 | Emergency (ER) | payer MEDICARE ==
[2024-05-12 13:59] VITALS: TEMP 98.2
[2024-05-12 14:07] LABS: Absolute Neutrophil Ct (ANC) 6.58 x10^3/uL (1.78-5.38); BASOPHIL % 0.2 % (0.2-1.2); Basophil (Absolute #) 0.02 x10^3/uL (0.01-0.08); Eosinophil % 3.2 % (0.8-7.0); Eosinophil (Absolute #) 0.27 x10^3/uL (0.04-0.54); Hematocrit 40.3 % (40.1-51.0); Hemoglobin 13.2 g/dL (13.7-17.5); IMMATURE GRAN # 0.01 x10^3u/L (0.001-0.031); IMMATURE GRAN % 0.1 % (0.001-0.429); Lymphocyte (Absolute #) 0.95 x10^3/uL (1.32-3.57); Lymphocytes % 11.4 % (21.8-53.1); Mean Corpuscular Hemoglobin 32.4 pg (25.7-32.2); Mean Corpuscular Hgb Concent. 32.8 g/dL (32.3-36.5); Mean Platelet Volume 8.9 fL (9.4-12.4); Monocyte (Absolute #) 0.51 x10^3/uL (0.30-0.82); Monocytes % 6.1 % (5.3-12.2); Platelet Count 172 x10^3/uL (163-337); Red Blood Count 4.07 x10^6/uL (4.63-6.08); Red Cell Distribution Width 13.6 % (11.6-14.4); White Blood Count 8.3 x10^3/uL (4.23-9.07)
[2024-05-12 14:20] LABS: ANION GAP 10.2 MEQ/L (5-15); BLOOD UREA NITROGEN 13 mg/dL (9-20); CHLORIDE 103 mmol/L (98-107); Calcium 9.1 mg/dL (8.4-10.2); Carbon Dioxide 29 mmol/L (22-30); Creatinine 1 1.44 mg/dL (0.66-1.25); EST GLOMERULAR FILTRATION RATE 49.4 ML/MIN; ETHYL ALCOHOL < 10 mg/dL (0-10); Glucose 122 mg/dL (74-106); Potassium 4.2 mmol/L (3.5-5.1); SODIUM 138 mmol/L (135-145)
--- NOTE | 2024-05-12 14:33 | ERPHSYRPT ---
- History of Present Illness Time Seen by Provider: 05/12/24 14:28 Source: family, EMS Exam Limitations: clinical condition Patient Subjective Stated Complaint: C/O increased weakness over the past 3 days. Patient indicates he was unable to get out of his recliner today. EMS reports that told them at patient's home that the patient has had poor trunk control for about 3 weeks. Triage Nursing Assessment: Patient arrived by ambulance. He is alert and oriented to self, place, situation, confused to time; diagnosis of alzheimers. Patient leaning to the right in bed. Right sided facial droop noted. NO SOB. Physician History: C/O increased weakness over the past 3 days. Patient indicates he was unable to get out of his recliner today. EMS reports that told them at patient's home that the patient has had poor trunk control for about 3 weeks. Patient is 78-year-old male with significant past medical history of prostatic hyperplasia, Alzheimer dementia, hypertension, glaucoma. He started having some weakness on his left side of the body 3 weeks ago which gradually got worse in last 3 to 4 days 3 to 4 days ago he was able to move around but since last 2 days he has a hard time getting up also having a more slurred speech and facial droop. In the emergency room patient was able to answer all the questions. He is alert. According to no other significant symptoms including chest pain nausea vomiting diarrhea blood in the stool or urine. Timing/Duration: week(s) (three weeks) Severity: mild Character of Deficits: new weakness, Left Facial, LLE, LUE Deficits: cannot stand, cannot walk, decrease ability to stand, decrease ability to walk, unable to stand, weak Baseline/Normal Cognition: poor alertness Allergies/Adverse Reactions: potassium [Potassium] Adverse Reaction (Intermediate, Verified 05/12/24 13:49) states feels hot flashes,states a presc. of it was making him itch,hot Home Medications: Tamsulosin HCl 0.4 mg [Flomax 0.4 MG] 0.4 mg PO HS 08/03/14 [History] lamoTRIgine [Lamictal] 150 mg PO BID 08/03/14 [History] Cyanocobalamin (Vitamin B-12) [Vitamin B12] 5,000 mcg PO DAILY 04/27/16 [History] Latanoprost [Xalatan] 1 drop OP QHS 04/27/16 [History] Nitroglycerin 0.4 mg Tablet [Nitrostat 0.4 MG Tablet] 0.4 mg SL Q5MIN PRN MR X 3 PRN 04/27/16 [History] Aspirin 81 mg PO DAILY 05/05/16 [History] Dutasteride [Avodart] 0.5 mg PO DAILY 12/02/16 [History] Amlodipine Besylate 5 mg [Norvasc 5 mg] 7.5 mg PO DAILY 03/26/20 [History] Furosemide 40 mg [Lasix 40 MG] 40 mg PO DAILY 03/26/20 [History] Cholecalciferol (Vitamin D3) [Vitamin D] 1,000 unit PO DAILY 05/12/24 [History] Lorazepam 1 mg [Ativan 1 MG] 1 mg PO Q8H PRN PRN 05/12/24 [History] Melatonin/Pyridoxine [Melatonin 5 mg Tablet] 5 mg PO HS 05/12/24 [History] Omeprazole 40 mg PO DAILY 05/12/24 [History] Timolol Maleate 0.5% Eye [Timoptic 0.5% 5 ml Ophthalmic] 1 drop DROPS BID 05/12/24 [History] Hx Tetanus, Diphtheria Vaccination/Date Given: Yes Hx Influenza Vaccination/Date Given: Yes Hx Pneumococcal Vaccination/Date Given: Yes Immunizations Up to Date: Yes Travel Risk - International Travel Have you traveled outside of the country in past 3 weeks: No - Emerging Infectious Disease Are you exhibiting symptoms associated with any current EIDs: No - Review of Systems Constitutional: Weakness Eyes: No Symptoms Ears, Nose, & Throat: Other Respiratory: No Symptoms Cardiac: No Symptoms Abdominal/Gastrointestinal: No Symptoms Genitourinary Symptoms: Incontinence Musculoskeletal: No Symptoms Skin: No Symptoms Neurological: Focal Weakness, Gait Changes, Lethargy, Speech Changes Psychological: No Symptoms Endocrine: No Symptoms Hematologic/Lymphatic: No Symptoms - Past Medical History Pertinent Past Medical History: Yes Neurological History: Alzheimer's Disease, Peripheral Neuropathy, Other ENT History: Cataracts, Glaucoma Cardiac History: Angina, Hypertension Respiratory History: No Pertinent History Endocrine Medical History: No Pertinent History Musculoskeletal History: Arthritis GI Medical History: GERD, Gallbladder Disease, Hernia History: Renal Disease Psycho-Social History: Anxiety Male Reproductive Disorders: Prostate Problems Other Medical History: Kidney sclerosis, insomnia - Past Surgical History Past Surgical History: Yes Neuro Surgical History: No Pertinent History Cardiac: No Pertinent History Respiratory: No Pertinent History Gastrointestinal: Hernia Repair Genitourinary: No Pertinent History Musculoskeletal: Joint Replacement, Orthopedic Surgery Male Surgical History: Prostate Surgery Other Surgical History: bilateral lens implant, bilateral hip replacement, back Significant Family History: no pertinent family hx - Social History Smoking Status: Never smoker Exposure to second hand smoke: No Drug Use: none Patient Lives Alone: No - Social Determinants of Health Will the patient participate in the screening: Yes Do you worry about a steady place to live?: No Do you have any problems with any of the following?: No known problems In the past 12 months,have you had to go without utilities?: No Transportation Issues: No Has anyone in your support network made you feel unsafe?: No Have you or anyone in your house had to go without enough: No - Nursing Vital Signs Nursing Vital Signs: Initial Vital Signs Temperature 98.2 F 05/12/24 13:48 Pulse Rate 79 05/12/24 13:48 Respiratory Rate 24 05/12/24 13:48 Blood Pressure 161/69 05/12/24 13:48 O2 Sat by Pulse Oximetry 94 L 05/12/24 13:48 Pain Scale Pain Intensity 0 - Monika Coma Scale Best Eye Response (Monika): (4) open spontaneously Best Verbal Response (Monika): (5) oriented Best Motor Response (Monika): (6) obeys commands Monika Total: 15 - Physical Exam General Appearance: no apparent distress Eye Exam: bilateral eye: normal inspection Ears, Nose, Throat Exam: normal ENT inspection Neck Exam: normal inspection Respiratory: normal breath sounds Cardiovascular: regular rate/rhythm Gastrointestinal: soft Male Genitalia: normal genitalia Rectal Exam: deferred Back Exam: normal inspection Extremity Exam: normal inspection Peripheral Pulses: carotid (R): 2+, carotid (L): 2+, femoral (R): 2+, femoral (L): 2+, dorsalis-pedis (R): 2+, dorsalis-pedis (L): 2+ Mental Status: alert, disoriented to place, disoriented to time cto Exam: PERRL, facial asymmetry (left side), facial droop Coordination/Gait: ABN nose to finger (L) Motor/Sensory: weak motor strength LUE, weak motor strength LLE DTR: bicep (R): 2+, bicep (L): 1+, tricep (R): 2+, tricep (L): 1+, knee (R): 2+, knee (L): 1+, ankle (R): 2+, ankle (L): 1+ Skin Exam: normal color SpO2 Interpretation: normal SpO2: 94 O2 Delivery: Room Air - Course Nursing assessment & vital signs reviewed: Yes EKG Interpreted by Me: Left Bundle Branch Block, Non-specific ST Changes Rhythm Strip: Normal Sinus Rhythm - CT Exams Head CT Interpretation: Tele-radiologist Report Ordered Tests: Active Orders 24 hr Category Date Time Status Service Bar Cashier STAT Care 05/12/24 13:55 Active EKG-ER Only STAT Care 05/12/24 13:54 Active IV Insertion STAT Care 05/12/24 13:54 Active NPO (ED) STAT Care 05/12/24 13:54 Active NPO (ED) STAT Care 05/12/24 14:40 Active CHEST 1 VIEW (PORTABLE) Stat Exams 05/12/24 14:53 Taken HEAD WITHOUT CONTRAST [CT] Stat Exams 05/12/24 14:22 Completed BMP Stat Lab 05/12/24 14:00 Completed CBC W DIFF Stat Lab 05/12/24 14:00 Completed ETHYL ALCOHOL Stat Lab 05/12/24 14:00 Completed TROPONIN Q4H Lab 05/12/24 14:00 Completed TROPONIN Q4H Lab 05/12/24 18:00 Ordered TROPONIN Q4H Lab 05/12/24 22:00 Ordered UA W/RFX UR CULTURE Stat Lab 05/12/24 15:07 Completed Medication Summary Generic Name Dose Route Start Last Admin Trade Name Freq PRN Reason Stop Dose Admin Sodium Chloride 1,000 mls @ 50 mls/hr 05/12/24 14:45 05/12/24 14:46 Sodium Chloride 0.9% 1000 Ml IV 06/11/24 14:44 50 mls/hr .Q20H WILLARD Administration Lab/Rad Data: Laboratory Result Diagrams 05/12/24 14:00 05/12/24 14:00 Laboratory Results 09/15/24 09/15/24 09/15/24 Range/Units 15:07 14:00 14:00 WBC (4.23-9.07) x10^3/uL RBC (4.63-6.08) x10^6/uL Hgb (13.7-17.5) g/dL Hct (40.1-51.0) % MCV (79.0-92.2) fL MCH (25.7-32.2) pg MCHC (32.3-36.5) g/dL RDW (11.6-14.4) % Plt Count (163-337) x10^3/uL MPV (9.4-12.4) fL Gran % (34.0-67.9) % Immature Gran % (Auto) (0.001-0.429) % Nucleat RBC Rel Count (0.00-0.2) % Eos # (Auto) (0.04-0.54) x10^3/uL Immature Gran # (Auto) (0.001-0.031) x10^3u/L Absolute Lymphs (auto) (1.32-3.57) x10^3/uL Absolute Monos (auto) (0.30-0.82) x10^3/uL Absolute Nucleated RBC (0.00-0.012) x10^3u/L Lymphocytes % (21.8-53.1) % Monocytes % (5.3-12.2) % Eosinophils % (0.8-7.0) % Basophils % (0.2-1.2) % Absolute Granulocytes (1.78-5.38) x10^3/uL Basophils # (0.01-0.08) x10^3/uL Sodium 138 (135-145) mmol/L Potassium 4.2 (3.5-5.1) mmol/L Chloride 103 (98-107) mmol/L Carbon Dioxide 29 (22-30) mmol/L Anion Gap 10.2 (5-15) MEQ/L BUN 13 (9-20) mg/dL Creatinine 1.44 H (0.66-1.25) mg/dL Estimated GFR 49.4 ML/MIN Glucose 122 H (74-106) mg/dL Calcium 9.1 (8.4-10.2) mg/dL Troponin I < 0.012 (0.000-0.033) ng/mL Urine Color Yellow (Yellow) Urine Appearance Clear (Clear) Urine pH 7.0 (4.6-8.0) Ur Specific [place] <=1.005 (1.005-1.030) Urine Protein Negative (Negative) Urine Glucose (UA) Negative (Negative) mg/dL Urine Ketones Negative (Negative) Urine Blood Negative (Negative) Urine Nitrite Negative (Negative) Urine Bilirubin Negative (Negative) Urine Urobilinogen 0.2 (0.2) mg/dL Ur Leukocyte Esterase Negative (Negative) U Hyaline Cast (Auto) NONE SEEN (0-2) /LPF Urine Microscopic RBC 0-2 (0-5) /HPF Urine Microscopic WBC 0-2 (0-5) /HPF Ur Epithelial Cells None Seen (None Seen) /HPF Urine Bacteria None Seen (None Seen) /HPF Urine Culture Reflexed NO (NO) Ethyl Alcohol < 10 (0-10) mg/dL 05/12/24 Range/Units 14:00 WBC 8.3 (4.23-9.07) x10^3/uL RBC 4.07 L (4.63-6.08) x10^6/uL Hgb 13.2 L (13.7-17.5) g/dL Hct 40.3 (40.1-51.0) % MCV 99.0 H (79.0-92.2) fL MCH 32.4 H (25.7-32.2) pg MCHC 32.8 (32.3-36.5) g/dL RDW 13.6 (11.6-14.4) % Plt Count 172 (163-337) x10^3/uL MPV 8.9 L (9.4-12.4) fL Gran % 79.0 H (34.0-67.9) % Immature Gran % (Auto) 0.1 (0.001-0.429) % Nucleat RBC Rel Count 0.0 (0.00-0.2) % Eos # (Auto) 0.27 (0.04-0.54) x10^3/uL Immature Gran # (Auto) 0.01 (0.001-0.031) x10^3u/L Absolute Lymphs (auto) 0.95 L (1.32-3.57) x10^3/uL Absolute Monos (auto) 0.51 (0.30-0.82) x10^3/uL Absolute Nucleated RBC 0.00 (0.00-0.012) x10^3u/L Lymphocytes % 11.4 L (21.8-53.1) % Monocytes % 6.1 (5.3-12.2) % Eosinophils % 3.2 (0.8-7.0) % Basophils % 0.2 (0.2-1.2) % Absolute Granulocytes 6.58 H (1.78-5.38) x10^3/uL Basophils # 0.02 (0.01-0.08) x10^3/uL Sodium (135-145) mmol/L Potassium (3.5-5.1) mmol/L Chloride (98-107) mmol/L Carbon Dioxide (22-30) mmol/L Anion Gap (5-15) MEQ/L BUN (9-20) mg/dL Creatinine (0.66-1.25) mg/dL Estimated GFR ML/MIN Glucose (74-106) mg/dL Calcium (8.4-10.2) mg/dL Troponin I (0.000-0.033) ng/mL Urine Color (Yellow) Urine Appearance (Clear) Urine pH (4.6-8.0) Ur Specific [place] (1.005-1.030) Urine Protein (Negative) Urine Glucose (UA) (Negative) mg/dL Urine Ketones (Negative) Urine Blood (Negative) Urine Nitrite (Negative) Urine Bilirubin (Negative) Urine Urobilinogen (0.2) mg/dL Ur Leukocyte Esterase (Negative) U Hyaline Cast (Auto) (0-2) /LPF Urine Microscopic RBC (0-5) /HPF Urine Microscopic WBC (0-5) /HPF Ur Epithelial Cells (None Seen) /HPF Urine Bacteria (None Seen) /HPF Urine Culture Reflexed (NO) Ethyl Alcohol (0-10) mg/dL - Progress Progress: unchanged Medical Desision Making - Independent Historian Additional History obtained from: Spouse - Discussion of managment Reviewed:: Test results Agreed on:: Treatment plan, need for follow-up Will see patient: In office - Diagnostic Testing Diagnostic test were ordered, analyzed, and reviewed by me: Yes Radiological Interpretation: Interpreted by me, Reviewed by me - Risk of complications Low Risk: Low risk of morbidity from additional dx testing or treatment - Departure Clinical Impression: Weakness, Generalized weakness, Left-sided weakness CKD (chronic kidney disease) stage 3, GFR 30-59 ml/min Qualifiers: Chronic kidney disease stage 3 subtype: stage 3b (GFR 30-44) Qualified Code(s): N18.32 - Chronic kidney disease, stage 3b Condition: Stable Critical Care Time: Yes Critical Care Time(excluding separately billable procedures): Critical 30-74 mins Referrals: TOM AGUILAR MD [Primary Care Provider] - Follow up/PCP as directed Instructions: Weakness ED Additional Instructions: Discharge/Care Plan VIRGINIE SOL was seen on 05/12/24 in the Emergency Room. The patient was counseled regarding Diagnosis,Lab results, Imaging studies, need for follow up and when to return to the Emergency Room. Prescriptions given: Discharge Note I have spoken with the patient and/or caregivers. I have explained the patient's condition, diagnosis and treatment plan based on the information available to me at this time. I have answered the patient's and/or caregiver's questions and addressed any concerns. The patient and/or caregivers have as good understanding of the patient's diagnosis, condition and treatment plan as can be expected at this point. The vital signs have been stable. The patient's condition is stable and appropriate for discharge from the emergency department. The patient will pursue further outpatient evaluation with the primary care physician or other designated or consulting physician as outlined in the discharge instructions. The patient and/or caregivers are agreeable to this plan of care and follow-up instructions have been explained in detail. The patient and/or caregivers have received these instruction. The patient/and or caregivers are aware that any significant change in condition or worsening of symptoms should prompt an immediate return to this or the closest emergency department or call 911. VIRGINIE SOL was seen on 05/12/24 n the Emergency Room. At that time you were treated for an emergent condition, during your visit Laboratory, Radiology and/or other procedures may have been ordered. It is very important that you follow-up with your Primary Care Physician TOM AGUILAR within the next 24- 48 hours to review your Emergency Room visit and the final results of testing that was ordered. Some test results such as Urine Cultures, Blood Cultures, and other cultures if ordered will not be finalized for 24-48 hours. If you do not have a Primary Care Provider please call the medical records department at [phone] ext [phone] to obtain a copy of your results or you may sign into our patient portal to obtain these results by visiting us @ [email or web address] and completing the following steps: 1. Click on the Patient Portal link 2. Click the Patient Self Enrollment Link to complete the enrollment form and entering your 3. Once the enrollment form is completed you will receive an email with a temporary ID and password at the email address you provided. 4. Next choose a user name and password. Your user name must be at least 4 characters long and your password must be at least 4 characters long. 5. Choose a security question from the list and provide your answer to the ques tion. If you already have signed into the Health Portal you may access your Health [employer] 20/03 by the following steps: 1. Login to our website @ [email or web address] 2. Enter your original user name and password. FAQS The [facility] Health Portal is an online tool that contains your Lab Results, Radiology Reports, Visit History, Discharge Instructions and Health Summary Lab and Radiology Results will not be available for 72 hours on the portal. The Portal is a secure site, passwords are encryted and URLs are re-written so they cannot be copied and pasted. You and authorized family members are the only ones who can access your Portal. Also there is a timeout feature that protects your information if you leave the Portal page open. If you have technical difficulty please use the Contact Us link on the page this will allow you to submit any questions you have regarding the Portal or you may contact the Medical Record Department at [phone] ext [phone].
[2024-05-12] MEDS ORDERED: Sodium Chloride 0.9% 1000 ML 1,000 ML ONE (14:43)
[2024-05-12] MEDS: Sodium Chloride 0.9% 1000 ML 1,000 ML IV SCH (14:46)
--- NOTE | 2024-05-12 14:56 | XRAY ---
CLINICAL HISTORY: Right sided weakness COMPARISON: Nil TECHNIQUE: Axial non-contrast CT scan of the brain was performed from the skull base to the high parietal region. One of the following dose reduction techniques were utilized for this exam: Automated exposure control, adjustment of the mA and/or kV according to patient size, use of iterative reconstruction. FINDINGS: Brain Parenchyma: Normal attenuation of the cerebral hemispheres, cerebellum, and brainstem. No evidence of acute infarct, hemorrhage, or mass effect. No evidence of hemorrhage, or mass effect. Ventricular System: The ventricular system is prominent. (age-related). Cavum septum pellucidum et verge. (normal variant) Subarachnoid Spaces: Normal sulci and cisterns. No evidence of subarachnoid hemorrhage or extra-axial fluid collections. Cerebellum and Brainstem: Normal size and signal. No masses, lesions, or areas of abnormal signal. Orbits: Normal appearance of the globes, optic nerves, and extraocular muscles. No evidence of orbital masses or abnormal signal. Sinuses: Right side maxillary sinus mild opacification otherwise rest of the sinuses are grossly unremarkable. Clear paranasal sinuses. No evidence of sinusitis or mucosal thickening. Mastoid Air Cells: Clear mastoid air cells. No evidence of mastoiditis. Skull and Meninges: Normal skull morphology. No evidence of meningeal thickening. IMPRESSION: Unremarkable CT of the head without contrast. Electronically Signed by: Goldie Mcgee MD. (05/12/2024 14:51:46 EDT)
[2024-05-12 15:15] LABS: Appearance Clear (Clear); Bacteria None Seen /HPF (None Seen); Bilirubin Negative (Negative); Blood Negative (Negative); Epithelial Cells None Seen /HPF (None Seen); Glucose, Urine Negative (Negative); Hyaline Casts NONE SEEN /LPF (0-2); Ketones Negative (Negative); Leukocyte Esterase Negative (Negative); Nitrite Negative (Negative); Protein,Urine Dip Negative (Negative); RBC 0-2 /HPF (0-5); Specific Gravity <=1.005 (1.005-1.030); Urobilinogen 0.2 mg/dL (0.2); WBC 0-2 /HPF (0-5)
[2024-05-12 15:42] LABS: ADD URINE CULTURE? NO (NO)
[2024-05-12 16:12] VITALS: BP 141/76; PULSE 77; RESP 30; O2SAT 97
--- NOTE | 2024-05-12 18:38 | XRAY ---
Indication: Weakness. Comparison: January 16, 2024 Portable chest less inflated with now mild right hemidiaphragm elevation and right base adjacent infiltrate/atelectasis. Remaining heart and left lung unremarkable. Bony thorax intact again with osteopenia and degenerative changes.
== END 2024-05-12 16:38 | disposition home or self-care (01) ==
LOC: ED 13:47
DX: R53.1 Weakness (principal); I12.9 Hypertensive chronic kidney disease with stage 1 through stage 4 chronic kidney disease, or unspecified chronic kidney disease; N18.32 Chronic kidney disease, stage 3b; R47.81 Slurred speech; R29.810 Facial weakness; Z79.899 Other long term (current) drug therapy
CPT/HCPCS: 36000; 36415; 70450; 71045; 80048; 81001; 82077; 84484; 85025; 93005; 93041; 96360; 99284; 99291

== ENCOUNTER 2024-06-03 05:39 | Emergency (ER) | payer MEDICARE ==
[2024-06-03 06:10] VITALS: RESP 18; TEMP 98.8; O2SAT 97
[2024-06-03 06:13] LABS: Appearance Turbid (Clear); Bacteria Many /HPF (None Seen); Bilirubin Negative (Negative); Blood Large (Negative); Epithelial Cells Rare /HPF (None Seen); Glucose, Urine Negative (Negative); Ketones 15 (Negative); Leukocyte Esterase Large (Negative); Nitrite Positive (Negative); Ph 5.5 (4.6-8.0); Protein,Urine Dip 100 (Negative); WBC >100 /HPF (0-5)
[2024-06-03 06:22] LABS: Hyaline Casts 0-2 /LPF (0-2)
[2024-06-03] MEDS ORDERED: ROCEPHIN 2 GM/100 ML NACL 2 GM/100 ML IVPB IV ONE (06:29)
[2024-06-03] MEDS: ROCEPHIN 2 GM/100 ML NACL 2 GM/100 ML IVPB IV ONE (06:30)
--- NOTE | 2024-06-03 06:50 | ERPHSYRPT ---
- History of Present Illness Time Seen by Provider: 06/03/24 06:35 Source: patient, family Patient Subjective Stated Complaint: ems states that pt has urinary retention Triage Nursing Assessment: pt came into the er via ambulance; pt was transfer to cot per EMS; pt is axo x2; c/o urinary retention; pt states 10/10 pain to lower abd; abd is tender, distended; hyperactive bowel sounds in all quads; tenderness present to lower abd; pt states burning with urination; pt denies N/V/D; skin PDW; no respiratory distress present; hypertensive Physician History: 78-year-old male with history of hypertension, hyperlipidemia, BPH, difficulty urination presented in the ER with gradually increasing urinary complaints with dribbling and some suprapubic distention since last night. Patient is unable to pee now with associated moderate intensity dull aching to sharp pain and pressure in the lower abdomen. Denies any fever or chills. No flank pain. No vomiting or diarrhea reported. Allergies/Adverse Reactions: potassium [Potassium] Adverse Reaction (Intermediate, Verified 06/03/24 05:50) states feels hot flashes,states a presc. of it was making him itch,hot Home Medications: Tamsulosin HCl 0.4 mg [Flomax 0.4 MG] 0.4 mg PO HS 08/03/14 [History] lamoTRIgine [Lamictal] 150 mg PO BID 08/03/14 [History] Cyanocobalamin (Vitamin B-12) [Vitamin B12] 5,000 mcg PO DAILY 04/27/16 [ History] Latanoprost [Xalatan] 1 drop OP QHS 04/27/16 [History] Nitroglycerin 0.4 mg Tablet [Nitrostat 0.4 MG Tablet] 0.4 mg SL Q5MIN PRN MR X 3 PRN 04/27/16 [History] Aspirin 81 mg PO DAILY 05/05/16 [History] Dutasteride [Avodart] 0.5 mg PO DAILY 12/02/16 [History] Amlodipine Besylate 5 mg [Norvasc 5 mg] 7.5 mg PO DAILY 03/26/20 [History] Furosemide 40 mg [Lasix 40 MG] 40 mg PO DAILY 03/26/20 [History] Cholecalciferol (Vitamin D3) [Vitamin D] 1,000 unit PO DAILY 05/12/24 [History] Lorazepam 1 mg [Ativan 1 MG] 1 mg PO Q8H PRN PRN 05/12/24 [History] Melatonin/Pyridoxine [Melatonin 5 mg Tablet] 5 mg PO HS 05/12/24 [History] Omeprazole 40 mg PO DAILY 05/12/24 [History] Timolol Maleate 0.5% Eye [Timoptic 0.5% 5 ml Ophthalmic] 1 drop DROPS BID 05/12/24 [History] Gabapentin [Neurontin ] 800 mg PO TID 06/03/24 [History] Hx Tetanus, Diphtheria Vaccination/Date Given: Yes Hx Influenza Vaccination/Date Given: Yes Hx Pneumococcal Vaccination/Date Given: Yes Immunizations Up to Date: No Travel Risk - International Travel Have you traveled outside of the country in past 3 weeks: No - Emerging Infectious Disease Are you exhibiting symptoms associated with any current EIDs: Yes Symptoms: Abdominal Pain - Past Medical History Pertinent Past Medical History: Yes Neurological History: Alzheimer's Disease, Peripheral Neuropathy, Other ENT History: Cataracts, Glaucoma Cardiac History: Angina, Hypertension Respiratory History: No Pertinent History Endocrine Medical History: No Pertinent History Musculoskeletal History: Arthritis GI Medical History: GERD, Gallbladder Disease, Hernia History: Renal Disease Psycho-Social History: Anxiety Male Reproductive Disorders: Prostate Problems Other Medical History: Kidney sclerosis, insomnia - Past Surgical History Past Surgical History: Yes Neuro Surgical History: No Pertinent History Cardiac: No Pertinent History Respiratory: No Pertinent History Gastrointestinal: Hernia Repair Genitourinary: No Pertinent History Musculoskeletal: Joint Replacement, Orthopedic Surgery Male Surgical History: Prostate Surgery Other Surgical History: bilateral lens implant, bilateral hip replacement, back Significant Family History: no pertinent family hx - Social History Smoking Status: Never smoker Exposure to second hand smoke: No Drug Use: none Patient Lives Alone: No - Social Determinants of Health Will the patient participate in the screening: Yes Do you worry about a steady place to live?: No Do you have any problems with any of the following?: No known problems In the past 12 months,have you had to go without utilities?: No Transportation Issues: No Has anyone in your support network made you feel unsafe?: No Have you or anyone in your house had to go without enough: No - Review of Systems Constitutional: No Symptoms Ears, Nose, & Throat: No Symptoms Respiratory: No Symptoms Cardiac: No Symptoms Abdominal/Gastrointestinal: Abdominal Pain Genitourinary Symptoms: Hesitancy, Urinary Retention Musculoskeletal: Arthralgias Neurological: No Symptoms Hematologic/Lymphatic: No Symptoms - Nursing Vital Signs Nursing Vital Signs: Initial Vital Signs Temperature 98.8 F 06/03/24 05:50 Pulse Rate 101 H 06/03/24 05:50 Respiratory Rate 18 06/03/24 05:50 Blood Pressure 157/92 06/03/24 05:50 O2 Sat by Pulse Oximetry 96 06/03/24 05:50 Pain Scale Pain Intensity 10 - Physical Exam General Appearance: no apparent distress, alert Neck Exam: normal inspection, full range of motion Respiratory Exam: normal breath sounds, lungs clear Cardiovascular Exam: regular rate/rhythm, normal heart sounds Gastrointestinal/Abdomen Exam: soft, normal bowel sounds, tenderness (Suprapubic) Back Exam: normal inspection, normal range of motion, No CVA tenderness Extremity Exam: normal inspection Neurologic Exam: alert, oriented x 3, cooperative Skin Exam: normal color SpO2 Interpretation: normal SpO2: 97 O2 Delivery: Room Air Ordered Tests: Active Orders 24 hr Category Date Time Status CULTURE,URINE Stat Lab 06/03/24 06:01 Ordered UA W/RFX UR CULTURE Stat Lab 06/03/24 06:03 Completed Medication Summary Generic Name Dose Route Start Last Admin Trade Name Freq PRN Reason Stop Dose Admin Ceftriaxone Sodium 2 gm in 100 mls @ 200 mls/hr 06/03/24 06:29 06/03/24 06:30 Rocephin 2 Gm/100 Ml Nacl IV 06/03/24 06:58 200 mls/hr STAT ONE 200 mls/hr Administration Discontinued Medications Generic Name Dose Route Start Last Admin Trade Name Freq PRN Reason Stop Dose Admin Ceftriaxone Sodium Confirm 06/03/24 06:29 Rocephin 2 Gm/100 Ml Nacl Administered 06/03/24 06:30 Dose 2 gm in 100 mls @ ud IV .STK-MED ONE Lab/Rad Data: Laboratory Results 06/03/24 Range/Units 06:03 Urine Color Yellow (Yellow) Urine Appearance Turbid A (Clear) Urine pH 5.5 (4.6-8.0) Ur Specific [place] 1.020 (1.005-1.030) Urine Protein 100 A (Negative) Urine Glucose (UA) Negative (Negative) mg/dL Urine Ketones 15 A (Negative) Urine Blood Large A (Negative) Urine Nitrite Positive A (Negative) Urine Bilirubin Negative (Negative) Urine Urobilinogen 1.0 A (0.2) mg/dL Ur Leukocyte Esterase Large A (Negative) U Hyaline Cast (Auto) 0-2 (0-2) /LPF Urine Microscopic RBC 6-10 A (0-5) /HPF Urine Microscopic WBC >100 A (0-5) /HPF Ur Epithelial Cells Rare (None Seen) /HPF Urine Bacteria Many A (None Seen) /HPF Urine Culture Reflexed ORDERED SEPARATELY (NO) - Progress Progress: improved Progress Note: 06/03/24 06:47 78-year-old is evaluated in the ER for difficulty urination/retention. Patient has more than 450 mL urine drained after placing catheter with improvement in distention and symptomatic relief. Patient does have UTI and given a dose of Rocephin. Will continue with Keflex to go home and outpatient follow-up recommended with primary care and urology. Discussed signs symptoms of worsening needing return to ER which patient/ seem understanding. Stable for discharge. Counseled pt/family regarding: lab results, diagnosis, need for follow-up Medical Desision Making - Independent Historian Additional History obtained from: Spouse, Metal Riveter/EMT - Diagnostic Testing Diagnostic test were ordered, analyzed, and reviewed by me: Yes - Risk of complications The pt has a mod risk of morbidity or mortality based on: Need for prescription drug management - Departure Departure Disposition: Home Clinical Impression: Acute urinary retention Condition: Stable Critical Care Time: No Referrals: TOM AGUILAR MD [Primary Care Provider] - Follow up with PCP 1 day PEDRO RODRIGUEZ [COURTESY STAFF] - Follow up/PCP as directed (Call for reevalua tion appointment) Instructions: Urinary Retention (DC) Additional Instructions: Follow-up with primary care and urology for reevaluation. Return to ER for worsening of pain, difficulty urination at or if develop fever chills/flank pain etc. Prescriptions: Cephalexin Mh 500 mg [Keflex 500 mg] 500 mg PO TID #21 cap
[2024-06-03 07:08] VITALS: BP 170/88; PULSE 98
== END 2024-06-03 07:20 | disposition home or self-care (01) ==
LOC: ED 05:39
DX: R33.9 Retention of urine, unspecified (principal); N39.0 Urinary tract infection, site not specified; R10.30 Lower abdominal pain, unspecified; I10 Essential (primary) hypertension; Z79.899 Other long term (current) drug therapy
CPT/HCPCS: 36000; 51702; 81001; 87077; 87086; 87186; 96365; 99284; J0696

== ENCOUNTER 2024-06-06 15:30 | Observation (INO) | payer MEDICARE ==
[2024-06-06] MEDS: Sodium Chloride 0.9% 1000 ML 1,000 ML IV SCH (16:13)
[2024-06-06 16:22] LABS: Absolute Neutrophil Ct (ANC) 7.22 x10^3/uL (1.78-5.38); BASOPHIL % 0.3 % (0.2-1.2); Basophil (Absolute #) 0.03 x10^3/uL (0.01-0.08); Eosinophil % 4.1 % (0.8-7.0); Eosinophil (Absolute #) 0.39 x10^3/uL (0.04-0.54); Hematocrit 39.8 % (40.1-51.0); Hemoglobin 13.3 g/dL (13.7-17.5); IMMATURE GRAN # 0.09 x10^3u/L (0.001-0.031); IMMATURE GRAN % 0.9 % (0.001-0.429); Lymphocyte (Absolute #) 0.83 x10^3/uL (1.32-3.57); Lymphocytes % 8.7 % (21.8-53.1); Mean Cell Volume 96.1 fL (79.0-92.2); Mean Corpuscular Hemoglobin 32.1 pg (25.7-32.2); Mean Corpuscular Hgb Concent. 33.4 g/dL (32.3-36.5); Monocyte (Absolute #) 0.96 x10^3/uL (0.30-0.82); Monocytes % 10.1 % (5.3-12.2); Neutrophil % 75.9 % (34.0-67.9); Platelet Count 235 x10^3/uL (163-337); Red Blood Count 4.14 x10^6/uL (4.63-6.08); Red Cell Distribution Width 13.7 % (11.6-14.4); White Blood Count 9.5 x10^3/uL (4.23-9.07)
--- NOTE | 2024-06-06 16:34 | XRAY ---
Indication: Weakness. Comparison: May 12, 2024 Portable chest better inflated again with mild right hemidiaphragm elevation and right infrahilar infiltrate/atelectasis. Remaining heart and lungs unremarkable again with a few tiny calcified granulomas. Bony thorax intact again with osteopenia and mild degenerative changes.
[2024-06-06 16:37] LABS: ALBUMIN 3.3 g/dL (3.5-5.0); ANION GAP 14.3 MEQ/L (5-15); BILIRUBIN,TOTAL 0.7 mg/dL (0.2-1.3); Calcium 8.8 mg/dL (8.4-10.2); Creatinine 1 1.35 mg/dL (0.66-1.25); EST GLOMERULAR FILTRATION RATE 53.4 ML/MIN; Potassium 3.7 mmol/L (3.5-5.1); Total Protein 6.2 g/dL (6.3-8.2)
--- NOTE | 2024-06-06 17:17 | ERPHSYRPT ---
- History of Present Illness Time Seen by Provider: 06/06/24 15:32 Source: patient, family, EMS Exam Limitations: no limitations Patient Subjective Stated Complaint: C/O generalized weakness and trouble getting around the house for the past few days. Triage Nursing Assessment: Patient arrived by ambulance. He is alert and oriented; hard of hearing. Forgetful. Pale. Weak, dry cough present. No SOB. No edema. Physician History: 78-year-old male with history of BPH, UTI who was recently evaluated presented back with increasing generalized weakness and fatigue with still having complaints of dribbling of urine and increased frequency with some dysuria. Patient denies any abdominal pain nausea or vomiting. No fever or chills reported. Allergies/Adverse Reactions: potassium [Potassium] Adverse Reaction (Intermediate, Verified 06/06/24 15:36) states feels hot flashes,states a presc. of it was making him itch,hot Home Medications: Tamsulosin HCl 0.4 mg [Flomax 0.4 MG] 0.4 mg PO HS 08/03/14 [History] lamoTRIgine [Lamictal] 150 mg PO BID 08/03/14 [History] Cyanocobalamin (Vitamin B-12) [Vitamin B12] 5,000 mcg PO DAILY 04/27/16 [History] Latanoprost [Xalatan] 1 drop OP QHS 04/27/16 [History] Nitroglycerin 0.4 mg Tablet [Nitrostat 0.4 MG Tablet] 0.4 mg SL Q5MIN PRN MR X 3 PRN 04/27/16 [History] Aspirin 81 mg PO DAILY 05/05/16 [History] Dutasteride [Avodart] 0.5 mg PO DAILY 12/02/16 [History] Amlodipine Besylate 5 mg [Norvasc 5 mg] 7.5 mg PO DAILY 03/26/20 [History] Furosemide 40 mg [Lasix 40 MG] 40 mg PO DAILY 03/26/20 [History] Cholecalciferol (Vitamin D3) [Vitamin D] 1,000 unit PO DAILY 05/12/24 [History] Lorazepam 1 mg [Ativan 1 MG] 1 mg PO Q8H PRN PRN 05/12/24 [History] Melatonin/Pyridoxine [Melatonin 5 mg Tablet] 5 mg PO HS 05/12/24 [History] Omeprazole 40 mg PO DAILY 05/12/24 [History] Timolol Maleate 0.5% Eye [Timoptic 0.5% 5 ml Ophthalmic] 1 drop DROPS BID 05/12/24 [History] Gabapentin [Neurontin ] 800 mg PO TID 06/03/24 [History] Hx Tetanus, Diphtheria Vaccination/Date Given: Yes Hx Influenza Vaccination/Date Given: Yes Hx Pneumococcal Vaccination/Date Given: Yes Immunizations Up to Date: Yes Travel Risk - International Travel Have you traveled outside of the country in past 3 weeks: No - Emerging Infectious Disease Are you exhibiting symptoms associated with any current EIDs: Yes Symptoms: Cough: New Onset - Past Medical History Pertinent Past Medical History: Yes Neurological History: Alzheimer's Disease, Peripheral Neuropathy, Other ENT History: Cataracts, Glaucoma Cardiac History: Angina, Hypertension Respiratory History: No Pertinent History Endocrine Medical History: No Pertinent History Musculoskeletal History: Arthritis GI Medical History: GERD, Gallbladder Disease, Hernia History: Renal Disease Psycho-Social History: Anxiety Male Reproductive Disorders: Prostate Problems Other Medical History: Kidney sclerosis, insomnia, UTI - Past Surgical History Past Surgical History: Yes Neuro Surgical History: No Pertinent History Cardiac: No Pertinent History Respiratory: No Pertinent History Gastrointestinal: Hernia Repair Genitourinary: No Pertinent History Musculoskeletal: Joint Replacement, Orthopedic Surgery Male Surgical History: Prostate Surgery Other Surgical History: bilateral lens implant, bilateral hip replacement, back Significant Family History: no pertinent family hx - Social History Smoking Status: Never smoker Exposure to second hand smoke: No Drug Use: none Patient Lives Alone: No - Social Determinants of Health Will the patient participate in the screening: Declined to provide - Review of Systems Constitutional: Fatigue, Weakness Eyes: No Symptoms Ears, Nose, & Throat: No Symptoms Respiratory: No Symptoms Cardiac: No Symptoms Abdominal/Gastrointestinal: No Symptoms Genitourinary Symptoms: Dysuria, Hesitancy Musculoskeletal: No Symptoms Skin: No Symptoms Neurological: No Symptoms Endocrine: No Symptoms - Nursing Vital Signs Nursing Vital Signs: Initial Vital Signs Pulse Rate 86 06/06/24 15:31 Respiratory Rate 17 06/06/24 15:31 Blood Pressure 156/81 06/06/24 15:31 O2 Sat by Pulse Oximetry 95 06/06/24 15:31 Pain Scale Pain Intensity 5 - Physical Exam General Appearance: no apparent distress, alert Eye Exam: eyes nml inspection Ears, Nose, Throat Exam: normal ENT inspection Neck Exam: normal inspection, full range of motion Respiratory Exam: normal breath sounds, lungs clear Cardiovascular Exam: regular rate/rhythm, normal heart sounds Gastrointestinal/Abdomen Exam: soft, normal bowel sounds, tenderness (Minimal suprapubic tenderness to deep palpation) Back Exam: normal inspection Extremity Exam: normal inspection, normal range of motion Neurologic Exam: alert, oriented x 3, cooperative Skin Exam: normal color SpO2 Interpretation: normal SpO2: 96 O2 Delivery: Room Air Ordered Tests: Active Orders 24 hr Category Date Time Status IV Insertion STAT Care 06/06/24 15:50 Active CHEST 1 VIEW (PORTABLE) Stat Exams 06/06/24 15:51 Completed BLOOD CULTURE Stat Lab 06/06/24 16:15 Received CBC W DIFF Stat Lab 06/06/24 16:08 Completed CMP Stat Lab 06/06/24 16:08 Completed CULTURE,URINE Stat Lab 06/06/24 17:45 Received Lactic Acid Stat Lab 06/06/24 15:50 Completed MAGNESIUM Stat Lab 06/06/24 16:08 Completed PROCALCITONIN Stat Lab 06/06/24 16:08 Completed UA W/RFX UR CULTURE Stat Lab 06/06/24 17:45 Completed Transfer Order Routine Transfer 06/06/24 Ordered Medication Summary Generic Name Dose Route Start Last Admin Trade Name Freq PRN Reason Stop Dose Admin Sodium Chloride 1,000 mls @ 100 mls/hr 06/06/24 16:00 06/06/24 16:13 Sodium Chloride 0.9% 1000 Ml IV 07/06/24 15:59 100 mls/hr .Q10H WILLARD Administration Discontinued Medications Generic Name Dose Route Start Last Admin Trade Name Freq PRN Reason Stop Dose Admin Levofloxacin/Dextrose 500 mg in 100 mls @ 100 mls/hr 06/06/24 19:13 06/06/24 19:39 Levofloxacin 500mg/100ml D5w IV 06/06/24 20:12 100 mls/hr STAT STA 100 mls/hr Administration Levofloxacin/Dextrose Confirm 06/06/24 19:36 Levofloxacin 500mg/100ml D5w Administered 06/06/24 19:37 Dose 500 mg in 100 mls @ ud IV .STK-MED ONE Lab/Rad Data: Laboratory Result Diagrams 06/06/24 16:08 06/06/24 16:08 Laboratory Results 06/06/24 06/06/24 06/06/24 Range/Units 17:45 16:08 16:08 WBC (4.23-9.07) x10^3/uL RBC (4.63-6.08) x10^6/uL Hgb (13.7-17.5) g/dL Hct (40.1-51.0) % MCV (79.0-92.2) fL MCH (25.7-32.2) pg MCHC (32.3-36.5) g/dL RDW (11.6-14.4) % Plt Count (163-337) x10^3/uL MPV (9.4-12.4) fL Gran % (34.0-67.9) % Immature Gran % (Auto) (0.001-0.429) % Nucleat RBC Rel Count (0.00-0.2) % Eos # (Auto) (0.04-0.54) x10^3/uL Immature Gran # (Auto) (0.001-0.031) x10^3u/L Absolute Lymphs (auto) (1.32-3.57) x10^3/uL Absolute Monos (auto) (0.30-0.82) x10^3/uL Absolute Nucleated RBC (0.00-0.012) x10^3u/L Lymphocytes % (21.8-53.1) % Monocytes % (5.3-12.2) % Eosinophils % (0.8-7.0) % Basophils % (0.2-1.2) % Absolute Granulocytes (1.78-5.38) x10^3/uL Basophils # (0.01-0.08) x10^3/uL Sodium 138 (135-145) mmol/L Potassium 3.7 (3.5-5.1) mmol/L Chloride 104 (98-107) mmol/L Carbon Dioxide 24 (22-30) mmol/L Anion Gap 14.3 (5-15) MEQ/L BUN 17 (9-20) mg/dL Creatinine 1.35 H (0.66-1.25) mg/dL Estimated GFR 53.4 ML/MIN Glucose 119 H (74-106) mg/dL Lactic Acid (0.4-2.0) Calcium 8.8 (8.4-10.2) mg/dL Magnesium 2.0 (1.6-2.3) mg/dL Total Bilirubin 0.70 (0.2-1.3) mg/dL AST 49 (17-59) U/L ALT 39 (0-50) U/L Alkaline Phosphatase 77 (38-126) U/L Serum Total Protein 6.2 L (6.3-8.2) g/dL Albumin 3.3 L (3.5-5.0) g/dL Procalcitonin 0.215 H (0.030-0.080) ng/mL Urine Color Yellow (Yellow) Urine Appearance Cloudy A (Clear) Urine pH 5.5 (4.6-8.0) Ur Specific [place] 1.015 (1.005-1.030) Urine Protein 30 (Negative) Urine Glucose (UA) Negative (Negative) mg/dL Urine Ketones Negative (Negative) Urine Blood Moderate A (Negative) Urine Nitrite Negative (Negative) Urine Bilirubin Negative (Negative) Urine Urobilinogen 1.0 A (0.2) mg/dL Ur Leukocyte Esterase Large A (Negative) U Hyaline Cast (Auto) NONE SEEN (0-2) /LPF Urine Microscopic RBC 6-10 A (0-5) /HPF Urine Microscopic WBC >100 A (0-5) /HPF Ur Epithelial Cells None Seen (None Seen) /HPF Urine Bacteria None Seen (None Seen) /HPF Urine Culture Reflexed YES (NO) 06/06/24 06/06/24 Range/Units 16:08 15:50 WBC 9.5 H (4.23-9.07) x10^3/uL RBC 4.14 L (4.63-6.08) x10^6/uL Hgb 13.3 L (13.7-17.5) g/dL Hct 39.8 L (40.1-51.0) % MCV 96.1 H (79.0-92.2) fL MCH 32.1 (25.7-32.2) pg MCHC 33.4 (32.3-36.5) g/dL RDW 13.7 (11.6-14.4) % Plt Count 235 (163-337) x10^3/uL MPV 9.0 L (9.4-12.4) fL Gran % 75.9 H (34.0-67.9) % Immature Gran % (Auto) 0.9 H (0.001-0.429) % Nucleat RBC Rel Count 0.0 (0.00-0.2) % Eos # (Auto) 0.39 (0.04-0.54) x10^3/uL Immature Gran # (Auto) 0.09 H (0.001-0.031) x10^3u/L Absolute Lymphs (auto) 0.83 L (1.32-3.57) x10^3/uL Absolute Monos (auto) 0.96 H (0.30-0.82) x10^3/uL Absolute Nucleated RBC 0.00 (0.00-0.012) x10^3u/L Lymphocytes % 8.7 L (21.8-53.1) % Monocytes % 10.1 (5.3-12.2) % Eosinophils % 4.1 (0.8-7.0) % Basophils % 0.3 (0.2-1.2) % Absolute Granulocytes 7.22 H (1.78-5.38) x10^3/uL Basophils # 0.03 (0.01-0.08) x10^3/uL Sodium (135-145) mmol/L Potassium (3.5-5.1) mmol/L Chloride (98-107) mmol/L Carbon Dioxide (22-30) mmol/L Anion Gap (5-15) MEQ/L BUN (9-20) mg/dL Creatinine (0.66-1.25) mg/dL Estimated GFR ML/MIN Glucose (74-106) mg/dL Lactic Acid 0.8 (0.4-2.0) Calcium (8.4-10.2) mg/dL Magnesium (1.6-2.3) mg/dL Total Bilirubin (0.2-1.3) mg/dL AST (17-59) U/L ALT (0-50) U/L Alkaline Phosphatase (38-126) U/L Serum Total Protein (6.3-8.2) g/dL Albumin (3.5-5.0) g/dL Procalcitonin (0.030-0.080) ng/mL Urine Color (Yellow) Urine Appearance (Clear) Urine pH (4.6-8.0) Ur Specific [place] (1.005-1.030) Urine Protein (Negative) Urine Glucose (UA) (Negative) mg/dL Urine Ketones (Negative) Urine Blood (Negative) Urine Nitrite (Negative) Urine Bilirubin (Negative) Urine Urobilinogen (0.2) mg/dL Ur Leukocyte Esterase (Negative) U Hyaline Cast (Auto) (0-2) /LPF Urine Microscopic RBC (0-5) /HPF Urine Microscopic WBC (0-5) /HPF Ur Epithelial Cells (None Seen) /HPF Urine Bacteria (None Seen) /HPF Urine Culture Reflexed (NO) - Progress Progress: improved, re-examined Progress Note: 06/06/24 21:29 78-year-old who was recently evaluated for UTI symptoms presented back with generalized weakness and still having UTI symptoms. Patient is given gentle hydration. Workup showed normal white count, chemistries with a stable renal function with a creatinine of 1.35, normal lactate but procalcitonin of 0.215. He does have UTI and based on previous culture it is E. coli sensitive to Levaquin and started. Chest x-ray showed some questionable infiltrates as well. But patient is on room air and not in any distress. Levaquin would cover it as well. Discussed with Dr. Wheeler, reviewed history, workup and agreed with admission. Discussed with : Alberto Counseled pt/family regarding: lab results, diagnosis, need for follow-up, rad results Medical Desision Making - Independent Historian Additional History obtained from: Spouse, Tool And Die Maker/EMT - Discussion of managment Care discussed with:: hospitalist Reviewed:: Test results Agreed on:: Treatment plan Will see patient: in hospital - Diagnostic Testing Diagnostic test were ordered, analyzed, and reviewed by me: Yes Radiological Interpretation: Reviewed by me - Risk of complications The pt has a mod risk of morbidity or mortality based on: Need for prescription drug management The pt has a high risk of morbidity or mortality based on: Decision regarding hospitilization or escalation of hosp level of care - Departure Departure Disposition: Observation Clinical Impression: Acute UTI (urinary tract infection), Generalized weakness Condition: Stable Critical Care Time: No Referrals: TOM AGUILAR MD [Primary Care Provider] - Follow up/PCP as directed
[2024-06-06 19:00] LABS: Appearance Cloudy (Clear); Bacteria None Seen /HPF (None Seen); Bilirubin Negative (Negative); Blood Moderate (Negative); Epithelial Cells None Seen /HPF (None Seen); Glucose, Urine Negative (Negative); Hyaline Casts NONE SEEN /LPF (0-2); Ketones Negative (Negative); Leukocyte Esterase Large (Negative); Nitrite Negative (Negative); Ph 5.5 (4.6-8.0); Protein,Urine Dip 30 (Negative); Specific Gravity 1.015 (1.005-1.030); WBC >100 /HPF (0-5)
[2024-06-06] MEDS ORDERED: Levofloxacin 500MG/100ML D5W 500 MG/100 ML BAG IV ONE (19:36)
[2024-06-06] MEDS: Levofloxacin 500MG/100ML D5W 500 MG/100 ML BAG IV STA (19:39)
--- NOTE | 2024-06-06 22:52 | PCM.HP ---
History of Present Illness - Chief Complaint Chief Complaint: weakness Date: 06/06/24 History of Present Illness: is a 78 year old male with h/o CKD3, BPH, and HTN, here with diffuse severe weakness. Patient notes that he has been weaker for the past few days, particularly today, and he was unable to get out of bed. He has also had poor appetite recently. Three days ago he was seen in the ED for dysuria and started on Keflex for UTI. Patient has taken the antibiotics, and thinks he has had some mild improvement in symptoms, but continues to have severe dysuria and frequency. He also has pelvic tenderness. He denies cough, fevers, chest pain, dyspnea, or nausea. - Review of Systems Ears, Nose, & Throat: Other (chronically hard of hearing) All Other Systems: Reviewed and Negative Medications & Allergies Home Medications: Home Medication List Tamsulosin HCl 0.4 mg [Flomax 0.4 MG] 0.4 mg PO HS 08/03/14 [History Confirmed 06/03/24] lamoTRIgine [Lamictal] 150 mg PO BID 08/03/14 [History Confirmed 06/03/24] Cyanocobalamin (Vitamin B-12) [Vitamin B12] 5,000 mcg PO DAILY 04/27/16 [History Confirmed 06/03/24] Latanoprost [Xalatan] 1 drop OP QHS 04/27/16 [History Confirmed 06/03/24] Nitroglycerin 0.4 mg Tablet [Nitrostat 0.4 MG Tablet] 0.4 mg SL Q5MIN PRN MR X 3 PRN 04/27/16 [History Confirmed 06/03/24] Aspirin 81 mg PO DAILY 05/05/16 [History Confirmed 06/03/24] Dutasteride [Avodart] 0.5 mg PO DAILY 12/02/16 [History Confirmed 06/03/24] Amlodipine Besylate 5 mg [Norvasc 5 mg] 7.5 mg PO DAILY 03/26/20 [History Confirmed 06/03/24] Furosemide 40 mg [Lasix 40 MG] 40 mg PO DAILY 03/26/20 [History Confirmed 06/03/24] Cholecalciferol (Vitamin D3) [Vitamin D] 1,000 unit PO DAILY 05/12/24 [History Confirmed 06/03/24] Lorazepam 1 mg [Ativan 1 MG] 1 mg PO Q8H PRN PRN 05/12/24 [History Confirmed 06/03/24] Melatonin/Pyridoxine [Melatonin 5 mg Tablet] 5 mg PO HS 05/12/24 [History Confirmed 06/03/24] Omeprazole 40 mg PO DAILY 05/12/24 [History Confirmed 06/03/24] Timolol Maleate 0.5% Eye [Timoptic 0.5% 5 ml Ophthalmic] 1 drop DROPS BID 05/12/24 [History Confirmed 06/03/24] Cephalexin Mh 500 mg [Keflex 500 mg] 500 mg PO TID #21 cap 06/03/24 [Rx] Gabapentin [Neurontin ] 800 mg PO TID 06/03/24 [History Confirmed 06/03/24] Allergies/Adverse Reactions: Allergies Allergy/AdvReac Type Severity Reaction Status Date / Time potassium [Potassium] AdvReac Intermediate Verified 06/06/24 15:36 - Past Medical History Past Medical History: Yes Neurological History: Alzheimer's Disease, Peripheral Neuropathy, Other ENT History: Cataracts, Glaucoma Cardiac History: Angina, Hypertension Respiratory History: No Pertinent History Endocrine Medical History: No Pertinent History Musculoskelatal History: Arthritis GI Medical History: GERD, Gallbladder Disease, Hernia History: Renal Disease Pyscho-Social History: Anxiety Male Reproductive Disorders: Prostate Problems Comment: Kidney sclerosis, insomnia, UTI - Past Surgical History Past Surgical History: Yes Neuro Surgical History: No Pertinent History Cardiac History: No Pertinent History Respiratory Surgery: No Pertinent History GI Surgical History: Hernia Repair Genitourinary Surgical Hx: No Pertinent History Musculskeletal Surgical Hx: Joint Replacement, Orthopedic Surgery Male Surgical History: Prostate Surgery Other Surgical History: bilateral lens implant, bilateral hip replacement, back Significant Family History: no pertinent family hx - Social History Smoking Status: Never smoker Exposure to second hand smoke: No Alcohol: None Drug Use: none - Social Determinants of Health Will the patient participate in the screening: Declined to provide Do you worry about a steady place to live?: No In the past 12 months,have you had to go without utilities?: No Have you or anyone in your house had to go without enough: No Transportation Issues: No Has anyone in your support network made you feel unsafe?: No Does the patient want assistance with any of the above?: No - Physical Exam Vital Signs: Vital Signs - 24 hr Temp Pulse Resp BP BP Pulse Ox 06/06/24 21:31 96 06/06/24 21:00 82 17 165/104 97 06/06/24 20:30 79 18 172/89 96 06/06/24 20:00 79 22 161/99 95 06/06/24 19:30 77 16 174/85 98 06/06/24 19:00 77 22 173/85 95 06/06/24 18:30 74 24 161/86 97 06/06/24 18:00 78 28 H 165/78 98 06/06/24 17:30 75 23 164/81 98 06/06/24 17:00 85 25 H 164/86 98 06/06/24 16:30 81 29 H 157/90 96 06/06/24 16:00 85 150/85 96 06/06/24 15:36 97.1 F 85 24 156/81 94 L 06/06/24 15:31 86 17 156/81 95 GENERAL: lying in bed in no acute distres NEURO: face symmetric, no dysarthria, hard of hearing bilaterally CV: regular rate & rhythm, no murmurs, no edema PULM: clear to auscultation bilaterally, no work of breathing, on room air ABD: soft, non-distended PSYCH: alert, oriented x3 Results - Labs Lab/Micro Results: Lab Results-Last 24 Hours 06/06/24 06/06/24 06/06/24 Range/Units 15:50 16:08 16:08 WBC 9.5 H (4.23-9.07) x10^3/uL RBC 4.14 L (4.63-6.08) x10^6/uL Hgb 13.3 L (13.7-17.5) g/dL Hct 39.8 L (40.1-51.0) % MCV 96.1 H (79.0-92.2) fL MCH 32.1 (25.7-32.2) pg MCHC 33.4 (32.3-36.5) g/dL RDW 13.7 (11.6-14.4) % Plt Count 235 (163-337) x10^3/uL MPV 9.0 L (9.4-12.4) fL Gran % 75.9 H (34.0-67.9) % Immature Gran % (Auto) 0.9 H (0.001-0.429) % Nucleat RBC Rel Count 0.0 (0.00-0.2) % Eos # (Auto) 0.39 (0.04-0.54) x10^3/uL Immature Gran # (Auto) 0.09 H (0.001-0.031) x10^3u/L Absolute Lymphs (auto) 0.83 L (1.32-3.57) x10^3/uL Absolute Monos (auto) 0.96 H (0.30-0.82) x10^3/uL Absolute Nucleated RBC 0.00 (0.00-0.012) x10^3u/L Lymphocytes % 8.7 L (21.8-53.1) % Monocytes % 10.1 (5.3-12.2) % Eosinophils % 4.1 (0.8-7.0) % Basophils % 0.3 (0.2-1.2) % Absolute Granulocytes 7.22 H (1.78-5.38) x10^3/uL Basophils # 0.03 (0.01-0.08) x10^3/uL Sodium 138 (135-145) mmol/L Potassium 3.7 (3.5-5.1) mmol/L Chloride 104 (98-107) mmol/L Carbon Dioxide 24 (22-30) mmol/L Anion Gap 14.3 (5-15) MEQ/L BUN 17 (9-20) mg/dL Creatinine 1.35 H (0.66-1.25) mg/dL Estimated GFR 53.4 ML/MIN Glucose 119 H (74-106) mg/dL Lactic Acid 0.8 (0.4-2.0) Calcium 8.8 (8.4-10.2) mg/dL Magnesium 2.0 (1.6-2.3) mg/dL Total Bilirubin 0.70 (0.2-1.3) mg/dL AST 49 (17-59) U/L ALT 39 (0-50) U/L Alkaline Phosphatase 77 (38-126) U/L Serum Total Protein 6.2 L (6.3-8.2) g/dL Albumin 3.3 L (3.5-5.0) g/dL Procalcitonin (0.030-0.080) ng/mL Urine Color (Yellow) Urine Appearance (Clear) Urine pH (4.6-8.0) Ur Specific [place] (1.005-1.030) Urine Protein (Negative) Urine Glucose (UA) (Negative) mg/dL Urine Ketones (Negative) Urine Blood (Negative) Urine Nitrite (Negative) Urine Bilirubin (Negative) Urine Urobilinogen (0.2) mg/dL Ur Leukocyte Esterase (Negative) U Hyaline Cast (Auto) (0-2) /LPF Urine Microscopic RBC (0-5) /HPF Urine Microscopic WBC (0-5) /HPF Ur Epithelial Cells (None Seen) /HPF Urine Bacteria (None Seen) /HPF Urine Culture Reflexed (NO) 06/06/24 06/06/24 Range/Units 16:08 17:45 WBC (4.23-9.07) x10^3/uL RBC (4.63-6.08) x10^6/uL Hgb (13.7-17.5) g/dL Hct (40.1-51.0) % MCV (79.0-92.2) fL MCH (25.7-32.2) pg MCHC (32.3-36.5) g/dL RDW (11.6-14.4) % Plt Count (163-337) x10^3/uL MPV (9.4-12.4) fL Gran % (34.0-67.9) % Immature Gran % (Auto) (0.001-0.429) % Nucleat RBC Rel Count (0.00-0.2) % Eos # (Auto) (0.04-0.54) x10^3/uL Immature Gran # (Auto) (0.001-0.031) x10^3u/L Absolute Lymphs (auto) (1.32-3.57) x10^3/uL Absolute Monos (auto) (0.30-0.82) x10^3/uL Absolute Nucleated RBC (0.00-0.012) x10^3u/L Lymphocytes % (21.8-53.1) % Monocytes % (5.3-12.2) % Eosinophils % (0.8-7.0) % Basophils % (0.2-1.2) % Absolute Granulocytes (1.78-5.38) x10^3/uL Basophils # (0.01-0.08) x10^3/uL Sodium (135-145) mmol/L Potassium (3.5-5.1) mmol/L Chloride (98-107) mmol/L Carbon Dioxide (22-30) mmol/L Anion Gap (5-15) MEQ/L BUN (9-20) mg/dL Creatinine (0.66-1.25) mg/dL Estimated GFR ML/MIN Glucose (74-106) mg/dL Lactic Acid (0.4-2.0) Calcium (8.4-10.2) mg/dL Magnesium (1.6-2.3) mg/dL Total Bilirubin (0.2-1.3) mg/dL AST (17-59) U/L ALT (0-50) U/L Alkaline Phosphatase (38-126) U/L Serum Total Protein (6.3-8.2) g/dL Albumin (3.5-5.0) g/dL Procalcitonin 0.215 H (0.030-0.080) ng/mL Urine Color Yellow (Yellow) Urine Appearance Cloudy A (Clear) Urine pH 5.5 (4.6-8.0) Ur Specific [place] 1.015 (1.005-1.030) Urine Protein 30 (Negative) Urine Glucose (UA) Negative (Negative) mg/dL Urine Ketones Negative (Negative) Urine Blood Moderate A (Negative) Urine Nitrite Negative (Negative) Urine Bilirubin Negative (Negative) Urine Urobilinogen 1.0 A (0.2) mg/dL Ur Leukocyte Esterase Large A (Negative) U Hyaline Cast (Auto) NONE SEEN (0-2) /LPF Urine Microscopic RBC 6-10 A (0-5) /HPF Urine Microscopic WBC >100 A (0-5) /HPF Ur Epithelial Cells None Seen (None Seen) /HPF Urine Bacteria None Seen (None Seen) /HPF Urine Culture Reflexed YES (NO) - Radiology Impressions Radiology Exams & Impressions: Radiology Procedures Category Date Time Status CHEST 1 VIEW (PORTABLE) Stat Exams 06/06/24 15:51 Completed CXR - no infiltrate, effusion, or edema (images reviewed) Assessment/Plan (1) Acute cystitis Current Visit: Yes Status: Acute Assessment & Plan: 78 y/o M with h/o CKD3, BPH, and HTN, here with diffuse weakness and UTI. ## Acute cystitis - urine Cx from three days ago is growing E coli that is woo- sensitive, including to cefazolin. The patient's prescription of cephalexin should have been appropriate, and patient notes that he has had some improvement in symptoms, although they are still persistent and bothering him, and likely led to his diffuse weakness (see below). He continues to have pyuria on UA. Unclear if this represents true treatment failure, or insufficient time to benefit while having underlying worsening functional status. Patient has risk for more ascending UTI, including with his prostate issues. However, it is too early to say that has had treatment failure due to prostatitis or pyelon ephritis. - will change to Rocephin for better gram negative coverage and penetration - follow up repeat urine cultures ## Diffuse weakness - likely due to systemic illness and poor PO intake second fredi to that illness. Electrolytes appear normal, and exam is non-focal. Patient may have some degree of dehdration. - give 1L NS - encourage mobility as treat UTI above ## CKD3 - at his baseline Cr of 1.4-1.6. - follow BMP ## BPH - patient has some nocturia, but states it is stable. - continue dutasteride 0.5 daily, tamsulosin 0.4 qHS ## hypertension - BP a little elevated, but in setting of acute illness. Will treat underlying infection and causes for acute change and resume home BP regimen (see AHA Scientific Statement on inpatient hypertension.) - resume home Norvasc 5 Code status: Full code Prophylaxis: Heparin SQ BID Diet: General Dispo: place in observation, expect able to discharge to home in next few days Code(s): N30.00 - ACUTE CYSTITIS WITHOUT HEMATURIA Telemedicine Encounter - Telemedicine Encounter Telemedicine Encounter: "The entirety of this encounter was performed via Telemedicine" This visit was performed using real-time audio and video connection between my location and thepatients locationwith the assistance of a surrogateat the patients location. Written or verbal consent was obtained from the patient/guardian to perform this visit usingsynchrILink Globaltelemedicine technology. Any patient questions regarding the telemedicine interaction were answered.
[2024-06-07 05:37] LABS: Hematocrit 37.4 % (40.1-51.0); Hemoglobin 12.3 g/dL (13.7-17.5); Mean Cell Volume 96.9 fL (79.0-92.2); Mean Corpuscular Hemoglobin 31.9 pg (25.7-32.2); Mean Corpuscular Hgb Concent. 32.9 g/dL (32.3-36.5); Platelet Count 222 x10^3/uL (163-337); Red Blood Count 3.86 x10^6/uL (4.63-6.08); Red Cell Distribution Width 13.5 % (11.6-14.4); White Blood Count 8.7 x10^3/uL (4.23-9.07)
[2024-06-07 06:03] LABS: ANION GAP 13.5 MEQ/L (5-15); Calcium 8.2 mg/dL (8.4-10.2); Creatinine 1 1.22 mg/dL (0.66-1.25); EST GLOMERULAR FILTRATION RATE 60.3 ML/MIN; Potassium 3.4 mmol/L (3.5-5.1)
[2024-06-07] MEDS ORDERED: ROCEPHIN 1 GM / 100 ML NaCl 1 GM/100 ML IVPB IV SCH (10:00)
[2024-06-07] MEDS: Neurontin PO SCH (10:52)
[2024-06-07] MEDS: Avodart 0.5 MG PO SCH (10:52)
[2024-06-07] MEDS: NORVASC 5 MG PO SCH (10:52)
[2024-06-07] MEDS: lamICTAL 100MG TABLET PO SCH (10:53)
[2024-06-07] MEDS: Protonix 40MG Tablet PO SCH (10:53)
[2024-06-07] MEDS: HEPARIN 5000 UNITS/0.5 ML (HIGH RISK MED) SQ SCH (10:53)
--- NOTE | 2024-06-07 12:01 | PCM.NOTE ---
Date and Time: 06/07/24 1153 Subjective Assessment: 06/07/24 is a 78 year old male with h/o CKD3, BPH, and HTN, here with diffuse severe weakness. He is a poor historian, but states he has increased weakness for the past few days and he was unable to get out of bed. He has also had poor appetite recently. He was seen in the E.R. three days ago for dysuria was D/C and started on Keflex for UTI. E-coli seen in UC. Patient took the antibiotics, and thinks he has had some mild improvement in symptoms, but continues to have severe dysuria and frequency. He also has pelvic tenderness. He did have a mild temperature throughout the night 99.3, will continue IV antibiotics. Blood cultures still pending. His blood pressure was 187/93, home blood pressure medication was resumed and will trend. His potassium was 3.4, he has an allergy to potassium, encouraged potassium rich foods. He denies cough, fevers, chest pain, dyspnea, or nausea. - Review of Systems Constitutional: Weakness, No Fever, No Chills Eyes: No Symptoms Ears, Nose, & Throat: No Symptoms Respiratory: No Cough, No Short Of Breath Cardiac: No Chest Pain, No Edema, No Syncope Abdominal/Gastrointestinal: No Abdominal Pain, No Nausea, No Vomiting, No Diarrhea Genitourinary Symptoms: No Dysuria Musculoskeletal: No Back Pain, No Neck Pain Skin: No Rash Neurological: No Dizziness, No Focal Weakness, No Sensory Changes Psychological: No Symptoms Endocrine: No Symptoms Hematologic/Lymphatic: No Symptoms Immunological/Allergic: No Symptoms Objective Exam General Appearance: no apparent distress, alert Neurologic Exam: alert, oriented x 3, cooperative, normal mood/affect, nml cerebellar function, sensation nml, motor weakness, No motor deficits Skin Exam: normal color, warm, dry Wound Assessment: Skin/Wound Assessment Wound/Incision Assessment Start: 06/06/24 23:11 Text: Status: Active Freq: Q6H Protocol: Document 06/07/24 05:11 KS (Rec: 06/07/24 05:23 KS [id number]) Wound/Incision Assessment Left Buttock Wound Assessment Admission Wound Type Abrasion Wound Stage Non Pressure Wound Dressing Status Dry & Intact Drainage Amount None General Appearance Reddened Wound Bed Greatest Portion Red (Granulation),Shiny Surrounding Tissue Percy Topical Solution/Irrigant Medicated Ointment Primary Dressing mepelex Eye Exam: PERRL, EOMI, eyes nml inspection Ears, Nose, Throat Exam: normal ENT inspection, pharynx normal, moist mucous membranes Neck Exam: normal inspection, non-tender, supple, full range of motion Respiratory Exam: normal breath sounds, lungs clear, No respiratory distress Cardiovascular Exam: regular rate/rhythm, normal heart sounds Gastrointestinal/Abdomen Exam: soft, No tenderness, No mass Extremity Exam: normal inspection, normal range of motion Back Exam: normal inspection, normal range of motion, No CVA tenderness, No vertebral tenderness Male Genitalia Exam: deferred Rectal Exam: deferred Objective Data Vital Signs: Vital Signs - 24 hr Temp Pulse Resp BP BP Pulse Ox 06/07/24 07:36 98 F 84 19 187/93 94 L 06/07/24 04:00 98.3 F 80 20 200/95 95 06/06/24 22:03 99.3 F 78 18 193/89 98 06/06/24 22:00 189/89 06/06/24 21:31 96 06/06/24 21:00 82 17 165/104 97 06/06/24 20:30 79 18 172/89 96 06/06/24 20:00 79 22 161/99 95 06/06/24 19:30 77 16 174/85 98 06/06/24 19:00 77 22 173/85 95 06/06/24 18:30 74 24 161/86 97 06/06/24 18:00 78 28 H 165/78 98 06/06/24 17:30 75 23 164/81 98 06/06/24 17:00 85 25 H 164/86 98 06/06/24 16:30 81 29 H 157/90 96 06/06/24 16:00 85 150/85 96 06/06/24 15:36 97.1 F 85 24 156/81 94 L 06/06/24 15:31 86 17 156/81 95 Pain Assessment - Last Documented Pain Intensity 0 Intake and Output: Intake & Output 06/04/24 06/05/24 06/06/24 06/07/24 11:59 11:59 11:59 11:59 Intake Total 552 Output Total 850 Balance -298 Weight 86 kg Lab Results: Lab Results-Last 24 Hours 06/06/24 06/06/2424 Range/Units 15:50 16:08 16:08 WBC 9.5 H (4.23-9.07) x10^3/uL RBC 4.14 L (4.63-6.08) x10^6/uL Hgb 13.3 L (13.7-17.5) g/dL Hct 39.8 L (40.1-51.0) % MCV 96.1 H (79.0-92.2) fL MCH 32.1 (25.7-32.2) pg MCHC 33.4 (32.3-36.5) g/dL RDW 13.7 (11.6-14.4) % Plt Count 235 (163-337) x10^3/uL MPV 9.0 L (9.4-12.4) fL Gran % 75.9 H (34.0-67.9) % Immature Gran % (Auto) 0.9 H (0.001-0.429) % Nucleat RBC Rel Count 0.0 (0.00-0.2) % Eos # (Auto) 0.39 (0.04-0.54) x10^3/uL Immature Gran # (Auto) 0.09 H (0.001-0.031) x10^3u/L Absolute Lymphs (auto) 0.83 L (1.32-3.57) x10^3/uL Absolute Monos (auto) 0.96 H (0.30-0.82) x10^3/uL Absolute Nucleated RBC 0.00 (0.00-0.012) x10^3u/L Lymphocytes % 8.7 L (21.8-53.1) % Monocytes % 10.1 (5.3-12.2) % Eosinophils % 4.1 (0.8-7.0) % Basophils % 0.3 (0.2-1.2) % Absolute Granulocytes 7.22 H (1.78-5.38) x10^3/uL Basophils # 0.03 (0.01-0.08) x10^3/uL Sodium 138 (135-145) mmol/L Potassium 3.7 (3.5-5.1) mmol/L Chloride 104 (98-107) mmol/L Carbon Dioxide 24 (22-30) mmol/L Anion Gap 14.3 (5-15) MEQ/L BUN 17 (9-20) mg/dL Creatinine 1.35 H (0.66-1.25) mg/dL Estimated GFR 53.4 ML/MIN Glucose 119 H (74-106) mg/dL Lactic Acid 0.8 (0.4-2.0) Calcium 8.8 (8.4-10.2) mg/dL Magnesium 2.0 (1.6-2.3) mg/dL Total Bilirubin 0.70 (0.2-1.3) mg/dL AST 49 (17-59) U/L ALT 39 (0-50) U/L Alkaline Phosphatase 77 (38-126) U/L Serum Total Protein 6.2 L (6.3-8.2) g/dL Albumin 3.3 L (3.5-5.0) g/dL Procalcitonin (0.030-0.080) ng/mL Urine Color (Yellow) Urine Appearance (Clear) Urine pH (4.6-8.0) Ur Specific [place] (1.005-1.030) Urine Protein (Negative) Urine Glucose (UA) (Negative) mg/dL Urine Ketones (Negative) Urine Blood (Negative) Urine Nitrite (Negative) Urine Bilirubin (Negative) Urine Urobilinogen (0.2) mg/dL Ur Leukocyte Esterase (Negative) U Hyaline Cast (Auto) (0-2) /LPF Urine Microscopic RBC (0-5) /HPF Urine Microscopic WBC (0-5) /HPF Ur Epithelial Cells (None Seen) /HPF Urine Bacteria (None Seen) /HPF Urine Culture Reflexed (NO) 06/06/24 06/06/24 06/07/24 Range/Units 16:08 17:45 05:22 WBC 8.7 (4.23-9.07) x10^3/uL RBC 3.86 L (4.63-6.08) x10^6/uL Hgb 12.3 L (13.7-17.5) g/dL Hct 37.4 L (40.1-51.0) % MCV 96.9 H (79.0-92.2) fL MCH 31.9 (25.7-32.2) pg MCHC 32.9 (32.3-36.5) g/dL RDW 13.5 (11.6-14.4) % Plt Count 222 (163-337) x10^3/uL MPV 9.0 L (9.4-12.4) fL Gran % (34.0-67.9) % Immature Gran % (Auto) (0.001-0.429) % Nucleat RBC Rel Count (0.00-0.2) % Eos # (Auto) (0.04-0.54) x10^3/uL Immature Gran # (Auto) (0.001-0.031) x10^3u/L Absolute Lymphs (auto) (1.32-3.57) x10^3/uL Absolute Monos (auto) (0.30-0.82) x10^3/uL Absolute Nucleated RBC (0.00-0.012) x10^3u/L Lymphocytes % (21.8-53.1) % Monocytes % (5.3-12.2) % Eosinophils % (0.8-7.0) % Basophils % (0.2-1.2) % Absolute Granulocytes (1.78-5.38) x10^3/uL Basophils # (0.01-0.08) x10^3/uL Sodium (135-145) mmol/L Potassium (3.5-5.1) mmol/L Chloride (98-107) mmol/L Carbon Dioxide (22-30) mmol/L Anion Gap (5-15) MEQ/L BUN (9-20) mg/dL Creatinine (0.66-1.25) mg/dL Estimated GFR ML/MIN Glucose (74-106) mg/dL Lactic Acid (0.4-2.0) Calcium (8.4-10.2) mg/dL Magnesium (1.6-2.3) mg/dL Total Bilirubin (0.2-1.3) mg/dL AST (17-59) U/L ALT (0-50) U/L Alkaline Phosphatase (38-126) U/L Serum Total Protein (6.3-8.2) g/dL Albumin (3.5-5.0) g/dL Procalcitonin 0.215 H (0.030-0.080) ng/mL Urine Color Yellow (Yellow) Urine Appearance Cloudy A (Clear) Urine pH 5.5 (4.6-8.0) Ur Specific [place] 1.015 (1.005-1.030) Urine Protein 30 (Negative) Urine Glucose (UA) Negative (Negative) mg/dL Urine Ketones Negative (Negative) Urine Blood Moderate A (Negative) Urine Nitrite Negative (Negative) Urine Bilirubin Negative (Negative) Urine Urobilinogen 1.0 A (0.2) mg/dL Ur Leukocyte Esterase Large A (Negative) U Hyaline Cast (Auto) NONE SEEN (0-2) /LPF Urine Microscopic RBC 6-10 A (0-5) /HPF Urine Microscopic WBC >100 A (0-5) /HPF Ur Epithelial Cells None Seen (None Seen) /HPF Urine Bacteria None Seen (None Seen) /HPF Urine Culture Reflexed YES (NO) 06/07/24 Range/Units 05:22 WBC (4.23-9.07) x10^3/uL RBC (4.63-6.08) x10^6/uL Hgb (13.7-17.5) g/dL Hct (40.1-51.0) % MCV (79.0-92.2) fL MCH (25.7-32.2) pg MCHC (32.3-36.5) g/dL RDW (11.6-14.4) % Plt Count (163-337) x10^3/uL MPV (9.4-12.4) fL Gran % (34.0-67.9) % Immature Gran % (Auto) (0.001-0.429) % Nucleat RBC Rel Count (0.00-0.2) % Eos # (Auto) (0.04-0.54) x10^3/uL Immature Gran # (Auto) (0.001-0.031) x10^3u/L Absolute Lymphs (auto) (1.32-3.57) x10^3/uL Absolute Monos (auto) (0.30-0.82) x10^3/uL Absolute Nucleated RBC (0.00-0.012) x10^3u/L Lymphocytes % (21.8-53.1) % Monocytes % (5.3-12.2) % Eosinophils % (0.8-7.0) % Basophils % (0.2-1.2) % Absolute Granulocytes (1.78-5.38) x10^3/uL Basophils # (0.01-0.08) x10^3/uL Sodium 138 (135-145) mmol/L Potassium 3.4 L (3.5-5.1) mmol/L Chloride 107 (98-107) mmol/L Carbon Dioxide 21 L (22-30) mmol/L Anion Gap 13.5 (5-15) MEQ/L BUN 15 (9-20) mg/dL Creatinine 1.22 (0.66-1.25) mg/dL Estimated GFR 60.3 ML/MIN Glucose 96 (74-106) mg/dL Lactic Acid (0.4-2.0) Calcium 8.2 L (8.4-10.2) mg/dL Magnesium (1.6-2.3) mg/dL Total Bilirubin (0.2-1.3) mg/dL AST (17-59) U/L ALT (0-50) U/L Alkaline Phosphatase (38-126) U/L Serum Total Protein (6.3-8.2) g/dL Albumin (3.5-5.0) g/dL Procalcitonin (0.030-0.080) ng/mL Urine Color (Yellow) Urine Appearance (Clear) Urine pH (4.6-8.0) Ur Specific [place] (1.005-1.030) Urine Protein (Negative) Urine Glucose (UA) (Negative) mg/dL Urine Ketones (Negative) Urine Blood (Negative) Urine Nitrite (Negative) Urine Bilirubin (Negative) Urine Urobilinogen (0.2) mg/dL Ur Leukocyte Esterase (Negative) U Hyaline Cast (Auto) (0-2) /LPF Urine Microscopic RBC (0-5) /HPF Urine Microscopic WBC (0-5) /HPF Ur Epithelial Cells (None Seen) /HPF Urine Bacteria (None Seen) /HPF Urine Culture Reflexed (NO) Radiology Exams: Radiology Procedures Category Date Time Status CHEST 1 VIEW (PORTABLE) Stat Exams 06/06/24 15:51 Completed Multi-Disciplinary Progress Notes: Multi-Disciplinary Progress Notes 06/07/24 10:16 Case Management Note by Clarisse Ordaz [facility] THEY WERE NOTIFIED PATIENT HERE OBS. THEY WILL NEED NOTIFIED AT TIME OF AT [phone]. THEY WILL NEED FAXED THE DC INSTRUCTIONS, DC MED LIST AND DC SUMMARY TO [phone] Initialized on 06/07/24 10:16 - END OF NOTE Assessment/Plan (1) Acute cystitis Current Visit: Yes Status: Acute Assessment & Plan: -Continued Rocephin -Temp 99.3 at 2000 -Blood cultures x2 pending -IVF stopped today -WBC 8.7 -Urine Cx preliminary negative Code(s): N30.00 - ACUTE CYSTITIS WITHOUT HEMATURIA (2) JEAN MARIE (acute kidney injury) Current Visit: Yes Status: Resolved Assessment & Plan: -IVF stopped -JEAN MARIE resolved Code(s): N17.9 - ACUTE KIDNEY FAILURE, UNSPECIFIED (3) Generalized weakness Current Visit: Yes Status: Acute Assessment & Plan: -PT eval and treat Code(s): R53.1 - WEAKNESS (4) Hypokalemia Current Visit: Yes Status: Acute Assessment & Plan: -Potassium 3.4 today -Pt allergic to potassium, advised of potassium rich foods Code(s): E87.6 - HYPOKALEMIA (5) BPH (benign prostatic hyperplasia) Current Visit: No Status: Chronic Assessment & Plan: -Continue Flomax Code(s): N40.0 - BENIGN PROSTATIC HYPERPLASIA WITHOUT LOWER URINRY TRACT SYMP (6) CKD (chronic kidney disease) stage 3, GFR 30-59 ml/min Current Visit: No Status: Chronic Qualifiers: Chronic kidney disease stage 3 subtype: stage 3b (GFR 30-44) Qualified Code(s): N18.32 - Chronic kidney disease, stage 3b Assessment & Plan: -Pt is at baseline Cr 1.22 Code(s): N18.30 - CHRONIC KIDNEY DISEASE, STAGE 3 UNSPECIFIED (7) HTN (hypertension) Current Visit: No Status: Chronic Assessment & Plan: -Pt was not taking medication at home -Resumed Norvac 7.5mg -Start hydralazine 12.5 QID -VTE- Heparin -PPI-Protonix -Next of Kin: -Code Status: Full -D/C plan 2-3 days Code(s): I10 - ESSENTIAL (PRIMARY) HYPERTENSION
[2024-06-07] MEDS: TIMOPTIC 0.5% 5 ML OPHTHALMIC OP SCH (12:30)
[2024-06-07] MEDS: ROCEPHIN 1 GM / 100 ML NaCl 1 GM/100 ML IVPB IV SCH (12:30)
[2024-06-07] MEDS: Apresoline 25 MG TABLET PO SCH (13:05)
[2024-06-07] MEDS: MELATONIN PO SCH (21:30)
[2024-06-07] MEDS: Xalatan OP SCH (21:30)
[2024-06-07] MEDS: Flomax 0.4 MG PO SCH (21:30)
[2024-06-07] MEDS: TYLENOL 325 MG PO PRN (23:39)
[2024-06-08 05:39] LABS: Hemoglobin 12.1 g/dL (13.7-17.5); Mean Cell Volume 95.7 fL (79.0-92.2); Mean Corpuscular Hemoglobin 32.2 pg (25.7-32.2); Mean Corpuscular Hgb Concent. 33.6 g/dL (32.3-36.5); Mean Platelet Volume 8.8 fL (9.4-12.4); Platelet Count 232 x10^3/uL (163-337); Red Blood Count 3.76 x10^6/uL (4.63-6.08); Red Cell Distribution Width 13.6 % (11.6-14.4); White Blood Count 8.5 x10^3/uL (4.23-9.07)
[2024-06-08 05:54] LABS: ALBUMIN 3.2 g/dL (3.5-5.0); ANION GAP 15.7 MEQ/L (5-15); BILIRUBIN,TOTAL 0.6 mg/dL (0.2-1.3); Calcium 8.6 mg/dL (8.4-10.2); Creatinine 1 1.26 mg/dL (0.66-1.25); Potassium 3.5 mmol/L (3.5-5.1); Total Protein 6.4 g/dL (6.3-8.2)
[2024-06-08 07:11] VITALS: BP 158/67; PULSE 83; RESP 20; TEMP 98.6; O2SAT 95
--- NOTE | 2024-06-08 09:28 | PCM.DS ---
Discharge Summary Date of Admission: 06/06/24 21:31 Date of Discharge: 06/08/24 Admitting Physician: VIRI RUDOLPH MD Primary Care Provider: TOM AGUILAR Allergies Allergies potassium [Potassium] Adverse Reaction (Intermediate, Verified 06/06/24 15:36) states feels hot flashes,states a presc. of it was making him itch,hot Hospital Summary - Hospital Course Hospital Course: 06/07/24 is a 78 year old male with h/o CKD3, BPH, and HTN, here with diffuse severe weakness. He is a poor historian, but states he has increased weakness for the past few days and he was unable to get out of bed. He has also had poor appetite recently. He was seen in the E.R. three days ago for dysuria was D/C and started on Keflex for UTI. E-coli seen in UC. Patient took the antibiotics, and thinks he has had some mild improvement in symptoms, but continues to have severe dysuria and frequency. He also has pelvic tenderness. He did have a mild temperature throughout the night 99.3, will continue IV antibiotics. Blood cultures still pending. His blood pressure was 187/93, home blood pressure medication was resumed and will trend. His potassium was 3.4, he has an allergy to potassium, encouraged potassium rich foods. He denies cough, fevers, chest pain, dyspnea, or nausea. 06/08/24 Pt resting in bed. Urine culture negative and IV antibiotics stopped. Per PT eval yesterday he is at his baseline function and only required standby assist. Hypokalemia resolved. He states he feels fine and would like to go home today. He denies any further concerns at this time. - Vitals & Intake/Output Vital Signs: Vital Signs Temperature 98.6 F 06/08/24 07:10 Pulse Rate 83 06/08/24 07:10 Respiratory Rate 20 06/08/24 07:10 Blood Pressure 158/67 06/08/24 07:10 O2 Sat by Pulse Oximetry 95 06/08/24 07:10 Intake & Output: Intake & Output 06/05/24 06/06/24 06/07/24 06/08/24 11:59 11:59 11:59 11:59 Intake Total 552 935 Output Total 850 575 Balance -298 360 Weight 86 kg - Lab Result Diagrams: 06/08/24 05:20 06/08/24 05:20 Lab Results-Last 24 Hrs: Lab Results-Last 24 Hours 06/08/24 06/08/24 Range/Units 05:20 05:20 WBC 8.5 (4.23-9.07) x10^3/uL RBC 3.76 L (4.63-6.08) x10^6/uL Hgb 12.1 L (13.7-17.5) g/dL Hct 36.0 L (40.1-51.0) % MCV 95.7 H (79.0-92.2) fL MCH 32.2 (25.7-32.2) pg MCHC 33.6 (32.3-36.5) g/dL RDW 13.6 (11.6-14.4) % Plt Count 232 (163-337) x10^3/uL MPV 8.8 L (9.4-12.4) fL Sodium 138 (135-145) mmol/L Potassium 3.5 (3.5-5.1) mmol/L Chloride 105 (98-107) mmol/L Carbon Dioxide 20 L (22-30) mmol/L Anion Gap 15.7 H (5-15) MEQ/L BUN 14 (9-20) mg/dL Creatinine 1.26 H (0.66-1.25) mg/dL Estimated GFR 58.0 ML/MIN Glucose 102 (74-106) mg/dL Calcium 8.6 (8.4-10.2) mg/dL Total Bilirubin 0.60 (0.2-1.3) mg/dL AST 39 (17-59) U/L ALT 35 (0-50) U/L Alkaline Phosphatase 71 (38-126) U/L Serum Total Protein 6.4 (6.3-8.2) g/dL Albumin 3.2 L (3.5-5.0) g/dL Micro Results-Entire Visit: Microbiology 06/06/24 17:45 Urine Culture - Final Urine, Void NO GROWTH 06/06/24 16:08 Blood Culture - Preliminary Blood 06/06/24 16:15 Blood Culture - Preliminary Blood - Radiology Exams Ordered Rad Exams-Entire Visit: Radiology Procedures Category Date Time Status CHEST 1 VIEW (PORTABLE) Stat Exams 06/06/24 15:51 Completed - Procedures and Test Procedures and Tests throughout Hospitalization: Therapy Orders & Screens 06/07/24 08:24 PT Eval & Treat ( Order) ONCE Reason for Eval:: weakness Diagnosis: weakness Discharge Exam General Appearance: no apparent distress, alert Neurologic Exam: alert, oriented x 3, cooperative, normal mood/affect, nml cerebellar function, sensation nml, No motor deficits Eye Exam: PERRL, EOMI, eyes nml inspection Ears, Nose, Throat Exam: normal ENT inspection, pharynx normal, moist mucous membranes Neck Exam: normal inspection, non-tender, supple, full range of motion Respiratory Exam: normal breath sounds, lungs clear, No respiratory distress Cardiovascular Exam: regular rate/rhythm, normal heart sounds Gastrointestinal/Abdomen Exam: soft, No tenderness, No mass Male Genitalia Exam: deferred Rectal Exam: deferred Back Exam: normal inspection, normal range of motion, No CVA tenderness, No vertebral tenderness Extremity Exam: normal inspection, normal range of motion Skin Exam: normal color, warm, dry Wound Assessment: Skin/Wound Assessment Wound/Incision Assessment Start: 06/06/24 23:11 Text: Status: Active Freq: Q6H Protocol: Document 06/08/24 08:00 [facility] (Rec: 06/08/24 08:47 [facility] [id number]) Wound/Incision Assessment Left Buttock Wound Assessment Shift Assessment Wound Type Abrasion Wound Stage Non Pressure Wound Dressing Status Dry & Intact Drainage Amount None Primary Dressing Mepilex Comment Dressing remains C/D/I Wound Photo Photo Taken No Final Diagnosis/Problem List - Final Discharge Diagnosis/Problem (1) Acute cystitis Current Visit: Yes Status: Acute Code(s): N30.00 - ACUTE CYSTITIS WITHOUT HEMATURIA (2) JEAN MARIE (acute kidney injury) Current Visit: Yes Status: Resolved Code(s): N17.9 - ACUTE KIDNEY FAILURE, UNSPECIFIED (3) Generalized weakness Current Visit: Yes Status: Acute Code(s): R53.1 - WEAKNESS (4) Hypokalemia Current Visit: Yes Status: Acute Code(s): E87.6 - HYPOKALEMIA (5) BPH (benign prostatic hyperplasia) Current Visit: No Status: Chronic Code(s): N40.0 - BENIGN PROSTATIC HYPERPLASIA WITHOUT LOWER URINRY TRACT SYMP (6) CKD (chronic kidney disease) stage 3, GFR 30-59 ml/min Current Visit: No Status: Chronic Code(s): N18.30 - CHRONIC KIDNEY DISEASE, STAGE 3 UNSPECIFIED (7) HTN (hypertension) Current Visit: No Status: Chronic Assessment & Plan: (1) Acute cystitis Current Visit: Yes Status: Acute Assessment & Plan: -Continued Rocephin -Temp 99.3 at 2000 -Blood cultures x2 pending -IVF stopped today -WBC 8.7 -Urine Cx preliminary negative 06/08 - UC negative- IV antibiotics stopped - BC x2 negative - no fever overnight Code(s): N30.00 - ACUTE CYSTITIS WITHOUT HEMATURIA (2) JEAN MARIE (acute kidney injury) Current Visit: Yes Status: Resolved Assessment & Plan: -IVF stopped -JEAN MARIE resolved Code(s): N17.9 - ACUTE KIDNEY FAILURE, UNSPECIFIED (3) Generalized weakness Current Visit: Yes Status: Acute Assessment & Plan: -PT eval and treat - Per PT at baseline function with standby assist. Code(s): R53.1 - WEAKNESS (4) Hypokalemia Current Visit: Yes Status: Acute Assessment & Plan: -Potassium 3.4 today -Pt allergic to potassium, advised of potassium rich foods 06/08 - K+ 3.5- resolved - Continued to encourage potassium rich foods. Code(s): E87.6 - HYPOKALEMIA (5) BPH (benign prostatic hyperplasia) Current Visit: No Status: Chronic Assessment & Plan: -Continue Flomax Code(s): N40.0 - BENIGN PROSTATIC HYPERPLASIA WITHOUT LOWER URINRY TRACT SYMP (6) CKD (chronic kidney disease) stage 3, GFR 30-59 ml/min Current Visit: No Status: Chronic Qualifiers: Chronic kidney disease stage 3 subtype: stage 3b (GFR 30-44) Qualified Code(s): N18.32 - Chronic kidney disease, stage 3b Assessment & Plan: -Pt is at baseline Cr 1.22 Code(s): N18.30 - CHRONIC KIDNEY DISEASE, STAGE 3 UNSPECIFIED (7) HTN (hypertension) Current Visit: No Status: Chronic Assessment & Plan: -Pt was not taking medication at home -Resumed Norvac 7.5mg -Start hydralazine 12.5 QID 06/08 - 1 month of prescriptions sent in- will need OP f/u with PCP and f/u OP BP monitoring Code(s): I10 - ESSENTIAL (PRIMARY) HYPERTENSION - Discharge Discharge Date: 06/08/24 Disposition: Home, Self-Care Condition: Stable Prescriptions: New HydrALAzine HCL 25 MG TAB [Apresoline 25 MG TABLET] 12.5 mg PO QID 30 Days #120 tablet Amlodipine Besylate 5 mg [Norvasc 5 mg] 7.5 mg PO QAM 30 Days #30 tablet Continue Tamsulosin HCl 0.4 mg [Flomax 0.4 MG] 0.4 mg PO HS lamoTRIgine [Lamictal] 150 mg PO BID Latanoprost [Xalatan] 1 drop OP QHS Dutasteride [Avodart] 0.5 mg PO DAILY Omeprazole 40 mg PO DAILY Melatonin/Pyridoxine [Melatonin 5 mg Tablet] 5 mg PO HS Lorazepam 1 mg [Ativan 1 MG] 1 mg PO Q8H PRN PRN PRN Reason: Anxiety Timolol Maleate 0.5% Eye [Timoptic 0.5% 5 ml Ophthalmic] 1 drop DROPS BID Gabapentin [Neurontin ] 800 mg PO TID Cephalexin Mh 500 mg [Keflex 500 mg] 500 mg PO TID #21 cap Instructions: High-potassium diet Additional Instructions: - 1 month of blood pressure med prescriptions sent in- will need OP f/u with PCP and f/u OP BP monitoring Follow up with: CHARLENE OLEARY DO [ACTIVE STAFF] - 06/12/24 1:00 pm Forms: Discharge Instructions
== END 2024-06-08 10:25 | disposition home health service (06) ==
LOC: ED 15:30 → MED SURG 21:31
PROVIDERS: ADMIT Internal Medicine; ATTEND Internal Medicine
DX: N30.00 Acute cystitis without hematuria (principal); I12.9 Hypertensive chronic kidney disease with stage 1 through stage 4 chronic kidney disease, or unspecified chronic kidney disease; N18.32 Chronic kidney disease, stage 3b; N40.0 Benign prostatic hyperplasia without lower urinary tract symptoms; A49.8 Other bacterial infections of unspecified site; N17.9 Acute kidney failure, unspecified; R53.1 Weakness; E87.6 Hypokalemia; Z79.899 Other long term (current) drug therapy
CPT/HCPCS: 36415; 71045; 80048; 80053; 81001; 83605; 83735; 84145; 85025; 85027; 87040; 87086; 96365; 97161; 99283; G0378; Q3014; J0696; J1644; J1956; A9270-GY

== ENCOUNTER 2024-06-10 15:51 | Emergency (ER) | payer MEDICARE ==
[2024-06-10 16:00] VITALS: PULSE 90; TEMP 96.8
--- NOTE | 2024-06-10 17:25 | ERPHSYRPT ---
- History of Present Illness Source: patient Exam Limitations: no limitations Patient Subjective Stated Complaint: pt c/o of right hip pain that radiates to the back of his knee Triage Nursing Assessment: Pt brought to the ER by EMS, hypertensive, rates right hip pain as 8/10, denies injury, has been hurting for about 4 weeks, pulses normal, skin n/w/d, no difficulty breathing, pt was dishcharged from this hospital on , doesn't appear to be in any distress Physician History: The patient has right hip pain. It started yesterday. It got a little bit worse today. He was in the hospital for UTI and weakness Through Monday.He is able to ambulate it is a little bit painful. His main problem is he has difficulty getting into a standing position from seated position. There is no obvious deformities and there is been no trauma. The patient has dementia and is not a very good historian.There is no deformities noted. Allergies/Adverse Reactions: potassium [Potassium] Adverse Reaction (Intermediate, Verified 06/10/24 16:00) states feels hot flashes,states a presc. of it was making him itch,hot Home Medications: Tamsulosin HCl 0.4 mg [Flomax 0.4 MG] 0.4 mg PO HS 08/03/14 [History] lamoTRIgine [Lamictal] 150 mg PO BID 08/03/14 [History] Latanoprost [Xalatan] 1 drop OP QHS 04/27/16 [History] Dutasteride [Avodart] 0.5 mg PO DAILY 12/02/16 [History] Lorazepam 1 mg [Ativan 1 MG] 1 mg PO Q8H PRN PRN 05/12/24 [History] Melatonin/Pyridoxine [Melatonin 5 mg Tablet] 5 mg PO HS 05/12/24 [History] Omeprazole 40 mg PO DAILY 05/12/24 [History] Timolol Maleate 0.5% Eye [Timoptic 0.5% 5 ml Ophthalmic] 1 drop DROPS BID 05/12/24 [History] Gabapentin [Neurontin ] 800 mg PO TID 06/03/24 [History] Hx Tetanus, Diphtheria Vaccination/Date Given: Yes Hx Influenza Vaccination/Date Given: Yes Hx Pneumococcal Vaccination/Date Given: Yes Travel Risk - International Travel Have you traveled outside of the country in past 3 weeks: No - Emerging Infectious Disease Are you exhibiting symptoms associated with any current EIDs: No Symptoms: Other (Please Comment) Comment: weakness h/o UTI - Review of Systems Constitutional: No Symptoms Eyes: No Symptoms Respiratory: No Symptoms Cardiac: No Symptoms Skin: No Symptoms Neurological: No Symptoms - Past Medical History Pertinent Past Medical History: Yes Neurological History: Alzheimer's Disease, Peripheral Neuropathy, Other ENT History: Cataracts, Glaucoma Cardiac History: Angina, Hypertension Respiratory History: No Pertinent History Endocrine Medical History: No Pertinent History Musculoskeletal History: Arthritis GI Medical History: GERD, Gallbladder Disease, Hernia History: Renal Disease Psycho-Social History: Anxiety Male Reproductive Disorders: Prostate Problems Other Medical History: Kidney sclerosis, insomnia, UTI - Past Surgical History Past Surgical History: Yes Neuro Surgical History: No Pertinent History Cardiac: No Pertinent History Respiratory: No Pertinent History Gastrointestinal: Hernia Repair Genitourinary: No Pertinent History Musculoskeletal: Joint Replacement, Orthopedic Surgery Male Surgical History: Prostate Surgery Other Surgical History: bilateral lens implant, bilateral hip replacement, back Significant Family History: no pertinent family hx - Social History Smoking Status: Never smoker Exposure to second hand smoke: No Drug Use: none Patient Lives Alone: No - Social Determinants of Health Will the patient participate in the screening: Declined to provide Do you worry about a steady place to live?: No In the past 12 months,have you had to go without utilities?: No Transportation Issues: No Has anyone in your support network made you feel unsafe?: No Have you or anyone in your house had to go without enough: No - Nursing Vital Signs Nursing Vital Signs: Initial Vital Signs Temperature 96.8 F 06/10/24 15:53 Pulse Rate 90 06/10/24 15:53 Blood Pressure 170/83 06/10/24 15:53 O2 Sat by Pulse Oximetry 96 06/10/24 15:53 Pain Scale Pain Intensity 8 - Physical Exam General Appearance: no apparent distress Eyes, Ears, Nose, Throat Exam: normal ENT inspection Cardiovascular/Respiratory Exam: chest non-tender, normal breath sounds, regular rate/rhythm Hips Exam: right: limited range of motion, pain, soft tissue tenderness, bilateral: no evidence of injury Legs Exam: bilateral leg: non-tender, normal inspection, normal range of motion, no evidence of injury Knees Exam: bilateral knee: non-tender, normal inspection, normal range of motion, no evidence of injury Ankle Exam: bilateral ankle: non-tender, normal inspection, normal range of motion, no evidence of injury SpO2: 96 - Course Nursing assessment & vital signs reviewed: Yes Ordered Tests: Active Orders 24 hr Category Date Time Status HIP UNI (2V) INCL PEL IF DONE Stat Exams 06/10/24 17:04 Taken - Progress Progress: unchanged Progress Note: Patient was stable throughout stay.His x-ray was interpreted by me. There is no acute findings. He says he is able to get around and do what he needs to do at home. I went to give him some [place] to go home with. And then we will phone him in a prescription.I think he does has a hip strain. I think it was from getting on the bedpan while he was in the hospital. That is what he thinks as well. 06/10/24 18:01 Medical Desision Making - Social Determinants of Health Pt's dx & treatment plan are significantly limited by SDOH: limited education - Diagnostic Testing Diagnostic test were ordered, analyzed, and reviewed by me: Yes Radiological Interpretation: Interpreted by me - Risk of complications Minimal Risk: Minimal risk of morbidity - Departure Departure Disposition: Home Clinical Impression: Strain of right hip Condition: Stable Critical Care Time: No Referrals: TOM AGUILAR MD [Primary Care Provider] - Follow up/PCP as directed Prescriptions: Hydrocodone/Acetaminophen [Hydrocodone-Acetamin 5-325 mg] 1 tab PO Q6HPRN PRN #14 tablet MDD 4 PRN Reason: Pain
[2024-06-10 18:04] VITALS: O2SAT 96
[2024-06-10 19:07] VITALS: BP 173/93
--- NOTE | 2024-06-11 08:38 | XRAY ---
Indication: Pain. No acute injury. Comparison: None 2 view right hip demonstrates osteopenia, total hip arthroplasty with intact bipolar prosthesis/acetabular screw, incompletely visualized lower lumbar fusion/laminectomy with moderate degenerative spondylosis, mild scattered vascular calcifications, and pelvic floor surgical clips. No other bony, articular, or soft tissue abnormalities. Impression: Nonacute right hip with chronic features.
== END 2024-06-10 19:08 | disposition home or self-care (01) ==
LOC: ED 15:51
DX: S76.011A Strain of muscle, fascia and tendon of right hip, initial encounter (principal); I10 Essential (primary) hypertension; Z79.891 Long term (current) use of opiate analgesic; Z79.899 Other long term (current) drug therapy
CPT/HCPCS: 73502; 99283

== ENCOUNTER 2025-05-27 10:55 | Observation (INO) | payer MEDICARE ==
--- NOTE | 2025-05-27 11:18 | ERPHSYRPT ---
- History of Present Illness Time Seen by Provider: 05/27/25 11:00 Source: patient Exam Limitations: no limitations Patient Subjective Stated Complaint: patient was jose in by EMS he was seen yesterday and received his flu and covid vaccine according to , and he started running low grade fever last nite nad still running this morning , no tylenol or ibuprofen given at home Triage Nursing Assessment: pt presentes to ED today by ambulance for fever. He was given vaccines yesterday and then began running a fever a few hours after, patient is alert and orientedx4, needs assistance x2, skin warm to touch and dry . IV was placed by EMS to left hand 20 romaine. Physician History: Patient is an 79-year-old male history of Alzheimer's disease peripheral neuropathy, cataract, glaucoma, angina, hypertension, prostate problems, arthritis, GERD, hernia, renal disease presents to our ED via EMS for evaluation of a fever. EMS reports that patient had his flu and COVID-vaccine yesterday. observed patient had a low-grade fever last night into this morning. So she called 911 for an evaluation. No antipyretics were administered. Patient denies pain. No nausea no vomiting no diarrhea no rash. Patient voices no other complaints or concerns at this time. Portions of this note were created with voice recognition technology. There may be grammatical, spelling, punctuation or sound alike errors History obtained from patient, EMS and who was at the bedside Differential diagnosis includes pyelonephritis, viral infection, sepsis Timing/Duration: yesterday Fever Severity: moderate Fever Therapy SHOP LEAD: none Associated Symptoms: denies symptoms Allergies/Adverse Reactions: potassium [Potassium] Adverse Reaction (Intermediate, Verified 03/04/25 23:55) states feels hot flashes,states a presc. of it was making him itch,hot Home Medications: lamoTRIgine [Lamictal] 150 mg PO BID 08/03/14 [History] Latanoprost [Xalatan] 1 drop OP QHS 04/27/16 [History] Lorazepam 1 mg [Ativan 1 MG] 1 mg PO Q8H PRN PRN 05/12/24 [History] Melatonin/Pyridoxine [Melatonin 5 mg Tablet] 5 mg PO HS 05/12/24 [History] Omeprazole 40 mg PO DAILY 05/12/24 [History] Timolol Maleate 0.5% Eye [Timoptic 0.5% 5 ml Ophthalmic] 1 drop DROPS BID 05/12/24 [History] Gabapentin [Neurontin ] 800 mg PO TID 06/03/24 [History] Nitroglycerin 0.4 mg Tablet [Nitrostat 0.4 MG Tablet] 1 tab SL QIDPRN PRN 05/27/25 [History] Hx Tetanus, Diphtheria Vaccination/Date Given: Yes Hx Influenza Vaccination/Date Given: Yes Hx Pneumococcal Vaccination/Date Given: Yes Travel Risk - International Travel Have you traveled outside of the country in past 3 weeks: No - Emerging Infectious Disease Are you exhibiting symptoms associated with any current EIDs: No Symptoms: Other (Please Comment) Comment: weakness h/o UTI - Review of Systems All Other Systems: Reviewed and Negative - Past Medical History Pertinent Past Medical History: Yes Neurological History: Alzheimer's Disease, Peripheral Neuropathy, Other ENT History: Cataracts, Glaucoma Cardiac History: Angina, Hypertension Respiratory History: No Pertinent History Endocrine Medical History: No Pertinent History Musculoskeletal History: Arthritis GI Medical History: GERD, Gallbladder Disease, Hernia History: Renal Disease Psycho-Social History: Anxiety Male Reproductive Disorders: Prostate Problems Other Medical History: Kidney sclerosis, insomnia, UTI - Past Surgical History Past Surgical History: Yes Neuro Surgical History: No Pertinent History Cardiac: No Pertinent History Respiratory: No Pertinent History Gastrointestinal: Hernia Repair Genitourinary: No Pertinent History Musculoskeletal: Joint Replacement, Orthopedic Surgery Male Surgical History: Prostate Surgery Other Surgical History: bilateral lens implant, bilateral hip replacement, back Significant Family History: no pertinent family hx - Social History Smoking Status: Never smoker Exposure to second hand smoke: No Drug Use: none - Social Determinants of Health Will the patient participate in the screening: Yes Do you worry about a steady place to live?: No Do you have any problems with any of the following?: No known problems In the past 12 months,have you had to go without utilities?: No Transportation Issues: No Has anyone in your support network made you feel unsafe?: No Have you or anyone in your house had to go w/o enough food: No - Nursing Vital Signs Nursing Vital Signs: Initial Vital Signs Temperature 100.8 F 05/27/25 10:56 Pulse Rate 108 H 05/27/25 10:56 Respiratory Rate 20 05/27/25 10:56 Blood Pressure 174/88 05/27/25 10:56 O2 Sat by Pulse Oximetry 95 05/27/25 10:56 Pain Scale Pain Intensity 7 - Physical Exam General Appearance: no apparent distress, alert, other (Cervical spasmodic torticollis/chronic. Patient is warm to touch) Eye Exam: PERRL/EOMI ENT Exam: normal ENT inspection, No pharyngeal erythema, No tonsillar exudate Neck Exam: supple, full range of motion, No meningismus Respiratory Exam: normal breath sounds, lungs clear, no respiratory distress Cardiovascular/Chest Exam: normal heart sounds, regular rate/rhythm, No murmur, No edema Gastrointestinal/Abdominal Exam: soft, non tender, no distention Extremity Exam: non-tender, normal range of motion, normal inspection, normal capillary refill Neurologic Exam: alert, cooperative, system trainer II-XII nml as tested, normal mood/affect, sensation nml, No motor deficits Skin Exam: normal color, warm, dry, other (Skin warm to touch), No rash SpO2 Interpretation: normal SpO2: 95 O2 Delivery: Room Air - Course Nursing assessment & vital signs reviewed: Yes EKG Interpreted by Me: RATE (103), Sinus Tach, NORMAL AXIS, NORMAL INTERVALS, Right Bundle Branch Block - Radiology Exams Chest X-ray Interpretation: Teleradiologist Report (No acute findings on chest x-ray) Ordered Tests: Active Orders 24 hr Category Date Time Status Speech And Drama Teacher STAT Care 05/27/25 11:09 Active EKG-ER Only STAT Care 05/27/25 11:07 Active IV Insertion STAT Care 05/27/25 11:07 Active Pulse Oximetry (ED) STAT Care 05/27/25 11:07 Active CHEST 1 VIEW (PORTABLE) Stat Exams 05/27/25 11:09 Completed BLOOD CULTURE Stat Lab 05/27/25 11:45 Received CBC W DIFF Stat Lab 05/27/25 11:45 Completed CMP Stat Lab 05/27/25 11:45 Completed CULTURE,URINE Stat Lab 05/27/25 11:08 Received Lactic Acid Stat Lab 05/27/25 11:07 Completed UA W/RFX UR CULTURE Stat Lab 05/27/25 11:08 Completed Transfer Order Routine Transfer 05/27/25 Ordered Medication Summary Generic Name Dose Route Start Last Admin Trade Name Freq PRN Reason Stop Dose Admin Sodium Chloride 1,000 mls @ 100 mls/hr 05/27/25 11:15 05/27/25 11:38 Sodium Chloride 0.9% 1000 Ml IV 06/26/25 11:14 100 mls/hr .Q10H WILLARD Administration Ceftriaxone Sodium 1 gm in 100 mls @ 200 mls/hr 05/27/25 16:15 Rocephin 1 Gm / 100 Ml Nacl IV 05/27/25 16:44 STAT ONE Discontinued Medications Generic Name Dose Route Start Last Admin Trade Name Freq PRN Reason Stop Dose Admin Acetaminophen 975 mg 05/27/25 11:07 05/27/25 11:37 Acetaminophen 325 Mg Tablet PO 05/27/25 11:08 975 mg STAT STA Administration Acetaminophen Confirm 05/27/25 11:35 Acetaminophen 325 Mg Tablet Administered 05/27/25 11:36 Dose 975 mg .ROUTE .STK-MED ONE Ibuprofen 600 mg 05/27/25 11:07 05/27/25 11:38 Ibuprofen 600 Mg Tablet PO 05/27/25 11:08 600 mg STAT STA Administration Ibuprofen Confirm 05/27/25 11:35 Ibuprofen 600 Mg Tablet Administered 05/27/25 11:36 Dose 600 mg .ROUTE .STK-MED ONE Lab/Rad Data: Laboratory Result Diagrams 05/27/25 11:45 05/27/25 11:45 Laboratory Results 05/27/25 05/27/25 05/27/25 Range/Units 11:45 11:45 11:45 WBC 6.3 (4.23-9.07) x10^3/uL RBC 4.47 L (4.63-6.08) x10^6/uL Hgb 14.2 (13.7-17.5) g/dL Hct 44.8 (40.1-51.0) % MCV 100.2 H (79.0-92.2) fL MCH 31.8 (25.7-32.2) pg MCHC 31.7 L (32.3-36.5) g/dL RDW 13.3 (11.6-14.4) % Plt Count 168 (163-337) x10^3/uL MPV 9.2 L (9.4-12.4) fL Gran % 86.4 H (34.0-67.9) % Immature Gran % (Auto) 0.3 (0.001-0.429) % Nucleat RBC Rel Count 0.0 (0.00-0.2) % Eos # (Auto) 0.04 (0.04-0.54) x10^3/uL Immature Gran # (Auto) 0.02 (0.001-0.031) x10^3u/L Absolute Lymphs (auto) 0.34 L (1.32-3.57) x10^3/uL Absolute Monos (auto) 0.44 (0.30-0.82) x10^3/uL Absolute Nucleated RBC 0.00 (0.00-0.012) x10^3u/L Lymphocytes % 5.4 L (21.8-53.1) % Monocytes % 7.0 (5.3-12.2) % Eosinophils % 0.6 L (0.8-7.0) % Basophils % 0.3 (0.2-1.2) % Absolute Granulocytes 5.43 H (1.78-5.38) x10^3/uL Basophils # 0.02 (0.01-0.08) x10^3/uL Sodium 135 (135-145) mmol/L Potassium 5.0 (3.5-5.1) mmol/L Chloride 103 (98-107) mmol/L Carbon Dioxide 25 (22-30) mmol/L Anion Gap 11.2 (5-15) MEQ/L BUN 22 H (9-20) mg/dL Creatinine 1.80 H (0.66-1.25) mg/dL Estimated GFR 37.6 ML/MIN Glucose 106 (74-106) mg/dL Lactic Acid (0.4-2.0) Calcium 9.6 (8.4-10.2) mg/dL Total Bilirubin 0.50 (0.2-1.3) mg/dL AST 32 (17-59) U/L ALT 17 (0-50) U/L Alkaline Phosphatase 79 (38-126) U/L Serum Total Protein 7.9 (6.3-8.2) g/dL Albumin 4.1 (3.5-5.0) g/dL Urine Color (Yellow) Urine Appearance (Clear) Urine pH (4.6-8.0) Ur Specific Rudd (1.005-1.030) Urine Protein (Negative) Urine Glucose (UA) (Negative) mg/dL Urine Ketones (Negative) Urine Blood (Negative) Urine Nitrite (Negative) Urine Bilirubin (Negative) Urine Urobilinogen (0.2) mg/dL Ur Leukocyte Esterase (Negative) U Hyaline Cast (Auto) (0-2) /LPF Urine Microscopic RBC (0-5) /HPF Urine Microscopic WBC (0-5) /HPF Ur Epithelial Cells (None Seen) /HPF Amorphous Crystals (None Seen) /HPF Urine Bacteria (None Seen) /HPF Urine Culture Reflexed (NO) Influenza Type A Ag NEGATIVE (NEGATIVE) Influenza Type B Ag NEGATIVE (NEGATIVE) RSV (PCR) NEGATIVE (NEGATIVE) SARS-CoV-2 (PCR) NEGATIVE (NEGATIVE) Slides for Path Review YES 05/27/25 05/27/25 Range/Units 11:08 11:07 WBC (4.23-9.07) x10^3/uL RBC (4.63-6.08) x10^6/uL Hgb (13.7-17.5) g/dL Hct (40.1-51.0) % MCV (79.0-92.2) fL MCH (25.7-32.2) pg MCHC (32.3-36.5) g/dL RDW (11.6-14.4) % Plt Count (163-337) x10^3/uL MPV (9.4-12.4) fL Gran % (34.0-67.9) % Immature Gran % (Auto) (0.001-0.429) % Nucleat RBC Rel Count (0.00-0.2) % Eos # (Auto) (0.04-0.54) x10^3/uL Immature Gran # (Auto) (0.001-0.031) x10^3u/L Absolute Lymphs (auto) (1.32-3.57) x10^3/uL Absolute Monos (auto) (0.30-0.82) x10^3/uL Absolute Nucleated RBC (0.00-0.012) x10^3u/L Lymphocytes % (21.8-53.1) % Monocytes % (5.3-12.2) % Eosinophils % (0.8-7.0) % Basophils % (0.2-1.2) % Absolute Granulocytes (1.78-5.38) x10^3/uL Basophils # (0.01-0.08) x10^3/uL Sodium (135-145) mmol/L Potassium (3.5-5.1) mmol/L Chloride (98-107) mmol/L Carbon Dioxide (22-30) mmol/L Anion Gap (5-15) MEQ/L BUN (9-20) mg/dL Creatinine (0.66-1.25) mg/dL Estimated GFR ML/MIN Glucose (74-106) mg/dL Lactic Acid 1.3 (0.4-2.0) Calcium (8.4-10.2) mg/dL Total Bilirubin (0.2-1.3) mg/dL AST (17-59) U/L ALT (0-50) U/L Alkaline Phosphatase (38-126) U/L Serum Total Protein (6.3-8.2) g/dL Albumin (3.5-5.0) g/dL Urine Color Yellow (Yellow) Urine Appearance Clear (Clear) Urine pH 7.5 (4.6-8.0) Ur Specific Rudd 1.015 (1.005-1.030) Urine Protein Trace A (Negative) Urine Glucose (UA) Negative (Negative) mg/dL Urine Ketones Trace A (Negative) Urine Blood Negative (Negative) Urine Nitrite Positive A (Negative) Urine Bilirubin Negative (Negative) Urine Urobilinogen 0.2 (0.2) mg/dL Ur Leukocyte Esterase Trace A (Negative) U Hyaline Cast (Auto) NONE SEEN (0-2) /LPF Urine Microscopic RBC 6-10 A (0-5) /HPF Urine Microscopic WBC 11-20 A (0-5) /HPF Ur Epithelial Cells None Seen (None Seen) /HPF Amorphous Crystals Moderate A (None Seen) /HPF Urine Bacteria Few A (None Seen) /HPF Urine Culture Reflexed YES (NO) Influenza Type A Ag (NEGATIVE) Influenza Type B Ag (NEGATIVE) RSV (PCR) (NEGATIVE) SARS-CoV-2 (PCR) (NEGATIVE) Slides for Path Review - Progress Progress: improved Progress Note: Dr. Martinez independently reviewed and interpreted chest x-ray. No acute findings. Formal read confirms no acute findings on today's chest x-ray. 05/27/25 12:04 Patient is an 79-year-old male history of Alzheimer's disease peripheral neuropathy, cataract, glaucoma, angina, hypertension, prostate problems, arthritis, GERD, hernia, renal disease presents to our ED via EMS for evaluation of a fever. Physical exam patient is warm to touch. Patient has a chronic spasmodic torticollis. Otherwise unremarkable. Workup reveals a urinary tract infection. In light of patient's fever patient experiencing pyelonephritis. Patient received a gram Rocephin in our ED. IV fluids infusing. Patient will require hospitalization for further evaluation and treatment. Case discussed with hospitalist Dr. Rosen who accepts admission to observation at 4:02 PM. Plan of care discussed with patient and his who is at the bedside. They agree to admission at [facility] for further evaluation and treatment. Portions of this note were created with voice recognition technology. There may be grammatical, spelling, punctuation or sound alike errors Differential diagnosis includes sepsis, urinary tract infection, pyelonephritis, viral infection I considered administering pain medication but patient denied pain and declined pain medication. History obtained from patient and his and EMS. Complexity of problem addressed is moderate acute complicated. No critical care time. Complex of data reviewed and analyzed is extensive. Test ordered, results interpreted and reviewed. Management discussed with hospitalist who accepts admission to observation. Risk of complication and or risk of morbidity/mortality of patient management is high. Patient requires hospitalization for further evaluation and treatment. Vital stable. Time spent admit patient is approximately 15 minutes. Plan of care established for shared decision making. No social determinants of health present to impede follow-up. Portions of this note were created with voice recognition technology. There may be grammatical, spelling, punctuation or sound alike errors 05/27/25 16:17 Counseled pt/family regarding: lab results, diagnosis, rad results - Departure Departure Disposition: Observation Clinical Impression: Fever, Acute renal injury, Pyelonephritis, Urinary tract infection, Dehydration Condition: Stable Critical Care Time: No Referrals: TOM AGUILAR MD [Primary Care Provider, [facility]] - Follow up/PCP as directed
[2025-05-27] MEDS ORDERED: TYLENOL 325 MG ONE (11:35)
[2025-05-27] MEDS ORDERED: MOTRIN 600 MG ONE (11:35)
[2025-05-27] MEDS: TYLENOL 325 MG PO STA (11:37)
[2025-05-27] MEDS: MOTRIN 600 MG PO STA (11:38)
--- NOTE | 2025-05-27 11:39 | XRAY ---
Indication: Fever. Comparison: October 21, 2024 Portable chest again demonstrates chronic right hemidiaphragm elevation with adjacent subsegmental atelectasis. New minimal left base subsegmental atelectasis/scarring. Remaining heart and lungs unremarkable. Bony thorax intact again with osteopenia and mild degenerative changes. No acute findings.
[2025-05-27 11:54] LABS: BASOPHIL % 0.3 % (0.2-1.2); Basophil (Absolute #) 0.02 x10^3/uL (0.01-0.08); Eosinophil (Absolute #) 0.04 x10^3/uL (0.04-0.54); Hematocrit 44.8 % (40.1-51.0); Hemoglobin 14.2 g/dL (13.7-17.5); IMMATURE GRAN # 0.02 x10^3u/L (0.001-0.031); IMMATURE GRAN % 0.3 % (0.001-0.429); Lymphocyte (Absolute #) 0.34 x10^3/uL (1.32-3.57); Mean Corpuscular Hemoglobin 31.8 pg (25.7-32.2); Mean Corpuscular Hgb Concent. 31.7 g/dL (32.3-36.5); Monocyte (Absolute #) 0.44 x10^3/uL (0.30-0.82); NUCLEATED RBC # 0.00 x10^3u/L (0.00-0.012); NUCLEATED RBC % 0.0 % (0.00-0.2); Platelet Count 168 x10^3/uL (163-337); Red Blood Count 4.47 x10^6/uL (4.63-6.08); White Blood Count 6.3 x10^3/uL (4.23-9.07)
[2025-05-27 12:08] LABS: Calcium 9.6 mg/dL (8.4-10.2); Carbon Dioxide 25.0 mmol/L (22-30); Creatinine 1 1.8 mg/dL (0.66-1.25); EST GLOMERULAR FILTRATION RATE 37.6 ML/MIN; Glucose 106.0 mg/dL (74-106); Potassium 5.0 mmol/L (3.5-5.1); SGOT/AST 32.0 U/L (17-59); SGPT/ALT 17.0 U/L (0-50); Total Protein 7.9 g/dL (6.3-8.2)
[2025-05-27 12:44] LABS: Glucose, Urine Negative (Negative); Protein,Urine Dip Trace (Negative)
[2025-05-27 12:45] LABS: Amourphous Crystal Moderate /HPF (None Seen)
[2025-05-27 12:48] LABS: Slide Review 1 YES
[2025-05-27 12:55] LABS: INFLUENZA A NEGATIVE (NEGATIVE); INFLUENZA B NEGATIVE (NEGATIVE); RESPIRATORY SYNCTIAL VIRUS NEGATIVE (NEGATIVE); SARS-CoV-2 Xpert Express NEGATIVE (NEGATIVE)
[2025-05-27] MEDS ORDERED: ROCEPHIN 1 GM / 100 ML NaCl 1 GM/100 ML IVPB IV ONE (16:30)
[2025-05-27] MEDS: ROCEPHIN 1 GM / 100 ML NaCl 1 GM/100 ML IVPB IV ONE (16:31)
--- NOTE | 2025-05-27 17:06 | PCM.HP ---
History of Present Illness - Chief Complaint Chief Complaint: UTI, pyelonephritis Date: 05/27/25 History of Present Illness: is a 79 year old male with history of Alzheimers disease, peripheral neuropathy, cataracts, glaucoma, angina, hypertension, prostate disease, arthritis, GERD, and chronic kidney disease presented 05/27/25 with low-grade fever. He received both COVID and influenza vaccines the day prior and developed fever a few hours later. Patient also reports dysuria which he states he has had for a few weeks. On arrival, T 100.8 F, HR 108, BP 174/88. EKG: sinus tachycardia with right bundle branch block, normal intervals. Chest x-ray: no acute findings. Labs: WBC 6.3, lactic acid normal. CMP notable for BUN 22, creatinine 1.8 (baseline 1.31.4). UA: positive nitrites, trace leukocytes. Respiratory viral panel negative. He received ibuprofen, acetaminophen, ceftriaxone, and IV fluids in ED. Blood and urine cultures pending. - Review of Systems Constitutional: Fever, Chills, Weakness Eyes: No Symptoms Ears, Nose, & Throat: No Symptoms Respiratory: No Symptoms Cardiac: No Symptoms Abdominal/Gastrointestinal: No Symptoms Genitourinary Symptoms: Dysuria, Urinary Retention Musculoskeletal: No Symptoms Neurological: No Symptoms Psychological: No Symptoms Endocrine: No Symptoms Hematologic/Lymphatic: No Symptoms Immunological/Allergic: No Symptoms Medications & Allergies Home Medications: Home Medication List lamoTRIgine [Lamictal] 150 mg PO BID 08/03/14 [History Confirmed 05/27/25] Latanoprost [Xalatan] 1 drop OP QHS 04/27/16 [History Confirmed 05/27/25] Lorazepam 1 mg [Ativan 1 MG] 1 mg PO Q8H PRN PRN 05/12/24 [History Confirmed 05/27/25] Melatonin/Pyridoxine [Melatonin 5 mg Tablet] 5 mg PO HS 05/12/24 [History Confirmed 05/27/25] Omeprazole 40 mg PO DAILY 05/12/24 [History Confirmed 05/27/25] Timolol Maleate 0.5% Eye [Timoptic 0.5% 5 ml Ophthalmic] 1 drop DROPS BID 05/12/24 [History Confirmed 05/27/25] Gabapentin [Neurontin ] 800 mg PO TID 06/03/24 [History Confirmed 05/27/25] Amlodipine Besylate 5 mg [Norvasc 5 mg] 7.5 mg PO QAM 30 Days #30 tablet 06/08/24 [Rx Confirmed 05/27/25] Nitroglycerin 0.4 mg Tablet [Nitrostat 0.4 MG Tablet] 1 tab SL QIDPRN PRN 05/27/25 [History Confirmed 05/27/25] Allergies/Adverse Reactions: Allergies Allergy/AdvReac Type Severity Reaction Status Date / Time potassium [Potassium] AdvReac Intermediate Verified 03/04/25 23:55 - Past Medical History Past Medical History: Yes Neurological History: Alzheimer's Disease, Peripheral Neuropathy, Other ENT History: Cataracts, Glaucoma Cardiac History: Angina, Hypertension Respiratory History: No Pertinent History Endocrine Medical History: No Pertinent History Musculoskelatal History: Arthritis GI Medical History: GERD, Gallbladder Disease, Hernia History: Renal Disease Pyscho-Social History: Anxiety Male Reproductive Disorders: Prostate Problems Comment: Kidney sclerosis, insomnia, UTI - Past Surgical History Past Surgical History: Yes Neuro Surgical History: No Pertinent History Cardiac History: No Pertinent History Respiratory Surgery: No Pertinent History GI Surgical History: Hernia Repair Genitourinary Surgical Hx: No Pertinent History Musculskeletal Surgical Hx: Joint Replacement, Orthopedic Surgery Male Surgical History: Prostate Surgery Other Surgical History: bilateral lens implant, bilateral hip replacement, back Significant Family History: heart disease, cancer - Social History Smoking Status: Never smoker Exposure to second hand smoke: No Alcohol: None Drug Use: none - Social Determinants of Health Will the patient participate in the screening: Yes Do you worry about a steady place to live?: No Do you have any problems with any of the following?: No known problems In the past 12 months,have you had to go without utilities?: No Have you or anyone in your house had to go without enough: No Transportation Issues: No Has anyone in your support network made you feel unsafe?: No Does the patient want assistance with any of the above?: No - Physical Exam Vital Signs: Vital Signs - 24 hr Temp Pulse Resp BP BP Pulse Ox 05/27/25 16:24 95 05/27/25 16:20 99 F 78 22 143/88 96 05/27/25 16:00 77 21 143/88 96 05/27/25 15:30 75 19 147/78 98 05/27/25 15:00 85 14 147/75 97 05/27/25 14:30 79 24 146/81 05/27/25 14:00 88 27 H 144/77 144/77 98 05/27/25 13:30 86 24 148/84 05/27/25 13:00 94 H 26 H 146/79 146/79 95 05/27/25 12:30 94 H 31 H 160/81 95 05/27/25 12:00 101.3 F 99 H 33 H 154/78 154/78 97 05/27/25 11:46 101.3 F 05/27/25 11:30 100 H 30 H 182/95 95 05/27/25 11:07 95 05/27/25 11:01 101 H 38 H 174/88 95 05/27/25 10:56 100.8 F 108 H 20 174/88 95 General Appearance: no apparent distress Neurologic Exam: alert, oriented x 3, cooperative Eye Exam: PERRL/EOMI Ears, Nose, Throat Exam: normal ENT inspection Neck Exam: normal inspection Respiratory Exam: normal breath sounds, lungs clear Cardiovascular Exam: regular rate/rhythm, normal heart sounds Rectal Exam: deferred Back Exam: normal inspection Extremity Exam: normal inspection Skin Exam: normal color Results - Labs Lab/Micro Results: Lab Results-Last 24 Hours 05/27/25 05/27/25 05/27/25 Range/Units 11:07 11:08 11:45 WBC 6.3 (4.23-9.07) x10^3/uL RBC 4.47 L (4.63-6.08) x10^6/uL Hgb 14.2 (13.7-17.5) g/dL Hct 44.8 (40.1-51.0) % MCV 100.2 H (79.0-92.2) fL MCH 31.8 (25.7-32.2) pg MCHC 31.7 L (32.3-36.5) g/dL RDW 13.3 (11.6-14.4) % Plt Count 168 (163-337) x10^3/uL MPV 9.2 L (9.4-12.4) fL Gran % 86.4 H (34.0-67.9) % Immature Gran % (Auto) 0.3 (0.001-0.429) % Nucleat RBC Rel Count 0.0 (0.00-0.2) % Eos # (Auto) 0.04 (0.04-0.54) x10^3/uL Immature Gran # (Auto) 0.02 (0.001-0.031) x10^3u/L Absolute Lymphs (auto) 0.34 L (1.32-3.57) x10^3/uL Absolute Monos (auto) 0.44 (0.30-0.82) x10^3/uL Absolute Nucleated RBC 0.00 (0.00-0.012) x10^3u/L Lymphocytes % 5.4 L (21.8-53.1) % Monocytes % 7.0 (5.3-12.2) % Eosinophils % 0.6 L (0.8-7.0) % Basophils % 0.3 (0.2-1.2) % Absolute Granulocytes 5.43 H (1.78-5.38) x10^3/uL Basophils # 0.02 (0.01-0.08) x10^3/uL Sodium (135-145) mmol/L Potassium (3.5-5.1) mmol/L Chloride (98-107) mmol/L Carbon Dioxide (22-30) mmol/L Anion Gap (5-15) MEQ/L BUN (9-20) mg/dL Creatinine (0.66-1.25) mg/dL Estimated GFR ML/MIN Glucose (74-106) mg/dL Lactic Acid 1.3 (0.4-2.0) Calcium (8.4-10.2) mg/dL Total Bilirubin (0.2-1.3) mg/dL AST (17-59) U/L ALT (0-50) U/L Alkaline Phosphatase (38-126) U/L Serum Total Protein (6.3-8.2) g/dL Albumin (3.5-5.0) g/dL Urine Color Yellow (Yellow) Urine Appearance Clear (Clear) Urine pH 7.5 (4.6-8.0) Ur Specific Dunbar 1.015 (1.005-1.030) Urine Protein Trace A (Negative) Urine Glucose (UA) Negative (Negative) mg/dL Urine Ketones Trace A (Negative) Urine Blood Negative (Negative) Urine Nitrite Positive A (Negative) Urine Bilirubin Negative (Negative) Urine Urobilinogen 0.2 (0.2) mg/dL Ur Leukocyte Esterase Trace A (Negative) U Hyaline Cast (Auto) NONE SEEN (0-2) /LPF Urine Microscopic RBC 6-10 A (0-5) /HPF Urine Microscopic WBC 11-20 A (0-5) /HPF Ur Epithelial Cells None Seen (None Seen) /HPF Amorphous Crystals Moderate A (None Seen) /HPF Urine Bacteria Few A (None Seen) /HPF Urine Culture Reflexed YES (NO) Influenza Type A Ag (NEGATIVE) Influenza Type B Ag (NEGATIVE) RSV (PCR) (NEGATIVE) SARS-CoV-2 (PCR) (NEGATIVE) Slides for Path Review YES 05/27/25 05/27/25 Range/Units 11:45 11:45 WBC (4.23-9.07) x10^3/uL RBC (4.63-6.08) x10^6/uL Hgb (13.7-17.5) g/dL Hct (40.1-51.0) % MCV (79.0-92.2) fL MCH (25.7-32.2) pg MCHC (32.3-36.5) g/dL RDW (11.6-14.4) % Plt Count (163-337) x10^3/uL MPV (9.4-12.4) fL Gran % (34.0-67.9) % Immature Gran % (Auto) (0.001-0.429) % Nucleat RBC Rel Count (0.00-0.2) % Eos # (Auto) (0.04-0.54) x10^3/uL Immature Gran # (Auto) (0.001-0.031) x10^3u/L Absolute Lymphs (auto) (1.32-3.57) x10^3/uL Absolute Monos (auto) (0.30-0.82) x10^3/uL Absolute Nucleated RBC (0.00-0.012) x10^3u/L Lymphocytes % (21.8-53.1) % Monocytes % (5.3-12.2) % Eosinophils % (0.8-7.0) % Basophils % (0.2-1.2) % Absolute Granulocytes (1.78-5.38) x10^3/uL Basophils # (0.01-0.08) x10^3/uL Sodium 135 (135-145) mmol/L Potassium 5.0 (3.5-5.1) mmol/L Chloride 103 (98-107) mmol/L Carbon Dioxide 25 (22-30) mmol/L Anion Gap 11.2 (5-15) MEQ/L BUN 22 H (9-20) mg/dL Creatinine 1.80 H (0.66-1.25) mg/dL Estimated GFR 37.6 ML/MIN Glucose 106 (74-106) mg/dL Lactic Acid (0.4-2.0) Calcium 9.6 (8.4-10.2) mg/dL Total Bilirubin 0.50 (0.2-1.3) mg/dL AST 32 (17-59) U/L ALT 17 (0-50) U/L Alkaline Phosphatase 79 (38-126) U/L Serum Total Protein 7.9 (6.3-8.2) g/dL Albumin 4.1 (3.5-5.0) g/dL Urine Color (Yellow) Urine Appearance (Clear) Urine pH (4.6-8.0) Ur Specific Dunbar (1.005-1.030) Urine Protein (Negative) Urine Glucose (UA) (Negative) mg/dL Urine Ketones (Negative) Urine Blood (Negative) Urine Nitrite (Negative) Urine Bilirubin (Negative) Urine Urobilinogen (0.2) mg/dL Ur Leukocyte Esterase (Negative) U Hyaline Cast (Auto) (0-2) /LPF Urine Microscopic RBC (0-5) /HPF Urine Microscopic WBC (0-5) /HPF Ur Epithelial Cells (None Seen) /HPF Amorphous Crystals (None Seen) /HPF Urine Bacteria (None Seen) /HPF Urine Culture Reflexed (NO) Influenza Type A Ag NEGATIVE (NEGATIVE) Influenza Type B Ag NEGATIVE (NEGATIVE) RSV (PCR) NEGATIVE (NEGATIVE) SARS-CoV-2 (PCR) NEGATIVE (NEGATIVE) Slides for Path Review - Radiology Impressions Radiology Exams & Impressions: Radiology Procedures Category Date Time Status CHEST 1 VIEW (PORTABLE) Stat Exams 05/27/25 11:09 Completed Assessment/Plan (1) UTI (urinary tract infection) Current Visit: Yes Status: Acute Assessment & Plan: - UA positive for nitrites and leukocytes -Continue IV ceftriaxone pending culture results; de-escalate or adjust based on sensitivities -Monitor for clinical response; follow repeat vitals and urine output -CBC unremarkable Code(s): N39.0 - URINARY TRACT INFECTION, SITE NOT SPECIFIED (2) Acute kidney injury superimposed on chronic kidney disease Current Visit: Yes Status: Acute Assessment & Plan: -Baseline Cr 1.31.4; admission Cr 1.8 suggests JEAN MARIE, likely prerenal from infection and possible dehydration. -Continue gentle IV hydration with close monitoring given age and comorbidities. -Avoid nephrotoxic medications (NSAIDs, IV contrast). -Daily CMP to trend renal function -Renal dose medications Code(s): N17.9 - ACUTE KIDNEY FAILURE, UNSPECIFIED; N18.9 - CHRONIC KIDNEY DISEASE, UNSPECIFIED (3) Alzheimer disease Current Visit: Yes Status: Acute Assessment & Plan: -Supportive management, continue home medications as tolerated. -Monitor for delirium in setting of infection. Code(s): G30.9 - ALZHEIMER'S DISEASE, UNSPECIFIED; F02.80 - DEM IN OTH DIS CLASSD ELSWHR,UNSP SEV,W/O BEH/PSYCH/MOOD/ANX (4) BPH (benign prostatic hyperplasia) Current Visit: No Status: Chronic Assessment & Plan: -continue finesteride -PVR -monitor I&O closely Code(s): N40.0 - BENIGN PROSTATIC HYPERPLASIA WITHOUT LOWER URINRY TRACT SYMP (5) HTN (hypertension) Current Visit: No Status: Chronic Assessment & Plan: -Admission BP 143/88. May be stress-related but requires monitoring. -Resume home antihypertensives if renal function and hemodynamics permit. Code(s): I10 - ESSENTIAL (PRIMARY) HYPERTENSION (6) GERD (gastroesophageal reflux disease) Current Visit: Yes Status: Acute Assessment & Plan: -Continue chronic medications as tolerated. -Supportive care; coordinate with pharmacy to ensure safe dosing with renal impairment. VTE: Lovenox PPI: protonix Dispo: 1-2 days Code status: Full code Plan of care time spent > 40 mins Code(s): K21.9 - GASTRO-ESOPHAGEAL REFLUX DISEASE WITHOUT ESOPHAGITIS Telemedicine Encounter - Telemedicine Encounter Telemedicine Encounter: "The entirety of this encounter was performed via Telemedicine" This visit was performed using real-time audio and video connection between my location and thepatients locationwith the assistance of a surrogateat the patients location. Written or verbal consent was obtained from the patient/guardian to perform this visit using[facility] [place] technology. Any patient questions regarding the telemedicine interaction were answered.
[2025-05-27] MEDS ORDERED: Zofran 4 MG/2 ML VIAL IV PRN (17:11)
[2025-05-27] MEDS ORDERED: Ativan 1 MG PO PRN (22:37)
[2025-05-27] MEDS ORDERED: Nitrostat 0.4 MG Tablet SL PRN (22:37)
[2025-05-27] MEDS ORDERED: Flomax 0.4 MG ONE (23:38)
[2025-05-27] MEDS: NEURONTIN PO SCH (23:40)
[2025-05-27] MEDS: Flomax 0.4 MG PO SCH (23:40)
--- NOTE | 2025-05-28 05:26 | PCM.NOTE ---
Date and Time: 05/28/25525 Subjective Assessment: is a 79 year old male with history of Alzheimers disease, peripheral neuropathy, cataracts, glaucoma, angina, hypertension, prostate disease, arthritis, GERD, and chronic kidney disease presented 05/27/25 with low-grade fever. He received both COVID and influenza vaccines the day prior and developed fever a few hours later. Patient also reports dysuria which he states he has had for a few weeks. On arrival, T 100.8 F, HR 108, BP 174/88. EKG: sinus tachycardia with right bundle branch block, normal intervals. Chest x-ray: no acute findings. Labs: WBC 6.3, lactic acid normal. CMP notable for BUN 22, creatinine 1.8 (baseline 1.31.4). UA: positive nitrites, trace leukocytes. Respiratory viral panel negative. He received ibuprofen, acetaminophen, ceftriaxone, and IV fluids in ED. Blood and urine cultures pending. Objective Data Vital Signs: Vital Signs - 24 hr Temp Pulse Resp BP BP Pulse Ox 05/28/25 04:00 99.7 F 91 H 18 177/84 95 05/28/25 00:00 97.9 F 87 16 94 L 05/27/25 20:00 97.6 F 70 18 179/84 94 L 05/27/25 18:00 99.0 F 78 20 143/88 95 05/27/25 16:24 95 05/27/25 16:20 99 F 78 22 143/88 96 05/27/25 16:00 77 21 143/88 96 05/27/25 15:30 75 19 147/78 98 05/27/25 15:00 85 14 147/75 97 05/27/25 14:30 79 24 146/81 05/27/25 14:00 88 27 H 144/77 144/77 98 05/27/25 13:30 86 24 148/84 05/27/25 13:00 94 H 26 H 146/79 146/79 95 05/27/25 12:30 94 H 31 H 160/81 95 05/27/25 12:00 101.3 F 99 H 33 H 154/78 154/78 97 05/27/25 11:46 101.3 F 05/27/25 11:30 100 H 30 H 182/95 95 05/27/25 11:07 95 05/27/25 11:01 101 H 38 H 174/88 95 05/27/25 10:56 100.8 F 108 H 20 174/88 95 Pain Assessment - Last Documented Pain Intensity 0 Intake and Output: Intake & Output 05/25/25 05/26/25 05/27/25 05/28/25 11:59 11:59 11:59 11:59 Intake Total 912 Output Total 950 Balance -38 Weight 83.6 kg 83 kg Lab Results: Lab Results-Last 24 Hours 05/27/25 05/27/25 05/27/25 Range/Units 11:07 11:08 11:45 WBC 6.3 (4.23-9.07) x10^3/uL RBC 4.47 L (4.63-6.08) x10^6/uL Hgb 14.2 (13.7-17.5) g/dL Hct 44.8 (40.1-51.0) % MCV 100.2 H (79.0-92.2) fL MCH 31.8 (25.7-32.2) pg MCHC 31.7 L (32.3-36.5) g/dL RDW 13.3 (11.6-14.4) % Plt Count 168 (163-337) x10^3/uL MPV 9.2 L (9.4-12.4) fL Gran % 86.4 H (34.0-67.9) % Immature Gran % (Auto) 0.3 (0.001-0.429) % Nucleat RBC Rel Count 0.0 (0.00-0.2) % Eos # (Auto) 0.04 (0.04-0.54) x10^3/uL Immature Gran # (Auto) 0.02 (0.001-0.031) x10^3u/L Absolute Lymphs (auto) 0.34 L (1.32-3.57) x10^3/uL Absolute Monos (auto) 0.44 (0.30-0.82) x10^3/uL Absolute Nucleated RBC 0.00 (0.00-0.012) x10^3u/L Lymphocytes % 5.4 L (21.8-53.1) % Monocytes % 7.0 (5.3-12.2) % Eosinophils % 0.6 L (0.8-7.0) % Basophils % 0.3 (0.2-1.2) % Absolute Granulocytes 5.43 H (1.78-5.38) x10^3/uL Basophils # 0.02 (0.01-0.08) x10^3/uL Sodium (135-145) mmol/L Potassium (3.5-5.1) mmol/L Chloride (98-107) mmol/L Carbon Dioxide (22-30) mmol/L Anion Gap (5-15) MEQ/L BUN (9-20) mg/dL Creatinine (0.66-1.25) mg/dL Estimated GFR ML/MIN Glucose (74-106) mg/dL Lactic Acid 1.3 (0.4-2.0) Calcium (8.4-10.2) mg/dL Total Bilirubin (0.2-1.3) mg/dL AST (17-59) U/L ALT (0-50) U/L Alkaline Phosphatase (38-126) U/L Serum Total Protein (6.3-8.2) g/dL Albumin (3.5-5.0) g/dL Urine Color Yellow (Yellow) Urine Appearance Clear (Clear) Urine pH 7.5 (4.6-8.0) Ur Specific [place] 1.015 (1.005-1.030) Urine Protein Trace A (Negative) Urine Glucose (UA) Negative (Negative) mg/dL Urine Ketones Trace A (Negative) Urine Blood Negative (Negative) Urine Nitrite Positive A (Negative) Urine Bilirubin Negative (Negative) Urine Urobilinogen 0.2 (0.2) mg/dL Ur Leukocyte Esterase Trace A (Negative) U Hyaline Cast (Auto) NONE SEEN (0-2) /LPF Urine Microscopic RBC 6-10 A (0-5) /HPF Urine Microscopic WBC 11-20 A (0-5) /HPF Ur Epithelial Cells None Seen (None Seen) /HPF Amorphous Crystals Moderate A (None Seen) /HPF Urine Bacteria Few A (None Seen) /HPF Urine Culture Reflexed YES (NO) Influenza Type A Ag (NEGATIVE) Influenza Type B Ag (NEGATIVE) RSV (PCR) (NEGATIVE) SARS-CoV-2 (PCR) (NEGATIVE) Slides for Path Review YES 05/27/25 05/27/25 Range/Units 11:45 11:45 WBC (4.23-9.07) x10^3/uL RBC (4.63-6.08) x10^6/uL Hgb (13.7-17.5) g/dL Hct (40.1-51.0) % MCV (79.0-92.2) fL MCH (25.7-32.2) pg MCHC (32.3-36.5) g/dL RDW (11.6-14.4) % Plt Count (163-337) x10^3/uL MPV (9.4-12.4) fL Gran % (34.0-67.9) % Immature Gran % (Auto) (0.001-0.429) % Nucleat RBC Rel Count (0.00-0.2) % Eos # (Auto) (0.04-0.54) x10^3/uL Immature Gran # (Auto) (0.001-0.031) x10^3u/L Absolute Lymphs (auto) (1.32-3.57) x10^3/uL Absolute Monos (auto) (0.30-0.82) x10^3/uL Absolute Nucleated RBC (0.00-0.012) x10^3u/L Lymphocytes % (21.8-53.1) % Monocytes % (5.3-12.2) % Eosinophils % (0.8-7.0) % Basophils % (0.2-1.2) % Absolute Granulocytes (1.78-5.38) x10^3/uL Basophils # (0.01-0.08) x10^3/uL Sodium 135 (135-145) mmol/L Potassium 5.0 (3.5-5.1) mmol/L Chloride 103 (98-107) mmol/L Carbon Dioxide 25 (22-30) mmol/L Anion Gap 11.2 (5-15) MEQ/L BUN 22 H (9-20) mg/dL Creatinine 1.80 H (0.66-1.25) mg/dL Estimated GFR 37.6 ML/MIN Glucose 106 (74-106) mg/dL Lactic Acid (0.4-2.0) Calcium 9.6 (8.4-10.2) mg/dL Total Bilirubin 0.50 (0.2-1.3) mg/dL AST 32 (17-59) U/L ALT 17 (0-50) U/L Alkaline Phosphatase 79 (38-126) U/L Serum Total Protein 7.9 (6.3-8.2) g/dL Albumin 4.1 (3.5-5.0) g/dL Urine Color (Yellow) Urine Appearance (Clear) Urine pH (4.6-8.0) Ur Specific [place] (1.005-1.030) Urine Protein (Negative) Urine Glucose (UA) (Negative) mg/dL Urine Ketones (Negative) Urine Blood (Negative) Urine Nitrite (Negative) Urine Bilirubin (Negative) Urine Urobilinogen (0.2) mg/dL Ur Leukocyte Esterase (Negative) U Hyaline Cast (Auto) (0-2) /LPF Urine Microscopic RBC (0-5) /HPF Urine Microscopic WBC (0-5) /HPF Ur Epithelial Cells (None Seen) /HPF Amorphous Crystals (None Seen) /HPF Urine Bacteria (None Seen) /HPF Urine Culture Reflexed (NO) Influenza Type A Ag NEGATIVE (NEGATIVE) Influenza Type B Ag NEGATIVE (NEGATIVE) RSV (PCR) NEGATIVE (NEGATIVE) SARS-CoV-2 (PCR) NEGATIVE (NEGATIVE) Slides for Path Review Radiology Exams: Radiology Procedures Category Date Time Status CHEST 1 VIEW (PORTABLE) Stat Exams 05/27/25 11:09 Completed Medications: Medications Generic Name Dose Route Start Last Admin Trade Name Freq PRN Reason Stop Dose Admin Acetaminophen 650 mg 05/27/25 17:11 Acetaminophen 325 Mg Tablet PO 06/26/25 17:10 Q4H PRN PRN PAIN, FEVER, HEADACHE Amlodipine Besylate 5 mg 05/28/25 10:00 Amlodipine Besylate 5 Mg Tablet PO 06/27/25 09:59 QAM WILLARD Aspirin mg 05/28/25 10:00 Aspirin 81 Mg Tab.Chew PO 06/27/25 09:59 DAILY [facility]ARD Brimonidine Tartrate ml 05/28/25 10:00 Brimonidine Tartrate 5 Ml Bottle Eye Drops OP 06/27/25 09:59 BID WILLARD Enoxaparin Sodium 40 mg 05/28/25 10:00 Enoxaparin Sodium 40 Mg/0.4 Ml Syringe SQ 06/27/25 09:59 DAILY [facility]ARD Finasteride 5 mg 05/28/25 22:00 Finasteride 5 Mg Tablet PO 06/27/25 21:59 HS WILLARD Gabapentin 300 mg 05/28/25 10:00 05/27/25 23:40 Gabapentin 300 Mg Capsule PO 06/27/25 09:59 300 mg TID WILLARD Administration Sodium Chloride 1,000 mls @ 100 mls/hr 05/27/25 17:15 05/27/25 21:43 Sodium Chloride 0.9% 1000 Ml IV 06/26/25 17:14 Not Given .Q10H WILLARD Ceftriaxone Sodium 1 gm in 100 mls @ 200 mls/hr 05/28/25 10:00 Rocephin 1 Gm / 100 Ml Nacl IV 06/27/25 09:59 Q24H10 WILLARD Latanoprost ml 05/28/25 22:00 Latanoprost 2.5 Ml Bottle OP 06/27/25 21:59 QHS WILLARD Lorazepam 1 mg 05/27/25 22:37 Lorazepam 1 Mg Tablet PO 06/26/25 22:36 TID PRN ANXIETY Nitroglycerin mg 05/27/25 22:37 Nitroglycerin 0.4 Mg Tablet Bottle SL 06/26/25 22:36 QIDPRN PRN CHEST PAIN Non-Formulary Medication 1,000 units 05/28/25 10:00 Cholecalciferol (Vitamin D3) [Vitamin D3] PO 06/27/25 09:59 DAILY [facility] Non-Formulary Medication 1 tab 05/28/25 10:00 Cyanocobalamin (Vitamin B-12) [Vitamin B-12] PO 06/27/25 09:59 DAILY [facility] Non-Formulary Medication 150 mg 05/28/25 10:00 Lamotrigine [Lamictal] PO 06/27/25 09:59 BID [facility] Non-Formulary Medication 5 mg 05/28/25 22:00 Melatonin/Pyridoxine [Melatonin 5 Mg Tablet] PO 06/27/25 21:59 HS [facility] Ondansetron HCl 4 mg 05/27/25 17:11 Ondansetron Hcl 4 Mg/2 Ml Vial IV 06/26/25 17:10 Q6H PRN PRN NAUSEA/VOMITING Pantoprazole Sodium 40 mg 05/28/25 10:00 Protonix (Pantoprazole) 40 Mg Tablet PO 06/27/25 09:59 DAILY [facility] Tamsulosin HCl 0.4 mg 05/28/25 22:00 05/27/25 23:40 Tamsulosin Hcl 0.4 Mg Cap PO 06/27/25 21:59 0.4 mg HS WILLARD Administration Timolol Maleate ml 05/28/25 10:00 Timolol Maleate 0.5% 5 Ml Eye Drops OP 06/27/25 09:59 BID WILLARD Discontinued Medications Generic Name Dose Route Start Last Admin Trade Name Jhoana PRN Reason Stop Dose Admin Acetaminophen 975 mg 05/27/25 11:07 05/27/25 11:37 Acetaminophen 325 Mg Tablet PO 05/27/25 11:08 975 mg STAT STA Administration Acetaminophen Confirm 05/27/25 11:35 Acetaminophen 325 Mg Tablet Administered 05/27/25 11:36 Dose 975 mg .ROUTE .STK-MED ONE Sodium Chloride 1,000 mls @ 100 mls/hr 05/27/25 11:15 05/27/25 11:38 Sodium Chloride 0.9% 1000 Ml IV 06/26/25 11:14 100 mls/hr .Q10H WILLARD Administration Ceftriaxone Sodium 1 gm in 100 mls @ 200 mls/hr 05/27/25 16:15 05/27/25 16:31 Rocephin 1 Gm / 100 Ml Nacl IV 05/27/25 16:44 200 mls/hr STAT ONE 200 mls/hr Administration Ceftriaxone Sodium Confirm 05/27/25 16:30 Rocephin 1 Gm / 100 Ml Nacl Administered 05/27/25 16:31 Dose 1 gm in 100 mls @ ud IV .STK-MED ONE Sodium Chloride Confirm 05/27/25 11:35 Sodium Chloride 0.9% 1000 Ml Administered 05/27/25 11:36 Dose 1,000 mls @ ud .ROUTE .STK-MED ONE Ibuprofen 600 mg 05/27/25 11:07 05/27/25 11:38 Ibuprofen 600 Mg Tablet PO 05/27/25 11:08 600 mg STAT STA Administration Ibuprofen Confirm 05/27/25 11:35 Ibuprofen 600 Mg Tablet Administered 05/27/25 11:36 Dose 600 mg .ROUTE .STK-MED ONE Non-Formulary Medication 40 mg 05/28/25 10:00 Omeprazole [Omeprazole] PO 06/27/25 09:59 DAILY [facility] Tamsulosin HCl Confirm 05/27/25 23:38 Tamsulosin Hcl 0.4 Mg Cap Administered 05/27/25 23:39 Dose 0.4 mg .ROUTE .STK-MED ONE Assessment/Plan (1) UTI (urinary tract infection) Current Visit: Yes Status: Acute Assessment & Plan: - UA positive for nitrites and leukocytes -Continue IV ceftriaxone pending culture results; de-escalate or adjust based on sensitivities -Monitor for clinical response; follow repeat vitals and urine output -CBC unremarkable Code(s): N39.0 - URINARY TRACT INFECTION, SITE NOT SPECIFIED (2) Acute kidney injury superimposed on chronic kidney disease Current Visit: Yes Status: Acute Assessment & Plan: -Baseline Cr 1.31.4; admission Cr 1.8 suggests JEAN MARIE, likely prerenal from infection and possible dehydration. -Continue gentle IV hydration with close monitoring given age and comorbidities. -Avoid nephrotoxic medications (NSAIDs, IV contrast). -Daily CMP to trend renal function -Renal dose medications Code(s): N17.9 - ACUTE KIDNEY FAILURE, UNSPECIFIED; N18.9 - CHRONIC KIDNEY DISEASE, UNSPECIFIED (3) Alzheimer disease Current Visit: Yes Status: Acute Assessment & Plan: -Supportive management, continue home medications as tolerated. -Monitor for delirium in setting of infection. Code(s): G30.9 - ALZHEIMER'S DISEASE, UNSPECIFIED; F02.80 - DEM IN OTH DIS CLASSD ELSWHR,UNSP SEV,W/O BEH/PSYCH/MOOD/ANX (4) BPH (benign prostatic hyperplasia) Current Visit: No Status: Chronic Assessment & Plan: -continue finesteride -PVR -monitor I&O closely Code(s): N40.0 - BENIGN PROSTATIC HYPERPLASIA WITHOUT LOWER URINRY TRACT SYMP (5) HTN (hypertension) Current Visit: No Status: Chronic Assessment & Plan: -Admission BP 143/88. May be stress-related but requires monitoring. -Resume home antihypertensives if renal function and hemodynamics permit. Code(s): I10 - ESSENTIAL (PRIMARY) HYPERTENSION (6) GERD (gastroesophageal reflux disease) Current Visit: Yes Status: Acute Assessment & Plan: -Continue chronic medications as tolerated. -Supportive care; coordinate with pharmacy to ensure safe dosing with renal impairment. VTE: Lovenox PPI: protonix Dispo: 1-2 days Code status: Full code Plan of care time spent > 40 mins Code(s): N39.0 - URINARY TRACT INFECTION, SITE NOT SPECIFIED (2) Acute kidney injury superimposed on chronic kidney disease Current Visit: Yes Status: Acute Code(s): N17.9 - ACUTE KIDNEY FAILURE, UNSPECIFIED; N18.9 - CHRONIC KIDNEY DISEASE, UNSPECIFIED (3) Alzheimer disease Current Visit: Yes Status: Acute Code(s): G30.9 - ALZHEIMER'S DISEASE, UNSPECIFIED; F02.80 - DEM IN OTH DIS CLASSD ELSWHR,UNSP SEV,W/O BEH/PSYCH/MOOD/ANX (4) BPH (benign prostatic hyperplasia) Current Visit: No Status: Chronic Code(s): N40.0 - BENIGN PROSTATIC HYPERPLASIA WITHOUT LOWER URINRY TRACT SYMP (5) HTN (hypertension) Current Visit: No Status: Chronic Code(s): I10 - ESSENTIAL (PRIMARY) HYPERTENSION (6) GERD (gastroesophageal reflux disease) Current Visit: Yes Status: Acute Code(s): K21.9 - GASTRO-ESOPHAGEAL REFLUX DISEASE WITHOUT ESOPHAGITIS
[2025-05-28 05:40] LABS: BASOPHIL % 0.6 % (0.2-1.2); Basophil (Absolute #) 0.03 x10^3/uL (0.01-0.08); Eosinophil (Absolute #) 0.07 x10^3/uL (0.04-0.54); Hematocrit 39.8 % (40.1-51.0); Hemoglobin 13.2 g/dL (13.7-17.5); IMMATURE GRAN # 0.01 x10^3u/L (0.001-0.031); IMMATURE GRAN % 0.2 % (0.001-0.429); Lymphocyte (Absolute #) 0.58 x10^3/uL (1.32-3.57); Mean Corpuscular Hemoglobin 31.9 pg (25.7-32.2); Mean Corpuscular Hgb Concent. 33.2 g/dL (32.3-36.5); Monocyte (Absolute #) 0.60 x10^3/uL (0.30-0.82); NUCLEATED RBC # 0.00 x10^3u/L (0.00-0.012); NUCLEATED RBC % 0.0 % (0.00-0.2); Platelet Count 184 x10^3/uL (163-337); Red Blood Count 4.14 x10^6/uL (4.63-6.08); White Blood Count 4.7 x10^3/uL (4.23-9.07)
[2025-05-28 06:05] LABS: Calcium 9.1 mg/dL (8.4-10.2); Carbon Dioxide 25.0 mmol/L (22-30); Creatinine 1 1.8 mg/dL (0.66-1.25); EST GLOMERULAR FILTRATION RATE 37.6 ML/MIN; Glucose 92.0 mg/dL (74-106); Potassium 4.2 mmol/L (3.5-5.1); SGOT/AST 28.0 U/L (17-59); SGPT/ALT 16.0 U/L (0-50); Total Protein 7.2 g/dL (6.3-8.2)
[2025-05-28 06:23] LABS: Slide Review 1 YES
[2025-05-28] MEDS: Vitamin B-12 500 MCG PO SCH (09:23)
[2025-05-28] MEDS: lamICTAL 100MG TABLET PO SCH (09:23)
[2025-05-28] MEDS: VITAMIN D PO SCH (09:25)
[2025-05-28] MEDS: Protonix 40MG Tablet PO SCH (09:25)
[2025-05-28] MEDS: NORVASC 5 MG PO SCH (09:26)
[2025-05-28] MEDS: ECOTRIN 81 MG PO SCH (09:26)
[2025-05-28] MEDS: ROCEPHIN 1 GM / 100 ML NaCl 1 GM/100 ML IVPB IV SCH (09:27)
[2025-05-28] MEDS: ENOXAPARIN SODIUM SQ SCH (09:28)
[2025-05-28] MEDS ORDERED: Alphagan P 0.15% OP SCH (10:00)
[2025-05-28] MEDS ORDERED: LAMOTRIGINE 150 MG PO SCH (10:00)
[2025-05-28] MEDS ORDERED: BABY ASPIRIN 81 MG CHEW PO SCH (10:00)
[2025-05-28] MEDS ORDERED: TIMOPTIC 0.5% 5 ML OPHTHALMIC OP SCH (10:00)
[2025-05-28] MEDS ORDERED: NON-FORMULARY ITEM (Cholecalciferol (Vitamin D3) [Vitamin D3] 25 MCG Capsule) PO SCH (10:00)
[2025-05-28] MEDS ORDERED: NON-FORMULARY ITEM (Omeprazole [Omeprazole] 40 MG Capsule.Dr) PO SCH (10:00)
[2025-05-28] MEDS ORDERED: CYANOCOBALAMIN 5000 MCG PO SCH (10:00)
[2025-05-28 11:55] VITALS: TEMP 98.4
[2025-05-28] MEDS: TYLENOL 325 MG PO PRN (13:24)
--- NOTE | 2025-05-28 15:39 | PCM.DS ---
Discharge Summary Date of Admission: 05/27/25 16:38 Date of Discharge: 05/28/25 Admitting Physician: VIRGINIE APODACA MD Primary Care Provider: TOM AGUILAR Allergies Allergies potassium [Potassium] Adverse Reaction (Intermediate, Verified 03/04/25 23:55) states feels hot flashes,states a presc. of it was making him itch,hot Hospital Summary - Hospital Course Hospital Course: Mr. Blanco is an 79-year-old male with Alzheimers disease, peripheral neuropathy, cataracts, glaucoma, angina, hypertension, prostate disease, arthritis, GERD, and chronic kidney disease who presented on 05/27/25 with low- grade fever after receiving both COVID and influenza vaccines the prior day. He also reported several weeks of dysuria. On arrival, he was febrile to 100.8 F, tachycardic to 108, and hypertensive to 174/88. EKG showed sinus tachycardia with right bundle branch block, chest x-ray was without acute findings, and labs showed WBC 6.3 with creatinine 1.8 (baseline 1.31.4). Urinalysis was positive for nitrites and leukocytes, and respiratory viral panel was negative. He received ceftriaxone, IV fluids, and antipyretics in the ED. Blood and urine cultures were sent; urine culture grew gram-positive organism. His fever resolved, vital signs stabilized, and renal function remained near baseline with mild JEAN MARIE. Dysuria improved, and he is requesting discharge home. Given underlying CKD and comorbidities, plans are in place for outpatient nephrology and primary care follow-up. He will complete an oral antibiotic course and continue his chronic medications. Discharge Note New Diagnosis: UTI New Medications: Cefdinir 300mg bid x 7 days Follow Up: PCP Results pending: Ucult Outpatient testing to order: repeat UA I spent 35 minutes [id number] with the patient on the day of discharge performing discharge exam, discussing hospital stay and discharge instructions with patient and caregivers, preparation of discharge records, prescriptions & referral forms and addressing any questions/concerns the patient had as documented above. - Vitals & Intake/Output Vital Signs: Vital Signs Temperature 98.4 F 05/28/25 11:53 Pulse Rate 89 05/28/25 11:53 Respiratory Rate 22 05/28/25 11:53 Blood Pressure 176/88 05/28/25 11:53 O2 Sat by Pulse Oximetry 97 05/28/25 11:53 Intake & Output: Intake & Output 05/26/25 05/27/25 05/28/25 05/29/25 11:59 11:59 11:59 11:59 Intake Total 1112 300 Output Total 1350 575 Balance -238 -275 Weight 83.6 kg 83 kg - Lab Result Diagrams: 05/28/25 04:20 05/28/25 04:20 Lab Results-Last 24 Hrs: Lab Results-Last 24 Hours 05/28/25 05/28/25 Range/Units 04:20 04:20 WBC 4.7 (4.23-9.07) x10^3/uL RBC 4.14 L (4.63-6.08) x10^6/uL Hgb 13.2 L (13.7-17.5) g/dL Hct 39.8 L (40.1-51.0) % MCV 96.1 H (79.0-92.2) fL MCH 31.9 (25.7-32.2) pg MCHC 33.2 (32.3-36.5) g/dL RDW 13.4 (11.6-14.4) % Plt Count 184 (163-337) x10^3/uL MPV 9.0 L (9.4-12.4) fL Gran % 72.5 H (34.0-67.9) % Immature Gran % (Auto) 0.2 (0.001-0.429) % Nucleat RBC Rel Count 0.0 (0.00-0.2) % Eos # (Auto) 0.07 (0.04-0.54) x10^3/uL Immature Gran # (Auto) 0.01 (0.001-0.031) x10^3u/L Absolute Lymphs (auto) 0.58 L (1.32-3.57) x10^3/uL Absolute Monos (auto) 0.60 (0.30-0.82) x10^3/uL Absolute Nucleated RBC 0.00 (0.00-0.012) x10^3u/L Lymphocytes % 12.4 L (21.8-53.1) % Monocytes % 12.8 H (5.3-12.2) % Eosinophils % 1.5 (0.8-7.0) % Basophils % 0.6 (0.2-1.2) % Absolute Granulocytes 3.39 (1.78-5.38) x10^3/uL Basophils # 0.03 (0.01-0.08) x10^3/uL Sodium 136 (135-145) mmol/L Potassium 4.2 (3.5-5.1) mmol/L Chloride 104 (98-107) mmol/L Carbon Dioxide 25 (22-30) mmol/L Anion Gap 11.3 (5-15) MEQ/L BUN 21 H (9-20) mg/dL Creatinine 1.80 H (0.66-1.25) mg/dL Estimated GFR 37.6 ML/MIN Glucose 92 (74-106) mg/dL Calcium 9.1 (8.4-10.2) mg/dL Total Bilirubin 0.40 (0.2-1.3) mg/dL AST 28 (17-59) U/L ALT 16 (0-50) U/L Alkaline Phosphatase 73 (38-126) U/L Serum Total Protein 7.2 (6.3-8.2) g/dL Albumin 3.8 (3.5-5.0) g/dL Slides for Path Review YES Micro Results-Entire Visit: Microbiology 05/27/25 11:08 Urine Culture - Preliminary Clean Catch Midstream GRAM POSITIVE ID AND SENSITIVITY PENDING - Radiology Exams Ordered Rad Exams-Entire Visit: Radiology Procedures Category Date Time Status CHEST 1 VIEW (PORTABLE) Stat Exams 05/27/25 11:09 Completed - Procedures and Test Procedures and Tests throughout Hospitalization: Therapy Orders & Screens 05/27/25 21:09 OT Screen per Nursing Assess ONCE Comment: Protocol Order Physician Instructions: Greater than 3 points order OT Admission Screening Reason For Exam: Triggered on Admission Diagnosis: UTI Open Wound/Cellutlitis/Pressure Ulcers: No Acute Fx/ORIF/Change in wt bearing status: No Severe MUSCULOSKELETAL pain: No ADL Dysfunction: Yes Acute CVA w/Hemiparesis/Hemiplegia: No Decreased Functional Mobility/Strength: Yes Sprain/Strain: No Acute Post-op Mobility Dysfunction: No Total Points: 4 PT Screen per Nursing Assess ONCE Comment: Protocol Order Physician Instructions: Greater than 3 points order PT Admission Screenin Reason For Exam: Triggered on Admission Diagnosis: UTI Open Wound/Cellutlitis/Pressure Ulcers: No Acute Fx/ORIF/Change in wt bearing status: No Severe MUSCULOSKELETAL pain: No ADL Dysfunction: Yes Acute CVA w/Hemiparesis/Hemiplegia: No Decreased Functional Mobility/Strength: Yes Sprain/Strain: No Acute Post-op Mobility Dysfunction: No Total Points: 4 ST Screen per Nursing Assess ONCE Comment: Protocol Order Physician Instructions: Greater than [address] Admission Screening Reason For Exam: Triggered on Admission Diagnosis: UTI CVA/Dysphagia/Aphasia: No Cognitive Deficits: Yes Dehydration/Nutrition Deficit: No Reflux: Yes Oral-Motor Difficulties: No Pneumonia: No Prison Resident: No Total Points: 6 Discharge Exam General Appearance: no apparent distress Neurologic Exam: alert, oriented x 3, cooperative Eye Exam: PERRL Ears, Nose, Throat Exam: normal ENT inspection Neck Exam: normal inspection Respiratory Exam: normal breath sounds, lungs clear Cardiovascular Exam: regular rate/rhythm, normal heart sounds Gastrointestinal/Abdomen Exam: soft, normal bowel sounds Male Genitalia Exam: deferred Rectal Exam: deferred Back Exam: normal inspection Extremity Exam: normal inspection Skin Exam: normal color Final Diagnosis/Problem List - Final Discharge Diagnosis/Problem (1) UTI (urinary tract infection) Current Visit: Yes Status: Acute Assessment & Plan: UA positive for nitrites and leukocytes; urine culture with gram-positive organism. Transition from IV ceftriaxone to oral cefdinir PO (complete full prescribed course). Encourage oral hydration. Monitor for fever, flank pain, worsening dysuria, or hematuria; return precautions reviewed. Follow-up with PCP to review culture sensitivities and clinical status. Code(s): N39.0 - URINARY TRACT INFECTION, SITE NOT SPECIFIED (2) Acute kidney injury superimposed on chronic kidney disease Current Visit: Yes Status: Acute Assessment & Plan: Baseline Cr 1.31.4; admission 1.8, improved with hydration, likely prerenal. Avoid nephrotoxic medications Dose-adjust all medications for renal function. Outpatient nephrology referral for CKD surveillance and medication optimization. Code(s): N17.9 - ACUTE KIDNEY FAILURE, UNSPECIFIED; N18.9 - CHRONIC KIDNEY DISEASE, UNSPECIFIED (3) Alzheimer disease Current Visit: Yes Status: Acute Assessment & Plan: Continue home regimen: donepezil/memantine if prescribed (per med reconciliation). Supportive care with caregiver education; monitor for delirium in setting of infection. Outpatient neurology/PCP follow-up. Code(s): G30.9 - ALZHEIMER'S DISEASE, UNSPECIFIED; F02.80 - DEM IN OTH DIS CLASSD ELSWHR,UNSP SEV,W/O BEH/PSYCH/MOOD/ANX (4) BPH (benign prostatic hyperplasia) Current Visit: No Status: Chronic Assessment & Plan: Continue finasteride PO daily (home med). Encourage hydration, monitor for urinary retention. Post-void residual checked inpatient; outpatient urology/PCP follow-up as needed. Code(s): N40.0 - BENIGN PROSTATIC HYPERPLASIA WITHOUT LOWER URINRY TRACT SYMP (5) HTN (hypertension) Current Visit: No Status: Chronic Assessment & Plan: Admission BP elevated (174/88); likely stress-related but requires ongoing control. Resume home antihypertensive regimen (verify pill pack, includes SABRINA inhibitor or beta-janet). Monitor BP outpatient; PCP follow-up for medication adjustment. Code(s): I10 - ESSENTIAL (PRIMARY) HYPERTENSION (6) GERD (gastroesophageal reflux disease) Current Visit: Yes Status: Acute Assessment & Plan: Continue home PPI or H2 janet (per pill pack). Lifestyle measures reinforced: avoid late meals, elevate HOB, avoid triggers. Adjust dosing if needed for renal function. Code(s): K21.9 - GASTRO-ESOPHAGEAL REFLUX DISEASE WITHOUT ESOPHAGITIS - Discharge Discharge Date: 05/28/25 Disposition: Home, Self-Care Condition: Stable Prescriptions: New Cefdinir 300 mg [Omnicef 300 mg] 300 mg PO BID 7 Days #14 cap Continue lamoTRIgine [Lamictal] 150 mg PO BID Latanoprost [Xalatan] 1 drop OP QHS Omeprazole 40 mg PO DAILY Melatonin/Pyridoxine [Melatonin 5 mg Tablet] 5 mg PO HS Lorazepam 1 mg [Ativan 1 MG] 1 mg PO TID PRN PRN Reason: Anxiety Timolol Maleate 0.5% Eye [Timoptic 0.5% 5 ml Ophthalmic] 1 drop DROPS BID Gabapentin [Neurontin ] 300 mg PO TID Nitroglycerin 0.4 mg Tablet [Nitrostat 0.4 MG Tablet] 1 tab SL QIDPRN PRN PRN Reason: Chest Pain Finasteride 5 mg [Proscar 5 MG] 5 mg PO HS Amlodipine Besylate 5 mg [Norvasc 5 mg] 5 mg PO QAM Brimonidine Tartrate [Alphagan P] 1 drop OP BID Tamsulosin HCl [Flomax] 0.4 mg PO HS Cholecalciferol (Vitamin D3) [Vitamin D3] 1,000 units PO DAILY Cyanocobalamin (Vitamin B-12) [Vitamin B-12] 1 tab PO DAILY Aspirin 81 gm Chew [Baby Aspirin 81 mg Chew] 1 tab PO DAILY Discontinued Furosemide 40 mg [Lasix 40 MG] 40 mg PO DAILY Additional Instructions: Follow up with nephrology on Monday /Labs this week (Monday) Hold lasix until nephrology follow, check weight daily, if you notice a weight gain > 3lbs in one day or > 5lbs in one week please contact your provider for further instructions Follow up with: TOM AGUILAR MD [[facility] Care Provider, [facility]] - 06/04/25 2:15 pm
[2025-05-28 16:06] VITALS: BP 153/72; PULSE 82; RESP 20; O2SAT 96
[2025-05-28] MEDS ORDERED: Proscar 5 MG PO SCH (22:00)
[2025-05-28] MEDS ORDERED: MELATONIN PO SCH (22:00)
[2025-05-28] MEDS ORDERED: NON-FORMULARY ITEM (Melatonin/Pyridoxine [Melatonin 5 Mg Tablet] 1 EACH Tablet) PO SCH (22:00)
[2025-05-28] MEDS ORDERED: Xalatan OP SCH (22:00)
== END 2025-05-28 16:25 | disposition home or self-care (01) ==
LOC: ED 10:55 → MED SURG 16:38
PROVIDERS: ADMIT Internal Medicine; ATTEND Internal Medicine
DX: N39.0 Urinary tract infection, site not specified (principal); D72.829 Elevated white blood cell count, unspecified; I12.9 Hypertensive chronic kidney disease with stage 1 through stage 4 chronic kidney disease, or unspecified chronic kidney disease; N17.9 Acute kidney failure, unspecified; N18.9 Chronic kidney disease, unspecified; G30.9 Alzheimer's disease, unspecified; F02.80 Dementia in other diseases classified elsewhere, unspecified severity, without behavioral disturbance, psychotic disturbance, mood disturbance, and anxiety; N40.0 Benign prostatic hyperplasia without lower urinary tract symptoms; K21.9 Gastro-esophageal reflux disease without esophagitis; R00.0 Tachycardia, unspecified; Z79.899 Other long term (current) drug therapy
CPT/HCPCS: 36415; 71045; 80053; 81001; 83605; 85025; 87040; 87077; 87086; 87186; 87637; 93005; 93041; 93268; 94760; 99285; G0378; Q3014

== ENCOUNTER 2025-06-17 22:33 | Emergency (ER) | payer MEDICARE ==
[2025-06-17 22:48] VITALS: TEMP 97.2
--- NOTE | 2025-06-17 23:01 | ERPHSYRPT ---
- History of Present Illness Time Seen by Provider: 06/17/25 22:57 Source: patient Exam Limitations: no limitations Patient Subjective Stated Complaint: "I haven't had a bowel movement in 2 or 3 days. I'm having pain down there". Triage Nursing Assessment: Pt presents to ER with complaints of constipation for the past couple of days. Believes his last BM was 2 or 3 days ago. States having pain in his rectum, rating pain 8/10 scale. Pt denies abdominal pain, nausea or vomiting. Pt is alert and oriented. Skin is pink, warm, and dry. Respirations are easy. Pt has unsteady gait with stand by assist x 1. Pt has history of constipation. Has attempted OTC laxative and some prune juice this morning without success. Physician History: 79-year-old male history of Alzheimer's disease hypertension heart disease presents to our ED for evaluation of "constipation" x 2 to 3 days now experiencing rectal pain. Symptoms are mild to moderate in intensity. No specific worsening or improving factors. No trauma no fever. No abdominal pain no nausea no vomiting. Patient otherwise asymptomatic. He voices no other complaints or concerns at this time. Portions of this note were created with voice recognition technology. There may be grammatical, spelling, punctuation or sound alike errors Timing/Duration: day(s) (To 3 days) Severity: moderate Modifying Factors: Improves With: nothing Associated Symptoms: denies symptoms Allergies/Adverse Reactions: potassium [Potassium] Adverse Reaction (Intermediate, Verified 06/17/25 22:44) states feels hot flashes,states a presc. of it was making him itch,hot Home Medications: lamoTRIgine [Lamictal] 150 mg PO BID 08/03/14 [History] Latanoprost [Xalatan] 1 drop OP QHS 04/27/16 [History] Lorazepam 1 mg [Ativan 1 MG] 1 mg PO TID PRN 05/12/24 [History] Melatonin/Pyridoxine [Melatonin 5 mg Tablet] 5 mg PO HS 05/12/24 [History] Timolol Maleate 0.5% Eye [Timoptic 0.5% 5 ml Ophthalmic] 1 drop DROPS BID 05/12/24 [History] Gabapentin [Neurontin ] 300 mg PO TID 06/03/24 [History] Amlodipine Besylate 5 mg [Norvasc 5 mg] 5 mg PO QAM 05/27/25 [History] Aspirin 81 gm Chew [Baby Aspirin 81 mg Chew] 1 tab PO DAILY 05/27/25 [History] Brimonidine Tartrate [Alphagan P] 1 drop OP BID 05/27/25 [History] Cholecalciferol (Vitamin D3) [Vitamin D3] 1,000 units PO DAILY 05/27/25 [History] Cyanocobalamin (Vitamin B-12) [Vitamin B-12] 1 tab PO DAILY 05/27/25 [History] Finasteride 5 mg [Proscar 5 MG] 5 mg PO HS 05/27/25 [History] Nitroglycerin 0.4 mg Tablet [Nitrostat 0.4 MG Tablet] 1 tab SL QIDPRN PRN 05/27/25 [History] Tamsulosin HCl [Flomax] 0.4 mg PO BID 05/27/25 [History] Hx Tetanus, Diphtheria Vaccination/Date Given: Yes Hx Influenza Vaccination/Date Given: Yes Hx Pneumococcal Vaccination/Date Given: Yes Immunizations Up to Date: Yes Travel Risk - International Travel Have you traveled outside of the country in past 3 weeks: No - Emerging Infectious Disease Are you exhibiting symptoms associated with any current EIDs: No Symptoms: Other (Please Comment) Comment: weakness h/o UTI - Review of Systems All Other Systems: Reviewed and Negative - Past Medical History Pertinent Past Medical History: Yes Neurological History: Alzheimer's Disease, Peripheral Neuropathy, Other ENT History: Cataracts, Glaucoma Cardiac History: Angina, Hypertension Respiratory History: No Pertinent History Endocrine Medical History: No Pertinent History Musculoskeletal History: Arthritis GI Medical History: GERD, Gallbladder Disease, Hernia History: Renal Disease Psycho-Social History: Anxiety Male Reproductive Disorders: Prostate Problems Other Medical History: Kidney sclerosis, insomnia, UTI - Past Surgical History Past Surgical History: Yes Neuro Surgical History: No Pertinent History Cardiac: No Pertinent History Respiratory: No Pertinent History Gastrointestinal: Hernia Repair Genitourinary: No Pertinent History Musculoskeletal: Joint Replacement, Orthopedic Surgery Male Surgical History: Prostate Surgery Other Surgical History: bilateral lens implant, bilateral hip replacement, back Significant Family History: heart disease, cancer - Social History Smoking Status: Never smoker Exposure to second hand smoke: No Drug Use: none - Social Determinants of Health Will the patient participate in the screening: Yes Do you worry about a steady place to live?: No Do you have any problems with any of the following?: No known problems In the past 12 months,have you had to go without utilities?: No Transportation Issues: No Has anyone in your support network made you feel unsafe?: No Have you or anyone in your house had to go w/o enough food: No - Nursing Vital Signs Nursing Vital Signs: Initial Vital Signs Pulse Rate 65 06/17/25 22:44 Respiratory Rate 18 06/17/25 22:44 Blood Pressure 162/76 06/17/25 22:44 O2 Sat by Pulse Oximetry 98 06/17/25 22:44 Pain Scale Pain Intensity 8 - Physical Exam General Appearance: no apparent distress, alert Eye Exam: eyes nml inspection Ears, Nose, Throat Exam: normal ENT inspection, moist mucous membranes Neck Exam: normal inspection, full range of motion Respiratory Exam: normal breath sounds, lungs clear, airway intact, No respiratory distress Cardiovascular Exam: regular rate/rhythm, normal heart sounds, normal peripheral pulses Gastrointestinal/Abdomen Exam: soft, normal bowel sounds, No tenderness, No mass Back Exam: normal inspection, normal range of motion, No CVA tenderness, No vertebral tenderness Extremity Exam: normal inspection, normal range of motion, pelvis stable Neurologic Exam: alert, oriented x 3, cooperative, normal mood/affect, sensation nml, No motor deficits Skin Exam: normal color, warm, dry, No rash Lymphatic Exam: No adenopathy SpO2 Interpretation: normal SpO2: 98 O2 Delivery: Room Air - Course Nursing assessment & vital signs reviewed: Yes - CT Exams Abdomen/Pelvis CT Interpretation: Tele-radiologist Report (Left renal cyst, stable perinephric fat stranding. Advise CT urography to rule out terminal ureteral calculus on the right side) Ordered Tests: Active Orders 24 hr Category Date Time Status ABDOMEN AND PELVIS W/0 CONTRAS [CT] Stat Exams 06/17/25 23:04 Completed UA W/RFX UR CULTURE Stat Lab 06/18/25 01:20 Completed Lab/Rad Data: Laboratory Results 06/18/25 Range/Units 01:20 Urine Color Yellow (Yellow) Urine Appearance Clear (Clear) Urine pH 5.5 (4.6-8.0) Ur Specific [place] 1.010 (1.005-1.030) Urine Protein Negative (Negative) Urine Glucose (UA) Negative (Negative) mg/dL Urine Ketones Negative (Negative) Urine Blood Negative (Negative) Urine Nitrite Negative (Negative) Urine Bilirubin Negative (Negative) Urine Urobilinogen 0.2 (0.2) mg/dL Ur Leukocyte Esterase Negative (Negative) U Hyaline Cast (Auto) NONE SEEN (0-2) /LPF Urine Microscopic RBC 0-2 (0-5) /HPF Urine Microscopic WBC 0-2 (0-5) /HPF Ur Epithelial Cells None Seen (None Seen) /HPF Urine Bacteria None Seen (None Seen) /HPF Urine Culture Reflexed NO (NO) - Progress Progress: improved Progress Note: 79-year-old male history of Alzheimer's disease hypertension heart disease presents to our ED for evaluation of "constipation" x 2 to 3 days now experiencing rectal pain. No trauma no fever. No abdominal pain no nausea no vomiting. Physical exam otherwise nonremarkable. CT scan reveals constipation. UA negative. Patient had a manual disimpaction followed by an enema. Patient had a large bowel movement. Symptoms resolved. Patient not ready for discharge. Portions of this note were created with voice recognition technology. There may be grammatical, spelling, punctuation or sound alike errors History obtained from patient . Differential diagnosis includes constipation, obstruction, colitis Complexity of problems addressed is moderate acute complicated. No critical care time. Complexity of data reviewed and analyzed is moderate. Test ordered test reviewed results analyzed and correlated clinically with history and physical exam. Risk of complication and or risk of morbidity/mortality of patient management is low. Vital stable. Time spent to discharge patient is approximately 15 minutes. Plan of care established for shared decision making. No social determinants of health present to impede follow-up. Portions of this note were created with voice recognition technology. There may be grammatical, spelling, punctuation or sound alike errors 06/18/25 02:54 Counseled pt/family regarding: lab results, diagnosis, need for follow-up, rad results - Departure Departure Disposition: Home Clinical Impression: Constipation Condition: Stable Critical Care Time: No Referrals: TOM AGUILAR MD [Primary Care Provider, [facility]] - Follow up/PCP as directed Instructions: Constipation, Adult (DC) Additional Instructions: Discharge/Care Plan VIRGINIE SOL was seen on 06/18/25 in the Emergency Room. The patient was counseled regarding Diagnosis,Lab results, Imaging studies, need for follow up and when to return to the Emergency Room. Prescriptions given: Discharge Note I have spoken with the patient and/or caregivers. I have explained the patient's condition, diagnosis and treatment plan based on the information available to me at this time. I have answered the patient's and/or caregiver's questions and addressed any concerns. The patient and/or caregivers have as good understanding of the patient's diagnosis, condition and treatment plan as can be expected at this point. The vital signs have been stable. The patient's condition is stable and appropriate for discharge from the emergency department. The patient will pursue further outpatient evaluation with the primary care physician or other designated or consulting physician as outlined in the discharge instructions. The patient and/or caregivers are agreeable to this plan of care and follow-up instructions have been explained in detail. The patient and/or caregivers have received these instruction. The patient/and or caregivers are aware that any significant change in condition or worsening of symptoms should prompt an immediate return to this or the closest emergency department or call 911.
[2025-06-18 00:08] VITALS: RESP 18
--- NOTE | 2025-06-18 00:47 | XRAY ---
CLINICAL HISTORY: pain COMPARISON: 03/26/2020. TECHNIQUE: Contiguous axial images were obtained from the level of the diaphragm to the pubic symphysis without intravenous or oral contrast. Coronal and sagittal reconstructions were likewise performed and indicated to increase the sensitivity for detecting clinically relevant pathology. The CT scan was performed according to ALARA (as low as reasonably achievable). FINDINGS: The visualized lung bases show atelectatic bands. Evaluation of the abdominal and pelvic visceral organs is limited without intravenous contrast. The unenhanced liver, pancreas, and adrenal glands are grossly unremarkable. The gallbladder is absent, with surgical clips in the gallbladder fossa. Splenic calcified granulomas are stable. The kidneys are normal in size and attenuation. Bilateral 1-2 mm calculi are stable. The left renal cyst is stable. There is no hydronephrosis. Mild perinephric stranding is present. The ureters are normal in caliber. No adenopathy or fluid collections are seen. No evidence of focal or diffuse bowel wall thickening or bowel obstruction is seen. No inflammed appendix is visualized in the right lower quadrant. The aorta is normal in caliber. There is fecal loading of the colon. The urinary bladder is normal in contour. Pelvic viscera are grossly unremarkable. No aggressive-appearing osseous lesions are identified. Bilateral hip arthroplasty is present, causing limited evaluation of the pelvis. Lumbar spine fixation screws are noted. IMPRESSION: Mild perinephric stranding, stable. Bilateral 1-2 mm calculi, stable. Left renal cyst, stable. Advised CT urography to rule out terminal ureteric calculus on the right side. Electronically Signed by: Blue Haynes MD. (06/18/2025 00:45:56 EDT)
[2025-06-18 01:21] VITALS: O2SAT 98
[2025-06-18 01:34] LABS: Glucose, Urine Negative (Negative); Protein,Urine Dip Negative (Negative); RBC 0-2 /HPF (0-5); WBC 0-2 /HPF (0-5)
[2025-06-18 02:05] VITALS: BP 160/84; PULSE 88
== END 2025-06-18 02:30 | disposition home or self-care (01) ==
LOC: ED 22:33
DX: K59.00 Constipation, unspecified (principal); K62.89 Other specified diseases of anus and rectum; I10 Essential (primary) hypertension; Z79.899 Other long term (current) drug therapy

== ENCOUNTER 2025-07-10 20:32 | Emergency (ER) | payer MEDICARE ==
[2025-07-10 21:11] LABS: BASOPHIL % 0.5 % (0.2-1.2); Basophil (Absolute #) 0.03 x10^3/uL (0.01-0.08); Eosinophil (Absolute #) 0.41 x10^3/uL (0.04-0.54); Hematocrit 42.6 % (40.1-51.0); Hemoglobin 13.8 g/dL (13.7-17.5); IMMATURE GRAN # 0.01 x10^3u/L (0.001-0.031); IMMATURE GRAN % 0.2 % (0.001-0.429); Lymphocyte (Absolute #) 1.28 x10^3/uL (1.32-3.57); Mean Corpuscular Hemoglobin 32.2 pg (25.7-32.2); Mean Corpuscular Hgb Concent. 32.4 g/dL (32.3-36.5); Monocyte (Absolute #) 0.57 x10^3/uL (0.30-0.82); NUCLEATED RBC # 0.00 x10^3u/L (0.00-0.012); NUCLEATED RBC % 0.0 % (0.00-0.2); Platelet Count 219 x10^3/uL (163-337); Red Blood Count 4.28 x10^6/uL (4.63-6.08); White Blood Count 6.4 x10^3/uL (4.23-9.07)
--- NOTE | 2025-07-10 21:14 | ERPHSYRPT ---
- History of Present Illness Time Seen by Provider: 07/10/25 20:41 Historian: patient Exam Limitations: no limitations Patient Subjective Stated Complaint: c/o constipation Triage Nursing Assessment: patient brought to ED by with c/o consitpstion. patient had a BM last night but said it was only a little bit. patient has bowel sounds in all 4 quads, denies abdominal pain, skin w/n/d, states he has 9/10 pain in his buttocks, brought in by wheelchair, slightly hypertensive, patient doesn;t appear to be in any distress at this time. Physician History: 80-year-old male presents to the emergency room with constipation and difficulty passing stool he reports he has similar issues in the past reports he has been taking oral stool softeners but denies taking any enemas has not seen a GI specialist denies any nausea vomiting denies any diarrhea denies any chest pain shortness of breath denies any fevers or chills now in ED for further eval Timing/Duration: today Activities at Onset: none Abdominal Pain Onset Location: generalized abdomen Pain Radiation: no radiation Severity of Pain-Max: mild Severity of Pain-Current: mild Associated Symptoms: No diaphoresis, No fatigue, No headache, No heartburn, No shortness of breath Allergies/Adverse Reactions: potassium [Potassium] Adverse Reaction (Intermediate, Verified 07/10/25 20:50) states feels hot flashes,states a presc. of it was making him itch,hot Home Medications: lamoTRIgine [Lamictal] 150 mg PO BID 08/03/14 [History] Latanoprost [Xalatan] 1 drop OP QHS 04/27/16 [History] Lorazepam 1 mg [Ativan 1 MG] 1 mg PO TID PRN 05/12/24 [History] Melatonin/Pyridoxine [Melatonin 5 mg Tablet] 5 mg PO HS 05/12/24 [History] Timolol Maleate 0.5% Eye [Timoptic 0.5% 5 ml Ophthalmic] 1 drop DROPS BID 05/12/24 [History] Gabapentin [Neurontin ] 300 mg PO QID 06/03/24 [History] Amlodipine Besylate 5 mg [Norvasc 5 mg] 5 mg PO QAM 05/27/25 [History] Aspirin 81 gm Chew [Baby Aspirin 81 mg Chew] 1 tab PO DAILY 05/27/25 [History] Brimonidine Tartrate [Alphagan P] 1 drop OP BID 05/27/25 [History] Cholecalciferol (Vitamin D3) [Vitamin D3] 1,000 units PO DAILY 05/27/25 [History] Cyanocobalamin (Vitamin B-12) [Vitamin B-12] 1 tab PO DAILY 05/27/25 [History] Finasteride 5 mg [Proscar 5 MG] 5 mg PO HS 05/27/25 [History] Nitroglycerin 0.4 mg Tablet [Nitrostat 0.4 MG Tablet] 1 tab SL QIDPRN PRN 05/27/25 [History] Tamsulosin HCl [Flomax] 0.4 mg PO BID 05/27/25 [History] Vit C/E/Zn/Coppr/Lutein/Zeaxan [Preservision Areds 2 Softgel] 1 cap PO BID 07/10/25 [History] Hx Tetanus, Diphtheria Vaccination/Date Given: Yes Hx Influenza Vaccination/Date Given: Yes Hx Pneumococcal Vaccination/Date Given: Yes Travel Risk - International Travel Have you traveled outside of the country in past 3 weeks: No - Emerging Infectious Disease Are you exhibiting symptoms associated with any current EIDs: No Symptoms: Other (Please Comment) Comment: weakness h/o UTI - Review of Systems Constitutional: No Fever, No Chills Eyes: No Symptoms Ears, Nose, & Throat: No Symptoms Respiratory: No Cough, No Dyspnea Cardiac: No Chest Pain, No Edema, No Syncope Abdominal/Gastrointestinal: Abdominal Pain, Constipation Genitourinary Symptoms: No Dysuria Musculoskeletal: No Back Pain, No Neck Pain Skin: No Rash Neurological: No Dizziness, No Focal Weakness, No Sensory Changes Psychological: No Symptoms Endocrine: No Symptoms All Other Systems: Reviewed and Negative - Past Medical History Pertinent Past Medical History: Yes Neurological History: Alzheimer's Disease, Peripheral Neuropathy, Other ENT History: Cataracts, Glaucoma Cardiac History: Angina, Hypertension Respiratory History: No Pertinent History Endocrine Medical History: No Pertinent History Musculoskeletal History: Arthritis GI Medical History: GERD, Gallbladder Disease, Hernia History: Renal Disease Psycho-Social History: Anxiety Male Reproductive Disorders: Prostate Problems Other Medical History: Kidney sclerosis, insomnia, UTI - Past Surgical History Past Surgical History: Yes Neuro Surgical History: No Pertinent History Cardiac: No Pertinent History Respiratory: No Pertinent History Gastrointestinal: Hernia Repair Genitourinary: No Pertinent History Musculoskeletal: Joint Replacement, Orthopedic Surgery Male Surgical History: Prostate Surgery Other Surgical History: bilateral lens implant, bilateral hip replacement, back Significant Family History: heart disease, cancer - Social History Smoking Status: Never smoker Exposure to second hand smoke: No Drug Use: none - Social Determinants of Health Will the patient participate in the screening: Yes Do you worry about a steady place to live?: No Do you have any problems with any of the following?: No known problems In the past 12 months,have you had to go without utilities?: No Transportation Issues: No Has anyone in your support network made you feel unsafe?: No Have you or anyone in your house had to go w/o enough food: No - Nursing Vital Signs Nursing Vital Signs: Initial Vital Signs Pulse Rate 73 07/10/25 20:41 Respiratory Rate 18 07/10/25 20:41 Blood Pressure 169/88 07/10/25 20:41 O2 Sat by Pulse Oximetry 98 07/10/25 20:41 Pain Scale Pain Intensity 9 - Physical Exam General Appearance: no apparent distress, alert Eye Exam: PERRL/EOMI, eyes nml inspection Ears, Nose, Throat Exam: normal ENT inspection, pharynx normal, moist mucous membranes Neck Exam: normal inspection, non-tender, supple, full range of motion Respiratory Exam: normal breath sounds, lungs clear, No respiratory distress Cardiovascular Exam: regular rate/rhythm, normal heart sounds Gastrointestinal/Abdomen Exam: soft, No tenderness, No mass Back Exam: normal inspection, normal range of motion, No CVA tenderness, No vertebral tenderness Extremity Exam: normal inspection, normal range of motion, pelvis stable Neurologic Exam: alert, oriented x 3, cooperative, normal mood/affect, nml cerebellar function, sensation nml, No motor deficits Skin Exam: normal color, warm, dry SpO2: 98 Ordered Tests: Active Orders 24 hr Category Date Time Status ABDOMEN AND PELVIS W/0 CONTRAS [CT] Stat Exams 07/10/25 21:26 Taken CBC W DIFF Stat Lab 07/10/25 21:05 Completed CMP Stat Lab 07/10/25 21:05 Completed LIPASE Stat Lab 07/10/25 21:05 Completed Lactic Acid Stat Lab 07/10/25 21:10 Completed UA W/RFX UR CULTURE Stat Lab 07/10/25 22:13 Received Medication Summary Discontinued Medications Generic Name Dose Route Start Last Admin Trade Name Jhoana PRN Reason Stop Dose Admin Sodium Chloride 1,000 mls @ 999 mls/hr 07/10/25 20:57 07/10/25 22:13 Sodium Chloride 0.9% 1000 Ml IV 07/10/25 21:57 Infused .Q1H1M STA Infusion Sodium Chloride Confirm 07/10/25 20:59 Sodium Chloride 0.9% 1000 Ml Administered 07/10/25 21:00 Dose 1,000 mls @ ud .ROUTE .STK-MED ONE Sodium Chloride Confirm 07/10/25 21:05 Sodium Chloride 0.9% 1000 Ml Administered 07/10/25 21:06 Dose 1,000 mls @ ud .ROUTE .STK-MED ONE Lab/Rad Data: Laboratory Result Diagrams 07/10/25 21:05 07/10/25 21:05 Laboratory Results 07/10/25 07/10/25 07/10/25 Range/Units 21:10 21:05 21:05 WBC 6.4 (4.23-9.07) x10^3/uL RBC 4.28 L (4.63-6.08) x10^6/uL Hgb 13.8 (13.7-17.5) g/dL Hct 42.6 (40.1-51.0) % MCV 99.5 H (79.0-92.2) fL MCH 32.2 (25.7-32.2) pg MCHC 32.4 (32.3-36.5) g/dL RDW 13.6 (11.6-14.4) % Plt Count 219 (163-337) x10^3/uL MPV 8.9 L (9.4-12.4) fL Gran % 64.1 (34.0-67.9) % Immature Gran % (Auto) 0.2 (0.001-0.429) % Nucleat RBC Rel Count 0.0 (0.00-0.2) % Eos # (Auto) 0.41 (0.04-0.54) x10^3/uL Immature Gran # (Auto) 0.01 (0.001-0.031) x10^3u/L Absolute Lymphs (auto) 1.28 L (1.32-3.57) x10^3/uL Absolute Monos (auto) 0.57 (0.30-0.82) x10^3/uL Absolute Nucleated RBC 0.00 (0.00-0.012) x10^3u/L Lymphocytes % 19.9 L (21.8-53.1) % Monocytes % 8.9 (5.3-12.2) % Eosinophils % 6.4 (0.8-7.0) % Basophils % 0.5 (0.2-1.2) % Absolute Granulocytes 4.14 (1.78-5.38) x10^3/uL Basophils # 0.03 (0.01-0.08) x10^3/uL Sodium 133 L (135-145) mmol/L Potassium 4.8 (3.5-5.1) mmol/L Chloride 100 (98-107) mmol/L Carbon Dioxide 27 (22-30) mmol/L Anion Gap 10.1 (5-15) MEQ/L BUN 22 H (9-20) mg/dL Creatinine 1.89 H (0.66-1.25) mg/dL Estimated GFR 35.2 ML/MIN Glucose 94 (74-106) mg/dL Lactic Acid 0.8 (0.4-2.0) Calcium 9.0 (8.4-10.2) mg/dL Total Bilirubin 0.40 (0.2-1.3) mg/dL AST 31 (17-59) U/L ALT 15 (0-50) U/L Alkaline Phosphatase 73 (38-126) U/L Serum Total Protein 7.9 (6.3-8.2) g/dL Albumin 4.2 (3.5-5.0) g/dL Lipase 275 (23-300) U/L - Progress Progress Note: 07/10/25 22:[address] shows no evidence of obstruction does have some fecal impaction patient was disimpacted in the ED was given mineral oil enema patient will be discharged with a glycerin suppository recommended gastroenterology follow-up advised she can follow-up with Dr. Aguilar advised a bowel regimen advised to slow down his pop consumption patient does report he drinks daily, Coke and very minimal water intake advised fiber supplementation encouraged him precautions - Departure Departure Disposition: Home Clinical Impression: Constipation Qualifiers: Constipation type: unspecified constipation type Qualified Code(s): K59.00 - Constipation, unspecified Condition: Stable Critical Care Time: No Referrals: TOM AGUILAR MD [Primary Care Provider, [facility]] - Follow up/PCP as directed Instructions: Constipation, Adult (DC) Prescriptions: Glycerin Supp. [Glycerin Adult Suppository] 1 supp.rect RC DAILY PRN PRN #1 supp.rect PRN Reason: Constipation
[2025-07-10 21:25] LABS: Calcium 9.0 mg/dL (8.4-10.2); Carbon Dioxide 27.0 mmol/L (22-30); Creatinine 1 1.89 mg/dL (0.66-1.25); EST GLOMERULAR FILTRATION RATE 35.2 ML/MIN; Glucose 94.0 mg/dL (74-106); Potassium 4.8 mmol/L (3.5-5.1); SGOT/AST 31.0 U/L (17-59); SGPT/ALT 15.0 U/L (0-50); Total Protein 7.9 g/dL (6.3-8.2)
[2025-07-10 22:31] LABS: Glucose, Urine Negative (Negative); Protein,Urine Dip Negative (Negative); RBC 0-2 /HPF (0-5); WBC 0-2 /HPF (0-5)
[2025-07-10 23:03] VITALS: BP 166/87; PULSE 104; RESP 18; O2SAT 95
--- NOTE | 2025-07-11 09:04 | XRAY ---
Indication: Constipation. Multiple contiguous axial images obtained through the abdomen and pelvis without contrast. Comparison: June 17, 2025. Study slightly degraded by mild respiration artifact throughout. Lung bases again demonstrates mild bibasilar subsegmental atelectasis/scarring and right hemidiaphragm elevation. No infiltrate or effusion. Heart not enlarged. Images through pelvis again degraded by extreme beam artifact from bilateral total hip arthroplasty. Noncontrasted stomach and bowel loops appear nonobstructed. There is again mild diffuse scattered colonic fecal debris throughout with mild rectal fecal impaction. Again nonobstructing left renal punctate calculus, small left/tiny right renal cysts, splenic/hepatic calcified granulomas, prostate radiation seeds, and cholecystectomy. No free fluid/air. Remaining liver, pancreas, spleen, adrenal glands, kidneys, ureters, and bladder are grossly unremarkable for noncontrast exam. There remains mild scattered aortoiliac calcifications without AAA. Osseous structures grossly intact again with osteopenia, mild/moderate multilevel thoracolumbar degenerative spondylosis, mild levoscoliosis, bilateral L1-L5 facet screws, and L1-L3 laminectomy. Impression: 1. Respiration artifact and bilateral total hip arthroplasty beam artifact. 2. Again mild diffuse fecal stasis with rectal fecal impaction. 3. Chronic findings including bibasilar atelectasis/scarring, right hemidiaphragm elevation, nonobstructing left renal punctate calculus, bilateral renal cysts, arteriosclerotic disease, chronic bony findings, and old granulomatous disease. 4. No new/acute findings on this noncontrast exam.
== END 2025-07-10 23:04 | disposition home or self-care (01) ==
LOC: ED 20:32
DX: K59.00 Constipation, unspecified (principal); I10 Essential (primary) hypertension; Z79.899 Other long term (current) drug therapy